=== PATIENT | female | born 1955 | race Caucasian/White ===

== ENCOUNTER → 2020-03-19 11:25 | Outpatient (CLI) | payer MEDICARE, SELFPAY ==
--- NOTE | ~2020-03-19 | MM_ITS ---
EXAMINATION: MM screening [facility] BI w grayson HISTORY: Screening mammogram TECHNIQUE: Craniocaudal and mediolateral oblique 3-D tomosynthesis images were obtained and synthetic 2-D images were generated. CAD analysis was submitted and interpreted. COMPARISON: 07/25/2014, 04/13/2016 bilateral digital screening mammogram examinations BREAST PARENCHYMAL COMPOSITION: There are scattered areas of fibroglandular density. FINDINGS: There are scattered occasional bilateral breast calcifications. There is no evidence of angel picious mass, calcification, or architectural distortion to suggest malignancy in either breast. Ther e has been no suspicious interval change. IMPRESSION: 1. No mammographic evidence of malignancy. 2. Recommend routine screening mammography in one year. BI-RADS Category 2: Benign finding(s). Reviewed, dictated and finalized at location A.
== END ==
PROVIDERS: PCP Family Medicine; Visit Provider Family Medicine
DX: Z12.31 Encounter for screening mammogram for malignant neoplasm of breast (principal)
CPT/HCPCS: 77063; 77067

== ENCOUNTER → 2020-03-23 12:05 | Outpatient (CLI) | payer MEDICARE, SELFPAY ==
--- NOTE | ~2020-03-23 | DEXA_ITS ---
Bone Density Report Name: Mehdi Lai Age: 64 Sex: Female Ethnicity: White Date of : 1955 Indication: postmenopausal; screening for osteoporosis; history of glucocorticoids; asthma or emphysema; Referring Provider: MJ DIAS Study: Bone densitometry was performed. Exam Date: March 23, 2020 Accession number: [id number] Bone Density: Region BMD T-score Z-score Classification AP Spine (L1-L4) 0.881 -1.5 0.3 Osteopenia Femoral Neck (Left) 0.534 -2.8 -1.3 Osteoporosis Total Hip (Left) 0.631 -2.5 -1.3 Osteoporosis Femoral Neck (Right) 0.667 -1.6 -0.1 Osteopenia Total Hip (Right) 0.658 -2.3 -1.1 Osteopenia Total Hip Mean 0.645 -2.4 -1.2 Osteopenia World Health Organization criteria for BMD impression classify patients as: Normal (T-score at or above -1.0), Osteopenia (T-score between -1.0 and -2.5), or Osteoporosis (T-score at or below -2.5). 10-year Fracture Risk: FRAX not reported because: Some T-score for Spine Total or Hip Total or Femoral Neck at or below -2.5 Clinical Information Provided by Patient: Has taken Glucocorticoids Has used the following medications: Calcium Has the following medical conditions: Asthma or Emphysema Patient maximum height was 65 Menopause Age: 45 No regular weight bearing exercise Drinks caffeinated beverages Onset of menses at age 11 Number of children 0 Impression: The patient has osteoporosis, based on the Left Femoral Neck T-score. The patient has risk factors, including: history of glucocorticoid therapy. Discussion: INCREASED RISK OF FRACTURE. BONE DENSITY IS UNDESIRABLY LOW AT ONE OR MORE SKELETAL SITES, CONSISTENT WITH POSTMENOPAUSAL OSTEOPOROSIS. This patient's lowest T-score meets the World Health Organization's (WHO) criteria for osteoporosis at one or more sites (T-score -2.5 or below). In untreated patients, the risk of osteoporotic fracture increases approximately two-fold for each 1.0 SD decrease in T-score. Low bone density is not the only risk factor for fracture; also consider factors such as patient's age, frailty or poor health, risk of falling, risk of injury, previous osteoporotic fracture, family history of osteoporosis, cigarette smoking, low body weight, etc. Not everyone with low bone mineral density has osteoporosis; osteomalacia and other metabolic bone disorders should also be considered. Patients who have osteoporosis should be evaluated for specific diseases and conditions (secondary causes) that may cause or contribute to bone loss. The [place] [employer]ocrinologists (AACE) and National Osteoporosis Foundation (NOF) recommend pharmacologic intervention for all postmenopausal women whose T-score is in this range. The patient should follow a healthful lifestyle (good nutrition with adequate calcium and vitamin D,
== END ==
PROVIDERS: PCP Family Medicine; Visit Provider Family Medicine
DX: Z78.0 Asymptomatic menopausal state (principal); M85.89 Other specified disorders of bone density and structure, multiple sites; M81.0 Age-related osteoporosis without current pathological fracture
CPT/HCPCS: 77080

== ENCOUNTER 2021-02-16 18:42 | Emergency (ER) | payer MEDICARE, SELFPAY ==
--- NOTE | ~2021-02-16 | XR_ITS ---
XR chest 2V DATE: 02/16/2021 19:21 INDICATION: Chest pain. Hyperkalemia. TECHNIQUE: PA and lateral views COMPARISON: None FINDINGS: Normal heart size. No hilar or mediastinal enlargement. Bilateral hyperinflation. No pulmonary infiltrate or consolidation, pleural effusion or pulmonary vas cular congestion or pneumothorax. Diffuse osteopenia. Scoliosis and degenerative spurring of the thoracic and lumbar spine. Probable cholecystectomy. IMPRESSION: Moderate bilateral hyperinflation; no active cardiopulmonary disease Reviewed, dictated and finalized at location A. IMPRESSION: Moderate bilateral hyperinflation; no active cardiopulmonary diseas e
[2021-02-16 18:55] VITALS: BP 154/75; PULSE 91; RESP 17; TEMP 36.4; O2SAT 100
[2021-02-16 19:19] LABS: Basophils Absolute Auto 0.1 K/mm3 (0.0-0.1); Basophils Percent Auto 0.7 % (0.2-1.2); Eosinophils Percent Auto 0.6 % (0-4.4); Hematocrit 41.2 % (37.0-47.0); Hemoglobin 12.5 g/dL (12.0-15.0); Immature Granulocyte Absolute 0.04 K/mm3 (0.00-0.031); Immature Granulocyte Percent A 0.6 % (0-0.5); Lymphocytes Absolute Auto 1.75 K/mm3 (0.9-3.2); Lymphocytes Percent Auto 26.2 % (18.3-44.2); Mean Corpuscular HGB Conc 30.3 g/dl (32-36); Mean Corpuscular Hemoglobin 26.5 pg (26-34); Mean Corpuscular Volume 87.5 fl (80-100); Mean Platelet Volume 9.4 fl (7.4-10.4); Monocytes Absolute Auto 0.4 K/mm3 (0.1-0.6); Monocytes Percent Auto 5.7 % (2.6-8.5); Neutrophils Absolute Auto 4.4 K/mm3 (1.3-6.7); Neutrophils Percent Auto 66.2 % (45.5-73.1); Platelet Count Result 284 k/mm3 (150-375); Red Blood Count 4.71 M/mm3 (4.2-5.4); Red Cell Distribution Width 14.6 % (11.5-14.5); White Blood Count 6.7 K/mm3 (4.5-10.0)
[2021-02-16 19:28] LABS: INR 0.8; Prothrombin Time 11.3 Seconds (11.1-14.7)
[2021-02-16 19:29] LABS: Anion Gap 8 mmol/L (8-16); Blood Urea Nitrogen 14 mg/dL (7-17); Calcium 10.2 mg/dL (8.4-10.2); Carbon Dioxide 30 mmol/L (22-30); Chloride 103 mmol/L (98-107); Estimated CRCL calculation 59 ml/min; Estimated Glomerular Filt Rate > 60; Glucose 120 mg/dL (65-110); Partial Thromboplastin Time 27.8 SECONDS (22.3-36.8); Potassium 4.2 mmol/L (3.4-5.0); Sodium 141 mmol/L (137-145)
[2021-02-16 19:40] LABS: Troponin I < 0.012 ng/mL (0.000-0.034)
--- NOTE | 2021-02-16 20:09 | ED.GENADULT ---
HPI - General Adult General Chief complaint: Recheck/Abnormal Lab/Rx Stated complaint: Sent by PCP for elevated Potassium Time Seen by Provider: 02/16/21 20:01 Source: patient History of Present Illness HPI narrative: Patient is a 65 y/o female complaining of high potassium. She states that she was at Dr. Miller's (her director fraud at [facility]) office earlier today. She had routine labs done and she was told later that her potassium was 6.0 and she was instructed to go to ED for further evaluation. She states that she feels well and has no complaint at this time. Related Data Home Medications Medication Instructions Recorded Confirmed cetirizine 10 mg tablet 10 mg PO DAILY 05/23/19 02/10/21 fluticasone propionate 50 2 spray NASAL BID ml 05/23/19 02/10/21 mcg/actuation nasal spray,suspension levothyroxine 100 mcg tablet 100 mcg PO DAILY 05/23/19 02/10/21 metformin 1,000 mg tablet 1,000 mg PO BID 05/23/19 02/10/21 sitagliptin 100 mg tablet 100 mg PO DAILY 05/23/19 02/10/21 acetaminophen 650 mg PO Q8H 06/02/19 02/10/21 biotin 5,000 mcg PO DAILY 06/02/19 02/10/21 calcium carbonate-vitamin D3 1 tablet PO BID 06/02/19 02/10/21 [Calcium 500 + D (D3)] ferrous sulfate 324 mg PO DAILY 06/02/19 02/10/21 glucosamine sulfate [Glucosamine] 500 mg PO BID 06/02/19 02/10/21 loperamide 2 mg PO Q4H PRN 06/02/19 02/10/21 valacyclovir [Valtrex] 1,000 mg PO Q12H 06/02/19 02/10/21 liothyronine 5 mcg tablet 10 mcg PO BID tablet 03/03/20 02/10/21 glipizide 10 mg PO BID 01/15/21 02/10/21 Allergies Allergy/AdvReac Type Severity Reaction Status Date / Time azithromycin Allergy Intermediate Hives / Verified 02/10/21 15:00 Red Face Beta-Blockers Allergy Intermediate respiratory Verified 02/10/21 15:00 (Beta-Adrenergic Bloc distress bupivacaine Allergy Intermediate Hives Verified 02/10/21 15:00 cephalexin Allergy Intermediate Hives Verified 02/10/21 15:00 codeine Allergy Intermediate Hives / Verified 02/10/21 15:00 Red Face doxycycline Allergy Intermediate Hives Verified 02/10/21 15:00 erythromycin base Allergy Intermediate Hives / Verified 02/10/21 15:00 Red Face oxycodone Allergy Intermediate Hives / Verified 02/10/21 15:00 Red Face prochlorperazine Allergy Intermediate Hives Verified 02/10/21 15:00 promethazine Allergy Intermediate Hives Verified 02/10/21 15:00 epinephrine Allergy Unknown Unknown Verified 02/10/21 15:00 Review of Systems Review of Systems: All systems reviewed & are unremarkable except as noted in HPI and below Constitutional: Constitutional: Denies chills, Denies fever(s), Denies headache(s) and Denies weakness Eyes: Eyes: Denies blurry vision ENT: Denies headache(s) and Denies neck pain Cardiovascular: Cardiovascular: Denies chest pain and Denies dyspnea Respiratory: Respiratory: Denies cough and Denies dyspnea Gastrointestinal: Gastrointestinal: Denies abdominal pain, Denies diarrhea, Denies nausea and Denies vomiting Genitourinary: Genitourinary: Denies hematuria and Denies dysuria Musculoskeletal: Musculoskeletal: Denies back pain and Denies neck pain Neurologic: Denies headache(s) and Denies weakness [facility] Past Medical History Medical History (Updated 02/17/21 @ 00:00 by Brayden Daemon) Chronic cluster headache, not intractable Chronic pain disorder Continuous urine leakage Hypothyroidism, acquired, autoimmune Incontinence of feces MDD (major depressive disorder), recurrent episode, moderate Metacarpophalangeal joint pain of right hand Mixed obsessional thoughts and acts Other iron deficiency anemias Primary osteoarthritis of first carpometacarpal joint of left hand Unspecified open wound of abdominal wall, unspecified quadrant without penetration into peritoneal cavity, subsequent encounter Surgical History Surgical History History of appendectomy History of cholecystectomy History of parathyroidectomy Hist
--- NOTE | 2021-02-16 20:12 | ECG_ITS ---
Measurements Intervals [place] Rate: 75 P: 53 GA: 149 QRS: -14 QRSD: 78 T: 13 QT: 350 QTc: 392 Interpretive Statements SINUS RHYTHM INCOMPLETE RIGHT BUNDLE BRANCH BLOCK LOW VOLTAGE- PRECORDIAL LEADS INFERIOR INFARCT, AGE INDETERMINATE BASELINE ARTIFACT- I, AVR, AVL ABNORMAL ECG Electronically Signed On 02-17-2021 6:26:18 CDT by Teddy Joshi D.O.
[2021-02-16 20:25] VITALS: BP 153/74; PULSE 81; RESP 20
[2021-02-16 21:26] VITALS: PULSE 79; RESP 20; O2SAT 9
== END 2021-02-16 21:57 | disposition home or self-care (01) ==
PROVIDERS: Emergency Provider Emergency Medicine; PCP Family Medicine
DX: Z03.89 Encounter for observation for other suspected diseases and conditions ruled out (principal); G89.29 Other chronic pain; F32.9 Major depressive disorder, single episode, unspecified; M18.9 Osteoarthritis of first carpometacarpal joint, unspecified; D50.9 Iron deficiency anemia, unspecified; E89.0 Postprocedural hypothyroidism; Z87.891 Personal history of nicotine dependence; Z79.84 Long term (current) use of oral hypoglycemic drugs; Z79.899 Other long term (current) drug therapy; Z98.84 Bariatric surgery status; I45.10 Unspecified right bundle-branch block; R94.31 Abnormal electrocardiogram [ECG] [EKG]
CPT/HCPCS: 36415; 71046; 80048; 84484; 85025; 85610; 85730; 93005; 99284

== ENCOUNTER 2021-02-23 14:12 | Outpatient (RCR) | payer MEDICARE, SELFPAY ==
[2021-01-15 09:00] VITALS: BMI 24.9
--- NOTE | 2021-02-11 13:55 | PCWOUND ---
Wound Center Patient did not show for her 1230 appointment today.
--- NOTE | 2021-02-23 13:42 | PCWOUND ---
Addendum entered by Janessa Lopez RN 02/23/21 14:15: Patient showed up at 1412. Original Note: WOCN NOTE patient did not show up for her scheduled appointment. No call was made to cancel.
== END 2021-04-05 09:28 | disposition home or self-care (01) ==
LOC: ANHWOC 14:12
PROVIDERS: PCP Family Medicine; Visit Provider Family Medicine
DX: S31.109D Unspecified open wound of abdominal wall, unspecified quadrant without penetration into peritoneal cavity, subsequent encounter (principal)
CPT/HCPCS: 87070; 87147; 87181; 87186; 87205; 99212; 99213; A9270; G0463

== ENCOUNTER 2021-04-19 10:40 | Outpatient (RCR) | payer MEDICARE, SELFPAY | END 2021-07-05 08:11 | disposition home or self-care (01) | LOC: ANHWOC 10:40 | PROVIDERS: PCP Family Medicine; Visit Provider Plastic Surgery | DX: S31.109D Unspecified open wound of abdominal wall, unspecified quadrant without penetration into peritoneal cavity, subsequent encounter (principal); S71.002D Unspecified open wound, left hip, subsequent encounter | CPT/HCPCS: 99212; A9270; G0463 ==

== ENCOUNTER 2021-05-24 15:11 | Outpatient (CLI) | payer MEDICARE, SELFPAY ==
[2021-05-24 16:46] LABS: Add Urine Microscopic? YES; Appearance Urine Cloudy (Clear); Bacteria Urine Trace /hpf; Bilirubin Urine Negative (Negative); Blood Urine Negative (Negative); Color Urine Yellow (Yellow); Glucose Urine UA Negative (Negative); Ketones Urine Negative (Negative); Leukocyte Esterase Ur Negative LEU/UL (Negative); Nitrate Urine Negative (Negative); Protein Urine Negative (Negative); RBC Urine 0-2 /hpf (0-2); Specific Grav Ur 1.013 (1.001-1.035); Squamous Epithelial Cell Urine Rare /hpf (Few); Urobilinogen Urine Negative mg/dL (<2.0); WBC Urine 0-3 /hpf
== END 2021-05-24 15:12 | disposition home or self-care (01) ==
LOC: ANHLAB 15:15
PROVIDERS: Nurse Practitioner Gerontology; Visit Provider Internal Medicine Hematology & Oncology
DX: R30.0 Dysuria (principal)
CPT/HCPCS: 81001

== ENCOUNTER 2021-07-27 14:52 | Outpatient (CLI) | payer MEDICARE, SELFPAY ==
[2021-07-27 15:32] LABS: Alanine Aminotransferase 16 U/L (4-35); Albumin Level 4.6 g/dL (3.5-5.1); Alkaline Phosphatase 66 U/L (38-126); Anion Gap 10 mmol/L (8-16); Aspartate Amino Transferase 27 U/L (14-36); Bilirubin,Total 0.4 mg/dL (0.2-1.3); Blood Urea Nitrogen 13 mg/dL (7-17); Calcium 9.9 mg/dL (8.4-10.2); Carbon Dioxide 29 mmol/L (22-30); Chloride 102 mmol/L (98-107); Estimated Glomerular Filt Rate > 60; Glucose 84 mg/dL (65-110); Potassium 5.2 mmol/L (3.4-5.0); Sodium 141 mmol/L (137-145)
[2021-07-27 16:04] LABS: Thyroid Stimulating Hormone 0.586 uIU/mL (0.465-4.680); Total Triiodothyronine (T3) 1.04 NG/ML (0.97-1.69)
[2021-07-27 16:25] LABS: Vitamin B12 > 1000.0 pg/mL (239-931)
[2021-07-27 16:38] LABS: Free T4 Free Thyroxine 1.17 ng/mL (0.78-2.19)
== END 2021-07-27 14:53 | disposition home or self-care (01) ==
LOC: ANHLAB 14:54
PROVIDERS: Nurse Practitioner Gerontology; PCP Family Medicine; Visit Provider Internal Medicine Hematology & Oncology
DX: E06.3 Autoimmune thyroiditis (principal); R53.83 Other fatigue
CPT/HCPCS: 36415; 80053; 82607; 84439; 84443; 84480

== ENCOUNTER 2022-01-17 17:15 | Outpatient (CLI) | payer MEDICARE, SELFPAY ==
[2022-01-17 17:55] LABS: Basophils Absolute Auto 0.1 K/mm3 (0.0-0.1); Basophils Percent Auto 0.7 % (0.2-1.2); Eosinophils Absolute Auto 0.1 K/mm3 (0-0.3); Eosinophils Percent Auto 1.2 % (0-4.4); Hematocrit 38.6 % (37.0-47.0); Hemoglobin 11.6 g/dL (12.0-15.0); Immature Granulocyte Absolute 0.03 K/mm3 (0.00-0.031); Immature Granulocyte Percent A 0.4 % (0-0.5); Lymphocytes Absolute Auto 2.13 K/mm3 (0.9-3.2); Lymphocytes Percent Auto 31.1 % (18.3-44.2); Mean Corpuscular HGB Conc 30.1 g/dl (32-36); Mean Corpuscular Hemoglobin 26.1 pg (26-34); Mean Corpuscular Volume 86.9 fl (80-100); Mean Platelet Volume 9.9 fl (7.4-10.4); Monocytes Absolute Auto 0.6 K/mm3 (0.1-0.6); Neutrophils Percent Auto 58.6 % (45.5-73.1); Platelet Count Result 284 k/mm3 (150-375); Red Blood Count 4.44 M/mm3 (4.2-5.4); Red Cell Distribution Width 15.5 % (11.5-14.5); White Blood Count 6.9 K/mm3 (4.5-10.0)
[2022-01-17 19:05] LABS: Iron 44 ug/dL (37-170)
[2022-01-17 19:12] LABS: Folic Acid 18.6 ng/mL (2.76->20)
[2022-01-17 19:14] LABS: Percent Iron Saturation 11 % (20-50)
[2022-01-17 19:41] LABS: Ferritin 6.59 ng/mL (11.1-264)
== END 2022-01-17 17:16 | disposition home or self-care (01) ==
PROVIDERS: PCP Family Medicine; Visit Provider Internal Medicine Hematology & Oncology
DX: D51.9 Vitamin B12 deficiency anemia, unspecified (principal)
CPT/HCPCS: 36415; 82607; 82728; 82746; 83540; 83550; 85025

== ENCOUNTER 2022-03-08 17:14 | Outpatient (CLI) | payer MEDICARE, SELFPAY ==
[2022-03-08 18:00] LABS: Basophils Absolute Auto 0.1 K/mm3 (0.0-0.1); Basophils Percent Auto 0.8 % (0.2-1.2); Eosinophils Absolute Auto 0.1 K/mm3 (0-0.3); Eosinophils Percent Auto 1.2 % (0-4.4); Hematocrit 38.2 % (37.0-47.0); Hemoglobin 11.8 g/dL (12.0-15.0); Immature Granulocyte Absolute 0.05 K/mm3 (0.00-0.031); Immature Granulocyte Percent A 0.7 % (0-0.5); Lymphocytes Absolute Auto 1.95 K/mm3 (0.9-3.2); Lymphocytes Percent Auto 25.5 % (18.3-44.2); Mean Corpuscular HGB Conc 30.9 g/dl (32-36); Mean Corpuscular Volume 87.4 fl (80-100); Monocytes Absolute Auto 0.5 K/mm3 (0.1-0.6); Monocytes Percent Auto 6.4 % (2.6-8.5); Neutrophils Percent Auto 65.4 % (45.5-73.1); Platelet Count Result 278 k/mm3 (150-375); Red Blood Count 4.37 M/mm3 (4.2-5.4); White Blood Count 7.7 K/mm3 (4.5-10.0)
[2022-03-08 18:16] LABS: Alanine Aminotransferase 14 U/L (6-35); Albumin Level 4.2 g/dL (3.5-5.1); Alkaline Phosphatase 53 U/L (38-126); Anion Gap 10 mmol/L (8-16); Aspartate Amino Transferase 26 U/L (14-36); Bilirubin,Total 0.4 mg/dL (0.2-1.3); Blood Urea Nitrogen 15 mg/dL (7-17); Calcium 9.6 mg/dL (8.4-10.2); Carbon Dioxide 27 mmol/L (22-30); Chloride 103 mmol/L (98-107); Estimated Glomerular Filt Rate > 60; Glucose 108 mg/dL (65-110); Potassium 4.6 mmol/L (3.4-5.0); Sodium 140 mmol/L (137-145)
[2022-03-08 18:29] LABS: Free T4 Free Thyroxine 1.19 ng/mL (0.78-2.19)
[2022-03-08 18:42] LABS: Thyroid Stimulating Hormone 0.683 uIU/mL (0.465-4.680); Total Triiodothyronine (T3) 0.93 NG/ML (0.97-1.69)
== END 2022-03-08 17:15 | disposition home or self-care (01) ==
PROVIDERS: PCP Family Medicine; Visit Provider Nurse Practitioner Gerontology
DX: F33.1 Major depressive disorder, recurrent, moderate (principal); E06.3 Autoimmune thyroiditis; D50.9 Iron deficiency anemia, unspecified
CPT/HCPCS: 36415; 80053; 84439; 84443; 84480; 85025

== ENCOUNTER 2022-04-15 15:20 | Outpatient (CLI) | payer MEDICARE, SELFPAY ==
[2022-04-15 15:46] LABS: Basophils Absolute Auto 0.1 K/mm3 (0.0-0.1); Basophils Percent Auto 0.8 % (0.2-1.2); Eosinophils Absolute Auto 0.1 K/mm3 (0-0.3); Hematocrit 37.7 % (37.0-47.0); Hemoglobin 11.7 g/dL (12.0-15.0); Immature Granulocyte Absolute 0.03 K/mm3 (0.00-0.031); Immature Granulocyte Percent A 0.4 % (0-0.5); Lymphocytes Absolute Auto 1.91 K/mm3 (0.9-3.2); Lymphocytes Percent Auto 26.3 % (18.3-44.2); Mean Corpuscular Volume 90.2 fl (80-100); Mean Platelet Volume 9.4 fl (7.4-10.4); Monocytes Absolute Auto 0.5 K/mm3 (0.1-0.6); Monocytes Percent Auto 6.2 % (2.6-8.5); Neutrophils Absolute Auto 4.7 K/mm3 (1.3-6.7); Neutrophils Percent Auto 65.3 % (45.5-73.1); Platelet Count Result 282 k/mm3 (150-375); Red Blood Count 4.18 M/mm3 (4.2-5.4); Red Cell Distribution Width 15.9 % (11.5-14.5); White Blood Count 7.3 K/mm3 (4.5-10.0)
[2022-04-15 15:57] LABS: Anion Gap 6 mmol/L (8-16); Blood Urea Nitrogen 16 mg/dL (7-17); Calcium 9.2 mg/dL (8.4-10.2); Carbon Dioxide 31 mmol/L (22-30); Chloride 100 mmol/L (98-107); Estimated Glomerular Filt Rate 55; Glucose 172 mg/dL (65-110); Potassium 4.7 mmol/L (3.4-5.0); Sodium 137 mmol/L (137-145)
[2022-04-15 17:18] LABS: Folic Acid > 20.0 ng/mL (2.76->20)
== END 2022-04-15 15:21 | disposition home or self-care (01) ==
PROVIDERS: PCP Family Medicine; Referring Provider Internal Medicine Endocrinology, Diabetes & Metabolism; Visit Provider Internal Medicine Hematology & Oncology
DX: D50.9 Iron deficiency anemia, unspecified (principal)
CPT/HCPCS: 36415; 80048; 82607; 82728; 82746; 85025

== ENCOUNTER 2022-06-07 16:39 | Outpatient (CLI) | payer MEDICARE, SELFPAY ==
[2022-06-07 17:46] LABS: Alanine Aminotransferase 16 U/L (6-35); Albumin Level 4.4 g/dL (3.5-5.1); Alkaline Phosphatase 59 U/L (38-126); Anion Gap 9 mmol/L (8-16); Aspartate Amino Transferase 22 U/L (14-36); Bilirubin,Total 0.3 mg/dL (0.2-1.3); Blood Urea Nitrogen 12 mg/dL (7-17); Calcium 9.5 mg/dL (8.4-10.2); Carbon Dioxide 28 mmol/L (22-30); Chloride 101 mmol/L (98-107); Cholesterol 190 mg/dL (0-200); Estimated Glomerular Filt Rate > 60; Glucose 103 mg/dL (65-110); HDL Direct 71 mg/dL; Potassium 5.1 mmol/L (3.4-5.0); Sodium 138 mmol/L (137-145); Triglycerides 185 mg/dL (<150)
[2022-06-07 18:29] LABS: LDL Cholesterol Direct 77 mg/dL
[2022-06-07 18:34] LABS: Thyroid Stimulating Hormone Reflex 0.464 uIU/mL (0.465-4.68)
[2022-06-08 03:20] LABS: Free T4 Free Thyroxine Reflex 1.69 ng/dL (0.78-2.19)
[2022-06-08 04:51] LABS: Total Triiodothyronine (T3) 0.98 NG/ML (0.97-1.69)
== END 2022-06-07 16:40 | disposition home or self-care (01) ==
PROVIDERS: PCP Family Medicine; Visit Provider Internal Medicine Endocrinology, Diabetes & Metabolism
DX: E11.65 Type 2 diabetes mellitus with hyperglycemia (principal)
CPT/HCPCS: 36415; 80053; 80061; 84439; 84443; 84480

== ENCOUNTER 2022-06-21 16:25 | Outpatient (CLI) | payer MEDICARE, SELFPAY ==
[2022-06-30 12:59] LABS: Barbiturates NEGATIVE; Benzodiazepines POSITIVE
[2022-06-30 13:00] LABS: Amphetamines POSITIVE; PCP NEGATIVE ng/mL (<25)
[2022-06-30 13:01] LABS: Cocaine Metabolites NEGATIVE; Marijuana Metabolites NEGATIVE
== END 2022-06-21 16:26 | disposition home or self-care (01) ==
LOC: ANHLAB 16:27
PROVIDERS: PCP Family Medicine; Visit Provider Physician Assistant
DX: F11.20 Opioid dependence, uncomplicated (principal)
CPT/HCPCS: 80307

== ENCOUNTER 2022-12-29 23:45 | Emergency (ER) | payer MEDICARE, SELFPAY ==
--- NOTE | ~2022-12-29 | XR_ITS ---
Right Knee Technique: AP, lateral, and oblique views were obtained. Clinical History: Pain Findings: No fracture or dislocation is seen. Mild tricompartmental degenerative spurring noted. Vasc ular calcifications are present. No joint effusion is seen. Impression: No fracture or dislocation. Mild tricompartmental degenerative spurring. Reviewed, dictated and finalized at location . Impression: No fracture or dislocation. Mild tricompartmental degenerative spurring.
--- NOTE | ~2022-12-29 | XR_ITS ---
Left Knee Technique: AP, lateral, and sunrise views were obtained. Clinical History: Pain Findings: There is a transverse linear lucency in the inferior patella bilaterally and lateral view, which could reflect very subtle nondisplaced fracture. No other fracture or dislocation seen.. Minima l degenerative spurring noted. Soft tissues are unremarkable. No joint effusion is seen. Impression: Questionable nondisplaced transverse patellar fracture. Correlate for point tenderness. Consider MR t o confirm or exclude as indicated. Minimal degenerative spurring. Reviewed, dictated and finalized at location M. Impression: Questionable nondisplaced transverse patellar fracture. Correlate for point ten derness. Consider MR to confirm or exclude as indicated. Minimal degenerative spurring.
--- NOTE | ~2022-12-29 | CT_ITS ---
Non-contrast Head CT History: Head injury COMPARISON: 03/08/2017 Technique: Axial non-contrast imaging of the brain was performed. Dose reduction technique was used on this scan by utilizing automated exposure control and iterative reconstruction technique. The dose -length product (DLP) was 605.33 mGy-cm. Findings: There is no evidence of intracranial hemorrhage, mass lesion, or acute infarct. Brain par enchyma appears normal. The ventricles and subarachnoid spaces are normal in size. The calvarium ap pears normal. The visualized paranasal sinuses and mastoid air cells are clear. Focal soft tissue sw elling noted in the right supraorbital scalp. Impression: No intracranial abnormality seen. Focal soft tissue swelling in the right supraorbital scalp. Reviewed, dictated and finalized at [facility]. Impression: No intracranial abnormality seen. Focal soft tissue swelling in the right supraorbital scalp.
--- NOTE | ~2022-12-29 | CT_ITS ---
CT Facial Bones and Cervical Spine Clinical Indication: Injury Technique: Contiguous axial scans were obtained through the facial bones and cervical spine followed by coronal and sagittal reconstructions. Dose reduction technique was used on this scan by utilizing automated exposure control and iterative reconstruction technique. The dose-length product (DLP) was 195.91 mGy-cm. Findings: CT facial bones: No acute fractures are identified. There are old, healed fracture deformities of the sims of the left maxillary sinus and floor of the left orbit. There is mild left maxillary sinus di sease. The remaining visualized paranasal sinuses are clear. Intraorbital soft tissues appear normal. There is focal soft tissue swelling in the right supraorbital scalp. CT cervical spine: No fractures or subluxation. There is moderate degenerative disc narrowing at C6 -C7. No prevertebral soft tissue swelling. Impression: No acute fracture is seen in the facial bones. No acute fracture or subluxation of the cervical spine. Chronic fracture deformities of the left maxillary sinus and floor the left orbit. Soft tissue swelling in the right supraorbital scalp. Reviewed, dictated and finalized at [facility]. Impression: No acute fracture is seen in the facial bones. No acute fracture or subluxation of the cervical spine. Chronic fracture deformities of the left maxillary sinus and floor the left orb it. Soft tissue swelling in the right supraorbital scalp.
[2022-12-30] VITALS (13 sets, daily range): BP systolic 163–188; BP diastolic 80–93; PULSE 71–91; RESP 12–21; TEMP 36.6; O2SAT 96–100
--- NOTE | 2022-12-30 00:15 | ED.GENADULT ---
HPI - General Adult General Chief complaint: Fall Stated complaint: fall, right eye swelling, left knee pain Time Seen by Provider: 12/30/22 00:08 History of Present Illness HPI narrative: 67-year-old female presented emergency department for evaluation for a ground-level fall. Patient states she was walking and caught her toe on a dog gate and attempted to catch her fall but landed on her knees and her face resulting in facial and knee pain. Related Data Home Medications Medication Instructions Recorded Confirmed cetirizine 10 mg tablet (Zyrtec) 10 mg PO DAILY 05/23/19 12/09/22 fluticasone propionate 50 2 spray intranasal BID 05/23/19 12/09/22 mcg/actuation nasal spray,suspension levothyroxine 100 mcg tablet 100 mcg PO DAILY 05/23/19 12/09/22 (Synthroid) metformin 1,000 mg tablet 1,000 mg PO BID 05/23/19 12/09/22 sitagliptin phosphate 100 mg 100 mg PO DAILY 05/23/19 12/09/22 tablet (Januvia) biotin 2,500 mcg capsule 5,000 mcg PO DAILY 06/02/19 12/09/22 calcium carbonate 500 mg-vitamin 1 tablet PO BID 06/02/19 12/09/22 D3 3.125 mcg (125 unit) tablet (Calcium) liothyronine 5 mcg tablet (Cytomel) 5 mcg PO DAILY 03/03/20 12/09/22 glipizide 5 mg tablet 5 mg PO BID 01/15/21 12/09/22 losartan 50 mg tablet 50 mg PO DAILY 02/01/22 12/09/22 gabapentin 300 mg capsule 600 mg PO QHS 12/09/22 12/09/22 Allergies Allergy/AdvReac Type Severity Reaction Status Date / Time azithromycin Allergy Intermediate Hives / Verified 12/09/22 15:20 Red Face Beta-Blockers Allergy Intermediate respiratory Verified 12/09/22 15:20 (Beta-Adrenergic Bloc distress bupivacaine Allergy Intermediate Hives Verified 12/09/22 15:20 cephalexin Allergy Intermediate Hives Verified 12/09/22 15:20 codeine Allergy Intermediate Hives / Verified 12/09/22 15:20 Red Face doxycycline Allergy Intermediate Hives Verified 12/09/22 15:20 erythromycin base Allergy Intermediate Hives / Verified 12/09/22 15:20 Red Face oxycodone Allergy Intermediate Hives / Verified 12/09/22 15:20 Red Face prochlorperazine Allergy Intermediate Hives Verified 12/09/22 15:20 promethazine Allergy Intermediate Hives Verified 12/09/22 15:20 epinephrine Allergy Unknown Unknown Verified 12/09/22 15:20 Review of Systems Review of Systems: All systems reviewed & are unremarkable except as noted in HPI and below PMFSH Past Medical History Medical History Chronic cluster headache, not intractable Chronic diarrhea Chronic pain disorder Continuous urine leakage Hypothyroidism, acquired, autoimmune Incontinence of feces MDD (major depressive disorder), recurrent episode, moderate Metacarpophalangeal joint pain of right hand Mixed obsessional thoughts and acts Opioid dependence Other iron deficiency anemias Primary osteoarthritis of first carpometacarpal joint of left hand Unspecified open wound of abdominal wall, unspecified quadrant without penetration into peritoneal cavity, subsequent encounter Surgical History Surgical History History of appendectomy History of cholecystectomy History of parathyroidectomy History of thyroidectomy History of tonsillectomy History of umbilical hernia repair Status post gastric bypass for obesity Family History Family History Mother Diabetes mellitus Hypertension Patient's mother is in good health Family history of coronary artery disease Father Diabetes mellitus Patient's father is Family history of cardiovascular disease Social History Social History (Updated 12/09/22 @ 15:28 by Janessa Raza) Social History: Smoking status: Former smoker Tobacco type: cigarettes Second hand tobacco smoke exposure: No Smoking end date: 07/03/91 Alcohol intake: never Substance use: never Substance use type: does not use Lack of Transpor
== END 2022-12-30 04:17 | disposition home or self-care (01) ==
PROVIDERS: Emergency Provider Emergency Medicine; PCP Family Medicine
DX: S82.035A Nondisplaced transverse fracture of left patella, initial encounter for closed fracture (principal); S00.11XA Contusion of right eyelid and periocular area, initial encounter; S80.212A Abrasion, left knee, initial encounter; S80.211A Abrasion, right knee, initial encounter; G89.29 Other chronic pain; G44.029 Chronic cluster headache, not intractable; E06.3 Autoimmune thyroiditis; D50.8 Other iron deficiency anemias; M18.12 Unilateral primary osteoarthritis of first carpometacarpal joint, left hand; E89.0 Postprocedural hypothyroidism; R32 Unspecified urinary incontinence; Z98.84 Bariatric surgery status; Z90.49 Acquired absence of other specified parts of digestive tract; Z87.891 Personal history of nicotine dependence; Z79.84 Long term (current) use of oral hypoglycemic drugs; W18.09XA Striking against other object with subsequent fall, initial encounter
CPT/HCPCS: 70450; 70486; 72125; 73562; 73564; 99284

== ENCOUNTER → 2023-01-02 12:28 | Outpatient (CLI) | payer MEDICARE, SELFPAY ==
--- NOTE | ~2023-01-02 | DEXA_ITS ---
Bone Density Report Name: JH RODRIGUEZ Age: 67 Sex: Female Ethnicity: White Date of : 1955 Indication: postmenopausal osteoporosis; monitoring treatment; height loss; history of glucocorticoids; prior fracture; Referring Provider: JAIME PETTY Study: Bone densitometry was performed. Exam Date: January 02, 2023 Accession number: [id number] Bone Density: Region BMD T-score Z-score Classification AP Spine (L1, L2, L3) 0.872 -1.3 0.6 Osteopenia Femoral Neck (Left) 0.531 -2.9 -1.2 Osteoporosis Total Hip (Left) 0.651 -2.4 -1.0 Osteopenia Femoral Neck (Right) 0.810 -0.3 1.3 Normal Total Hip (Right) 0.706 -1.9 -0.5 Osteopenia Total Hip Mean 0.679 -2.2 -0.8 Osteopenia World Health Organization criteria for BMD impression classify patients as: Normal (T-score at or above -1.0), Osteopenia (T-score between -1.0 and -2.5), or Osteoporosis (T-score at or below -2.5). 10-year Fracture Risk: FRAX not reported because: Some T-score for Spine Total or Hip Total or Femoral Neck at or below -2.5 Treated for osteoporosis Previous Exams: Region Exam Age BMD T-score BMD Change BMD Change Date g/cm2 vs Baseline vs Previous AP Spine(L1, L2, L3) 01/02/2023 67 0.872 -1.3 0.032* 0.032* 03/23/2020 64 0.840 -1.6 Total Hip(Left) 01/02/2023 67 0.651 -2.4 0.019 0.019 03/23/2020 64 0.631 -2.5 Total Hip(Right) 01/02/2023 67 0.706 -1.9 0.048* 0.048* 03/23/2020 64 0.658 -2.3 *Denotes significance at 95% confidence level, LSC for AP Spine = 0.022 g/cm2, LSC for Total Hip = 0.027 g/cm2 Clinical Information Provided by Patient: Has had a low trauma fracture Has taken Glucocorticoids Is being treated for osteoporosis Has used the following medications: Fosamax (i.e. alendronate), Vitamin D, Calcium Patient maximum height was 65 Menopause Age: 45 No regular weight bearing exercise Drinks caffeinated beverages Onset of menses at age 11 Number of children 0 Impression: The patient has established osteoporosis, based on the Left Femoral Neck T-score and the existence of a prior fracture. The patient has risk factors, including: previous fracture, history of glucocorticoid therapy. No significant bone loss was observed. Discussion: PATIENT UNDER TREATMENT WITH NO SIGNIFICANT BMD LOSS SINCE LAST EXAM. In an untreated patient, BMD typically declines with age. A lack of decline or gain is usually a
--- NOTE | ~2023-01-02 | MM_ITS ---
EXAMINATION: MM screening [facility] BI w grayson HISTORY: Screening mammogram TECHNIQUE: Craniocaudal and mediolateral oblique 3-D tomosynthesis images were obtained and synthetic 2-D images were generated. CAD analysis was submitted and interpreted. COMPARISON: 03/19/2020, 04/13/2016, 07/25/2014 BREAST PARENCHYMAL COMPOSITION: The breasts are almost entirely fatty. FINDINGS: No suspicious mass, calcification, or architectural distortion are identified in either lula ast to suggest malignancy. There has been no suspicious interval change. IMPRESSION: 1. No mammographic evidence of malignancy. 2. Recommend routine screening mammography in one year. BI-RADS Category 1: Negative Reviewed, dictated and finalized at location A.
== END ==
PROVIDERS: PCP Nurse Practitioner Gerontology; Visit Provider Nurse Practitioner Gerontology
DX: Z12.31 Encounter for screening mammogram for malignant neoplasm of breast (principal); Z78.0 Asymptomatic menopausal state; M85.88 Other specified disorders of bone density and structure, other site; M81.0 Age-related osteoporosis without current pathological fracture; M85.852 Other specified disorders of bone density and structure, left thigh; M85.851 Other specified disorders of bone density and structure, right thigh
CPT/HCPCS: 77063; 77067; 77080

== ENCOUNTER 2023-06-19 15:21 | Outpatient (CLI) | payer MEDICARE, SELFPAY ==
--- NOTE | ~2023-06-19 | XR_ITS ---
XR foot RT min 3V 06/19/2023 16:00 Indication: Right foot pain Procedure: 4 views right foot Comparison: No prior studies for comparison. Findings: There is mild osteoarthritis of the first MTP joint. Lisfranc joint intact. No acute fractu re or traumatic malalignment. No focal soft tissue abnormality. There is degenerative change of the t alonavicular joint. There is a degenerative calcaneal enthesophyte at the plantar surface. There are vascular calcifications. Impression: 1: Polyarticular osteoarthritis. Reviewed, dictated and finalized at location A. RO[employer] WORK[employer] Impression: 1: Polyarticular osteoarthritis.
== END 2023-06-19 15:22 | disposition home or self-care (01) ==
PROVIDERS: PCP Family Medicine; Visit Provider Physician Assistant
DX: M19.071 Primary osteoarthritis, right ankle and foot (principal); L97.519 Non-pressure chronic ulcer of other part of right foot with unspecified severity
CPT/HCPCS: 73630

== ENCOUNTER 2023-07-09 09:18 | Outpatient (CLI) | payer MEDICARE, SELFPAY ==
--- NOTE | ~2023-07-09 | XR_ITS ---
XR ribs BI 3V w CXR 2V DATE: 07/09/2023 09:52 INDICATION: Fall on back. Bilateral rib pain. TECHNIQUE: PA and lateral chest. 3 views of right ribs. 3 views of the left ribs. COMPARISON: 02/16/2021 2 view chest FINDINGS: There is chronic mild anterior wedging and loss of height of a lower thoracic vertebral bod y. There is dextroscoliosis and mild degenerative spurring of the thoracic spine. No displaced rib fractures are noted. There is diffuse osteopenia. Normal heart size. No hilar or mediastinal enlargement. No pulmonary infiltrate or consolidation, ple ural effusion or pulmonary vascular congestion or pneumothorax is detected. Surgical clips, right upper quadrant. IMPRESSION: No active cardiopulmonary disease Osteopenia Chronic mild compression deformity of lower thoracic vertebral body No displaced rib fracture is detected Status post cholecystectomy Reviewed, dictated and finalized at location B. ILE TRIMMER
== END 2023-07-09 09:19 | disposition home or self-care (01) ==
PROVIDERS: PCP Family Medicine; Visit Provider Family Medicine
DX: M85.80 Other specified disorders of bone density and structure, unspecified site (principal); M43.8X4 Other specified deforming dorsopathies, thoracic region; Z90.49 Acquired absence of other specified parts of digestive tract; W19.XXXA Unspecified fall, initial encounter
CPT/HCPCS: 71046; 71110

== ENCOUNTER 2023-09-12 08:36 | Outpatient (CLI) | payer MEDICARE, SELFPAY ==
[2023-09-12 09:17] LABS: Basophils Absolute Auto 0.1 K/mm3 (0.0-0.1); Basophils Percent Auto 0.9 % (0.2-1.2); Eosinophils Absolute Auto 0.1 K/mm3 (0-0.3); Eosinophils Percent Auto 1.1 % (0-4.4); Hematocrit 36.6 % (37.0-47.0); Hemoglobin 11.2 g/dL (12.0-15.0); Immature Granulocyte Absolute 0.03 K/mm3 (0.00-0.031); Immature Granulocyte Percent A 0.5 % (0-0.5); Lymphocytes Absolute Auto 1.75 K/mm3 (0.9-3.2); Lymphocytes Percent Auto 27.3 % (18.3-44.2); Mean Corpuscular HGB Conc 30.6 g/dl (32-36); Mean Corpuscular Hemoglobin 26.2 pg (26-34); Mean Corpuscular Volume 85.5 fl (80-100); Mean Platelet Volume 9.7 fl (7.4-10.4); Monocytes Absolute Auto 0.5 K/mm3 (0.1-0.6); Neutrophils Percent Auto 63.2 % (45.5-73.1); Platelet Count Result 325 k/mm3 (150-375); Red Blood Count 4.28 M/mm3 (4.2-5.4); Red Cell Distribution Width 15.4 % (11.5-14.5); White Blood Count 6.4 K/mm3 (4.5-10.0)
[2023-09-12 10:08] LABS: Iron 59 ug/dL (37-170)
[2023-09-12 10:11] LABS: Cholesterol 151 mg/dL (0-200); HDL Direct 58 mg/dL; Triglycerides 151 mg/dL (<150)
[2023-09-12 10:16] LABS: Alanine Aminotransferase 16 U/L (6-35); Albumin Level 4.2 g/dL (3.5-5.1); Alkaline Phosphatase 68 U/L (38-126); Anion Gap 8 mmol/L (8-16); Aspartate Amino Transferase 25 U/L (14-36); Bilirubin,Total 0.8 mg/dL (0.2-1.3); Blood Urea Nitrogen 21 mg/dL (7-17); Calcium 9.7 mg/dL (8.4-10.2); Carbon Dioxide 29 mmol/L (22-30); Chloride 100 mmol/L (98-107); Estimated Glomerular Filt Rate > 60; Glucose 143 mg/dL (65-110); Potassium 4.2 mmol/L (3.4-5.0); Sodium 137 mmol/L (137-145)
[2023-09-12 10:18] LABS: Percent Iron Saturation 15 % (20-50)
[2023-09-12 10:22] LABS: NT Pro B Type Natriuretic Pept 133 pg/mL (19.9-100)
[2023-09-12 10:25] LABS: LDL Cholesterol Direct 74 mg/dL
[2023-09-12 10:44] LABS: Total Triiodothyronine (T3) 1.06 NG/ML (0.97-1.69)
[2023-09-12 12:43] LABS: Hemoglobin A1C 7.9 % (<5.7)
[2023-09-12 13:06] LABS: Folic Acid > 20.0 ng/mL (2.76->20)
[2023-09-12 16:30] LABS: Appearance Urine Clear (Clear); Bilirubin Urine Negative (Negative); Blood Urine Negative (Negative); Color Urine Yellow (Yellow); Glucose Urine UA 3+ mg/dL (Negative); Ketones Urine Negative (Negative); Leukocyte Esterase Ur Negative LEU/UL (Negative); Nitrate Urine Negative (Negative); Protein Urine Negative (Negative); Specific Grav Ur 1.024 (1.001-1.035)
[2023-09-12 16:38] LABS: Creatinine Urine 27.3 mg/dL
[2023-09-12 16:47] LABS: Add Urine Microscopic? NO
[2023-09-12 17:04] LABS: Microalbumin Urine Random < 6.0 mg/L (0-16.7)
[2023-09-12 17:05] LABS: MALB Creatinine Ratio < 22.0 mg/g (0-30)
[2023-09-15 07:11] LABS: Triiodothyronine T3 Free 3.3 pg/mL (2.3-4.2)
== END 2023-09-12 08:37 | disposition home or self-care (01) ==
LOC: ANHLAB 08:39
PROVIDERS: Internal Medicine Cardiovascular Disease; Internal Medicine Endocrinology, Diabetes & Metabolism; PCP Family Medicine; Visit Provider Internal Medicine Hematology & Oncology
DX: E78.5 Hyperlipidemia, unspecified (principal); D50.9 Iron deficiency anemia, unspecified; D51.9 Vitamin B12 deficiency anemia, unspecified; E11.65 Type 2 diabetes mellitus with hyperglycemia; E11.59 Type 2 diabetes mellitus with other circulatory complications; I11.0 Hypertensive heart disease with heart failure; I50.32 Chronic diastolic (congestive) heart failure; I15.2 Hypertension secondary to endocrine disorders; E89.0 Postprocedural hypothyroidism; K44.9 Diaphragmatic hernia without obstruction or gangrene; I25.10 Atherosclerotic heart disease of native coronary artery without angina pectoris; I82.890 Acute embolism and thrombosis of other specified veins; N18.2 Chronic kidney disease, stage 2 (mild); I35.1 Nonrheumatic aortic (valve) insufficiency; E06.3 Autoimmune thyroiditis; E07.9 Disorder of thyroid, unspecified; Z79.899 Other long term (current) drug therapy; D50.8 Other iron deficiency anemias
CPT/HCPCS: 36415; 80053; 80061; 82043; 82607; 82728; 82746; 83036; 83540; 83550; 83880; 84439; 84443; 84480; 84481; 85025

== ENCOUNTER 2023-12-04 16:47 | Outpatient (CLI) | payer MEDICARE, SELFPAY ==
[2023-12-05 12:33] LABS: ANA Cascade Screen NEGATIVE (NEGATIVE)
== END 2023-12-04 16:48 | disposition home or self-care (01) ==
PROVIDERS: PCP Family Medicine; Visit Provider Physician Assistant
DX: R53.83 Other fatigue (principal); M25.50 Pain in unspecified joint
CPT/HCPCS: 36415; 86038; 86225; 86235; 86364

== ENCOUNTER 2023-12-21 12:36 | Outpatient (RCR) | payer MEDICARE, SELFPAY ==
[2023-12-21 12:30] VITALS: BMI 23.6
== END 2024-03-06 15:13 | disposition home or self-care (01) ==
LOC: ANHWOC 12:36
PROVIDERS: PCP Family Medicine; Visit Provider Physician Assistant
DX: L97.909 Non-pressure chronic ulcer of unspecified part of unspecified lower leg with unspecified severity (principal); A49.02 Methicillin resistant Staphylococcus aureus infection, unspecified site
CPT/HCPCS: 99204; A9270; G0463

== ENCOUNTER 2024-03-18 15:13 | Outpatient (CLI) | payer MEDICARE, SELFPAY ==
[2024-03-18 15:29] LABS: Basophils Absolute Auto 0.1 K/mm3 (0.0-0.1); Basophils Percent Auto 0.7 % (0.2-1.2); Eosinophils Absolute Auto 0.1 K/mm3 (0-0.3); Eosinophils Percent Auto 0.7 % (0-4.4); Hematocrit 39.7 % (37.0-47.0); Immature Granulocyte Absolute 0.03 K/mm3 (0.00-0.031); Immature Granulocyte Percent A 0.4 % (0-0.5); Lymphocytes Absolute Auto 1.93 K/mm3 (0.9-3.2); Lymphocytes Percent Auto 25.5 % (18.3-44.2); Mean Corpuscular HGB Conc 30.2 g/dl (32-36); Mean Corpuscular Hemoglobin 27.3 pg (26-34); Mean Corpuscular Volume 90.2 fl (80-100); Mean Platelet Volume 9.2 fl (7.4-10.4); Monocytes Absolute Auto 0.5 K/mm3 (0.1-0.6); Neutrophils Absolute Auto 5.1 K/mm3 (1.3-6.7); Neutrophils Percent Auto 66.7 % (45.5-73.1); Platelet Count Result 332 k/mm3 (150-375); Red Cell Distribution Width 13.9 % (11.5-14.5); White Blood Count 7.6 K/mm3 (4.5-10.0)
[2024-03-18 16:34] LABS: Iron 45 ug/dL (37-170)
[2024-03-18 16:43] LABS: Percent Iron Saturation 15 % (20-50)
[2024-03-18 18:39] LABS: Folic Acid 18.2 ng/mL (2.76->20)
== END 2024-03-18 15:14 | disposition home or self-care (01) ==
LOC: ANHLAB 15:15
PROVIDERS: PCP Family Medicine; Visit Provider Internal Medicine Hematology & Oncology
DX: D50.9 Iron deficiency anemia, unspecified (principal); D51.9 Vitamin B12 deficiency anemia, unspecified
CPT/HCPCS: 36415; 82607; 82728; 82746; 83540; 83550; 85025

== ENCOUNTER 2024-06-03 17:41 | Emergency (ER) | payer MEDICARE, SELFPAY ==
--- NOTE | ~2024-06-03 | XR_ITS ---
XR wrist RT min 3V Ordering provider: Varsha Hough APRN History: . pain, radius, FOOSH . Comparison: April 24, 2019 FINDINGS: BONES: Fracture of the distal radius is noted with no significant displacement. No other fractures se en. JOINT SPACES: Slight narrowing of the radiocarpal joint. SOFT TISSUES: Normal. IMPRESSION: Nondisplaced fracture in the distal metaphysis of the right radius Reviewed, dictated and finalized at location A. ICAL RECRUITER
--- NOTE | 2024-06-03 17:52 | ED_ITS ---
HPI - Extremity Injury (Upper) General Chief Complaint: Extremity Injury, Upper Stated Complaint: FALL Time Seen by Provider: 06/03/24 17:54 Source: patient, RN notes reviewed and old records reviewed Mode of arrival: ambulatory Limitations: no limitations History of Present Illness HPI narrative: 68-year-old female presents to the [facility] with complaints right wrist pain. Patient reports that she fell on like he has catching herself with her arm. Denies any head. No loss of consciousness. Occurred approximately 9:00 a.m. this morning Denies any neck or back pain. Normally walks with a cane. Applied a splint after injury. Has hydrocodone at home Treatments prior to arrival: splint Related Data Home Medications Medication Instructions Recorded Confirmed cetirizine 10 mg tablet (Zyrtec) 10 mg PO DAILY 05/23/19 06/03/24 fluticasone propionate 50 2 spray intranasal BID 05/23/19 06/03/24 mcg/actuation nasal spray,suspension levothyroxine 100 mcg tablet 100 mcg PO DAILY 05/23/19 06/03/24 (Synthroid) sitagliptin phosphate 100 mg 100 mg PO DAILY 05/23/19 06/03/24 tablet (Januvia) biotin 2,500 mcg capsule 5,000 mcg PO DAILY 06/02/19 06/03/24 calcium 500 mg (as 1 tablet PO BID 06/02/19 06/03/24 carbonate)-vitamin D3 3.125 mcg (125 unit) tablet (Calcium) liothyronine 5 mcg tablet (Cytomel) 5 mcg PO DAILY 03/03/20 06/03/24 losartan 50 mg tablet 50 mg PO DAILY 02/01/22 06/03/24 metformin 1,000 mg tablet 500 mg PO BID 01/16/23 06/03/24 gabapentin 300 mg capsule 600 mg PO QHS 03/10/23 06/03/24 dapagliflozin propanediol 10 mg 10 mg PO DAILY 02/21/24 06/03/24 tablet (Farxiga) Allergies Allergy/AdvReac Type Severity Reaction Status Date / Time azithromycin Allergy Intermediate Hives / Verified 04/18/24 14:47 Red Face Beta-Blockers Allergy Intermediate respiratory Verified 04/18/24 14:47 (Beta-Adrenergic Bloc distress bupivacaine Allergy Intermediate Hives Verified 04/18/24 14:47 cephalexin Allergy Intermediate Hives Verified 04/18/24 14:47 codeine Allergy Intermediate Hives / Verified 04/18/24 14:47 Red Face doxycycline Allergy Intermediate Hives Verified 04/18/24 14:47 erythromycin base Allergy Intermediate Hives / Verified 04/18/24 14:47 Red Face oxycodone Allergy Intermediate Hives / Verified 04/18/24 14:47 Red Face prochlorperazine Allergy Intermediate Hives Verified 04/18/24 14:47 promethazine Allergy Intermediate Hives Verified 04/18/24 14:47 epinephrine Allergy Unknown Unknown Verified 04/18/24 14:47 Mslolzo-SBR-RxY Reductase AdvReac Intermediate Cramping Verified 04/18/24 14:47 Inhibitor of the Muscles Review of Systems Review of Systems: All systems reviewed & are unremarkable except as noted in HPI and below Constitutional: Constitutional: Reports no additional constitutional complaints ENT: Reports system reviewed and no additional complaints, except as documented Cardiovascular: Cardiovascular: Reports no additional cardiovascular complaints, Denies chest pain and Denies dyspnea Respiratory: Respiratory: Reports no additional respiratory complaints, Denies chest congestion, Denies cough and Denies dyspnea Gastrointestinal: Gastrointestinal: Reports no additional gastrointestinal complaints, Denies abdominal pain, Denies nausea and Denies vomiting Musculoskeletal: Musculoskeletal: Reports as per HPI, Reports arthralgias (Right wrist) and Reports joint swelling (Right wrist) Integumentary/Breasts: Skin/Breast: Reports system reviewed and no additional complaints, except as docu PMFSH Past Medical History Medical History Chronic cluster headache, not intractable Chronic diarrhea Chronic pain disorder Continuous urine leakage Coronary artery spasm Gall stones Habitual self-excoriation Hypothyroidism, acquired, autoimmune Incontinence of feces Kidney stones MDD (major depressive disorder), recurrent episode, moderate Metacarpophalangeal joint pain of right hand Mixed obsessional thoughts and acts Opioid dependence Other iron deficiency anemias Primary osteoarthritis of first carpometacarpal joint of left hand Unspecified open wound of abdominal wall, unspecified quadrant without penetration into peritoneal cavity, subsequent encounter Surgical History Surgical History H/O gynecological procedure 1983 ASCUS colposcopy hysterotomy & D&C *UTERUS/OVARIES INTACTS* June 1984 hysterotomy History of appendectomy History of cholecystectomy History of parathyroidectomy History of thyroidectomy History of tonsillectomy History of umbilical hernia repair Status post gastric bypass for obesity Family History Family History Mother Diabetes mellitus Hypertension Patient's mother is in good health Family history of coronary artery disease Father Diabetes mellitus Patient's father is Family history of cardiovascular disease Social History Social History Social History: Smoking status: Former smoker Tobacco type: cigarettes Second hand tobacco smoke exposure: No Smoking end date: 07/03/91 Alcohol intake: never Substance use: never Substance use type: marijuana Do You Feel Safe in your Home?: Yes Lack of Transportation: No Lack of Food: Never True Current Housing: I Have Housing Concerned About Future Housing: YES Difficulty Paying Gas/Electric Bills: No Difficulty Paying for Meds: YES Currently Unemployed: Decline to Answer Education: Bachelor's Degree Difficulty w/ Childcare or Family Care: Decline to Answer Living arrangements: with family Additional living arrangements comments: lives with mother Occupation/Education: retired Gender identity (if verbalized by the patient): Female Sexual Orientation (if Verbalized by the Patient): Straight or Heterosexual Comments At the time of my signature, I reviewed and agree with the nursing past medical, surgical, social, and family history. There is no relevant family history pertinent to the patient complaint. Exam Const: General: cooperative, no acute distress, well developed, alert, ill appearing chronically and uncomfortable Nutritional Appearance: well nourished Orientation/consciousness: patient oriented x3 Limitations: no limitations HENMT: Head: normal to inspection Ears: hearing grossly normal bilaterally and external ears normal Face/Nose/Sinus: Normal external nose present, normal facial exam and face symmetric Face and sinus: normal facial exam and face symmetric Eyes: General: appearance normal, both eyes and all related structures Alignment and Position: alignment normal Periorbital: periorbital findings normal Neck: Neck: normal visual inspection, full ROM, no lymphadenopathy and no meningeal signs Chest: Chest palpation & inspection: normal inspection of the chest Resp: Effort & Inspection: normal respiratory effort and able to speak in complete sentences Cardio: Rate: regular rate Skin: General skin exam: normal color and no rashes or lesions noted Lesions: no lesions Rashes: no rashes Wounds: no wounds Neuro: General: patient oriented x3, tone normal, moves all extremities and no meningeal signs Cognition (Neuro): normal cognition Speech: normal speech Extrem: General: normal to inspection, full ROM, capillary refill normal and normal gait Right upper extremity: wrist tenderness of the distal radius, swelling of the volar wrist, abnormal ROM pain with active ROM during, ecchymosis (Distal volar), normal vascular exam and radial pulse present; no lacerations, no foreign body, no penetrating wound and no deformity Psych: Appearance: grossly normal and well kempt Mental Status: mental status grossly normal Speech and movement: Normal speech and movement present and Clear speech present Affect: normal affect Attitude: cooperative Course Course Level of Care: Express Care Visit Vital Signs Vital signs: Vital Signs Temperature 98.4 F 06/03/24 17:53 Pulse Rate 83 06/03/24 17:53 Respiratory Rate 18 06/03/24 17:53 Blood Pressure 148/53 H 06/03/24 17:53 Pulse Oximetry 100 06/03/24 17:53 Oxygen Delivery Room Air 06/03/24 17:53 Temperature 98.4 F 06/03/24 17:53 Pulse Rate 83 06/03/24 17:53 Respiratory Rate 18 06/03/24 17:53 Blood Pressure 148/53 H 06/03/24 17:53 Pulse Oximetry 100 06/03/24 17:53 Oxygen Delivery Room Air 06/03/24 17:53 Reviewed MDM - Extremity Injury (Upper) MDM Narrative Medical decision making narrative: Patient sitting in exam room. Nontoxic, vitals stable. Patient in no acute distress Patient presents with continued right wrist pain post fall, FOOSH injury X-ray shows fracture of the radius, splint applied, sling given Patient already has hydrocodone at home Patient appropriate for outpatient treatment and follow-up. Has ortho established with Dr. Davis Discharge instructions reviewed with patient, as well as provided in writing per nursing staff. The instructions also include specific and strict return/GO TO THE ER as well as f/u information. All questions have been answered, and the patient deny any further questions with discharge and discharge plan. Some parts of this dictation were generated by voice recognition software and may contain typographical and/or grammatical inaccuracies. Differential Diagnosis Differential diagnosis: Likely sprain and strain of wrist and fracture of wrist Imaging Data Radiologist's impression: XR wrist RT min 3V Ordering provider: Varsha Hough APRN History: . pain, radius, FOOSH . Comparison: April 24, 2019 FINDINGS: BONES: Fracture of the distal radius is noted with no significant displacement. No other fractures seen. JOINT SPACES: Slight narrowing of the radiocarpal joint. SOFT TISSUES: Normal. IMPRESSION: Nondisplaced fracture in the distal metaphysis of the right radius Critical Care Time Critical Care Time Critical Care Time: No Discharge Plan Discharge Clinical Impression: Right radial fracture Patient Disposition: Home, Self-Care Condition: Stable Instructions: Antibiotic Form, Arm Fracture in Adults (ED), How to Use a Sling (ED), Splint Care (ED) Additional Instructions: Rest, ice and elevate every 2-3 hours for 15-20 minutes while awake. Take the hydrocodone that you have been prescribed for pain 2 to 3 times a day as needed. Follow-up with ortho. Call them 1st thing in the morning for close follow-up appointment For new or worsening symptoms go directly to the emergency room Patient Language: Luxembourger Prescriptions: No Action calcium carbonate-vitamin D3 [Calcium 500 + D (D3)] 500 mg(1,250mg) -125 unit Tablet 1 tablet PO BID biotin 2,500 mcg Capsule 5,000 mcg PO DAILY losartan 50 mg Tablet 50 mg PO DAILY albuterol sulfate 90 mcg/actuation HFA aerosol inhaler 1 inh inhalation Q4H PRN (Reason: shortness of breath or wheezing) Qty: 6.7 0RF mupirocin 2 % ointment See Rx Instructions .ROUTE .COMPLEX Qty: 22 0RF Dose Instruction: APPLY OINTMENT TOPICALLY TO THE AFFECTED AREA(S) TWICE DAILY Rx Instructions: APPLY OINTMENT TOPICALLY TO THE AFFECTED AREA(S) TWICE DAILY divalproex 125 mg tablet,delayed release (DR/EC) See Rx Instructions .ROUTE .COMPLEX Qty: 180 1RF Dose Instruction: Take 1 tablet by mouth twice daily Rx Instructions: Take 1 tablet by mouth twice daily esomeprazole magnesium [Nexium] 40 mg capsule,delayed release(DR/EC) 40 mg PO DAILY Qty: 100 3RF sertraline [Zoloft] 100 mg tablet 150 mg PO DAILY Qty: 135 2RF Januvia 100 mg tablet 100 mg PO DAILY cetirizine [Zyrtec] 10 mg tablet 10 mg PO DAILY levothyroxine [Synthroid] 100 mcg tablet 100 mcg PO DAILY fluticasone propionate 50 mcg/actuation spray,suspension 2 spray NASAL BID liothyronine [Cytomel] 5 mcg tablet 5 mcg PO DAILY metformin 1,000 mg tablet 500 mg PO BID gabapentin 300 mg capsule 600 mg PO QHS Patient Comments: as per podiatry Rx Instructions: 1 in am , 2 in pm montelukast 10 mg tablet See Rx Instructions .ROUTE .COMPLEX Qty: 90 1RF Dose Instruction: Take 1 tablet by mouth once daily Rx Instructions: Take 1 tablet by mouth once daily dapagliflozin propanediol [Farxiga] 10 mg tablet 10 mg PO DAILY Patient Comments: as per endo clonazepam [Klonopin] 1 mg tablet 1 - 2 mg PO DAILY Qty: 60 1RF hydrocodone-acetaminophen 5-325 mg tablet 1 tablet PO Q8H PRN (Reason: pain) Qty: 90 0RF dextroamphetamine-amphetamine [Adderall XR] 20 mg capsule,extended release 24hr 20 mg PO DAILY Qty: 30 0RF Follow-up/Referrals: Tony Davis MD [Physician] - 3 Days (express care follow up Right radial fracture) Janie Ghotra MD [Primary Care Provider] - 1 Week (express care follow up ) Elton Anderson MD [Physician] - Time of Disposition: 18:29
[2024-06-03 17:53] VITALS: BP 148/53; PULSE 83; RESP 18; TEMP 36.9; O2SAT 100
== END 2024-06-03 18:50 | disposition home or self-care (01) ==
PROVIDERS: Emergency Provider Nurse Practitioner; PCP Family Medicine
DX: S52.501A Unspecified fracture of the lower end of right radius, initial encounter for closed fracture (principal); W19.XXXA Unspecified fall, initial encounter; E06.3 Autoimmune thyroiditis; Z87.891 Personal history of nicotine dependence
CPT/HCPCS: 29125; 73110; 99214; A4565; G0463

== ENCOUNTER 2024-06-05 14:44 | Emergency (ER) | payer MEDICARE, SELFPAY ==
--- NOTE | 2024-06-05 14:55 | ED.UPPEXIN ---
HPI - Extremity Injury (Upper) General Chief Complaint: Extremity Injury, Upper Stated Complaint: fingers right hand swollen,blue Time Seen by Provider: 06/05/24 14:56 Source: patient Limitations: no limitations History of Present Illness HPI narrative: 68-year-old female presents with complaint of pain, swelling and cold fingers to right upper extremity Getting progressively worse since wrist fracture. Patient has sugar-tong OCL placed for distal radial fracture. Patient concerned that OCL is too tight. Did attempt to loosen at home by removing some of the All bandages and then really wrapping. Did have some improvement in swelling but continues to have pain, cold fingers, significant swelling. Does report some difficulty elevating due to helping her elderly mother at home, having difficulty putting sling on at home. Patient has appointment with Orthopedics tomorrow. All systems reviewed and negative except as noted above. Related Data Home Medications Medication Instructions Recorded Confirmed cetirizine 10 mg tablet (Zyrtec) 10 mg PO DAILY 05/23/19 06/05/24 fluticasone propionate 50 2 spray intranasal BID 05/23/19 06/05/24 mcg/actuation nasal spray,suspension levothyroxine 100 mcg tablet 100 mcg PO DAILY 05/23/19 06/05/24 (Synthroid) sitagliptin phosphate 100 mg 100 mg PO DAILY 05/23/19 06/05/24 tablet (Januvia) biotin 2,500 mcg capsule 5,000 mcg PO DAILY 06/02/19 06/05/24 calcium 500 mg (as 1 tablet PO BID 06/02/19 06/05/24 carbonate)-vitamin D3 3.125 mcg (125 unit) tablet (Calcium) liothyronine 5 mcg tablet (Cytomel) 5 mcg PO DAILY 03/03/20 06/05/24 losartan 50 mg tablet 50 mg PO DAILY 02/01/22 06/05/24 metformin 1,000 mg tablet 500 mg PO BID 01/16/23 06/05/24 gabapentin 300 mg capsule 600 mg PO QHS 03/10/23 06/05/24 dapagliflozin propanediol 10 mg 10 mg PO DAILY 02/21/24 06/05/24 tablet (Farxiga) Allergies Allergy/AdvReac Type Severity Reaction Status Date / Time azithromycin Allergy Intermediate Hives / Verified 06/05/24 15:33 Red Face Beta-Blockers Allergy Intermediate respiratory Verified 06/05/24 15:33 (Beta-Adrenergic Bloc distress bupivacaine Allergy Intermediate Hives Verified 06/05/24 15:33 cephalexin Allergy Intermediate Hives Verified 06/05/24 15:33 codeine Allergy Intermediate Hives / Verified 06/05/24 15:33 Red Face doxycycline Allergy Intermediate Hives Verified 06/05/24 15:33 erythromycin base Allergy Intermediate Hives / Verified 06/05/24 15:33 Red Face oxycodone Allergy Intermediate Hives / Verified 06/05/24 15:33 Red Face prochlorperazine Allergy Intermediate Hives Verified 06/05/24 15:33 promethazine Allergy Intermediate Hives Verified 06/05/24 15:33 epinephrine Allergy Unknown Unknown Verified 06/05/24 15:33 Qiirmhm-DKP-PfL Reductase AdvReac Intermediate Cramping Verified 06/05/24 15:33 Inhibitor of the Muscles Review of Systems Review of Systems: CONSTITUTIONAL: Denies fever, chills, or sweats. EYES: Denies visual changes, redness, or discharge. ENT: Denies rhinorrhea, congestion, sore throat, or otalgia. CARDIOVASCULAR: Denies chest pain, palpitations, or edema. RESPIRATORY: Denies cough or dyspnea. GASTROINTESTINAL: Denies abdominal pain, nausea, vomiting, or diarrhea. GENITOURINARY: Denies dysuria or hematuria. SKIN: Denies rash or itching. MUSCULOSKELETAL: Denies back pain, joint pain, or myalgia. Reports pain, swelling, cold fingers to right upper extremity. NEUROLOGIC: Denies headache, numbness, or weakness. PSYCHIATRIC: Denies anxiety or depression. All other systems reviewed are negative, except as documented in HPI. [facility] Past Medical History Medical History Chronic cluster headache, not intractable Chronic diarrhea Chronic pain disorder Continuous urine leakage Coronary artery spasm Gall stones Habitual self-excoriation Hypothyroidism, acquired, autoimmune Incontinence of feces Kidney stones MDD (major depressive disorder), recurrent episode, moderate Metacarpophalangeal joint pain of right hand Mixed obsessional thoughts and acts Opioid dependence Other iron deficiency anemias Primary osteoarthritis of first carpometacarpal joint of left hand Unspecified open wound of abdominal wall, unspecified quadrant without penetration into peritoneal cavity, subsequent encounter Surgical History Surgical History H/O gynecological procedure 1983 ASCUS colposcopy hysterotomy & D&C *UTERUS/OVARIES INTACTS* June 1984 hysterotomy History of appendectomy History of cholecystectomy History of parathyroidectomy History of thyroidectomy History of tonsillectomy History of umbilical hernia repair Status post gastric bypass for obesity Family History Family History Mother Diabetes mellitus Hypertension Patient's mother is in good health Family history of coronary artery disease Father Diabetes mellitus Patient's father is Family history of cardiovascular disease Social History Social History Social History: Smoking status: Former smoker Tobacco type: cigarettes Second hand tobacco smoke exposure: No Smoking end date: 07/03/91 Alcohol intake: never Substance use: never Substance use type: marijuana Do You Feel Safe in your Home?: Yes Lack of Transportation: No Lack of Food: Never True Current Housing: I Have Housing Concerned About Future Housing: YES Difficulty Paying Gas/Electric Bills: No Difficulty Paying for Meds: YES Currently Unemployed: Decline to Answer Education: Bachelor's Degree Difficulty w/ Childcare or Family Care: Decline to Answer Living arrangements: with family Additional living arrangements comments: lives with mother Occupation/Education: retired Gender identity (if verbalized by the patient): Female Sexual Orientation (if Verbalized by the Patient): Straight or Heterosexual Course Course Level of Care: Express Care Visit Vital Signs Vital signs: Vital Signs Temperature 37.0 C 06/05/24 15:01 Pulse Rate 79 06/05/24 15:01 Respiratory Rate 16 06/05/24 15:01 Blood Pressure 133/67 06/05/24 15:01 Pulse Oximetry 99 06/05/24 15:01 Oxygen Delivery Room Air 06/05/24 15:01 Temperature 37.0 C 06/05/24 15:01 Pulse Rate 79 06/05/24 15:01 Respiratory Rate 16 06/05/24 15:01 Blood Pressure 133/67 06/05/24 15:01 Pulse Oximetry 99 06/05/24 15:01 Oxygen Delivery Room Air 06/05/24 15:01 Reviewed MDM - Extremity Injury (Upper) MDM Narrative Medical decision making narrative: sugar-tong OCL removed today due to being too tight. patient reported immediate change to pain to her fingers improving. Improvement in cap refill, fingers now warm to touch , dusky appearance improved. Short-arm volar OCL placed. Patient has appointment with Orthopedics tomorrow. Distal neurovascularly intact at discharge. Patient is aware of diagnosis, understands and agrees to treatment plan. Anticipatory guidance given. Patient agrees to follow-up as directed and is aware of reasons to seek care at the emergency department. Portions of this record may have been created with voice recognition software Discharge Plan Discharge Clinical Impression: Fracture of right radius Patient Disposition: Home, Self-Care Condition: Stable Instructions: Wrist Fracture in Adults (ED) Additional Instructions: Your OCL was removed today and a new one was placed. Wear sling during the day to keep right arm elevated. When resting, remove sling and elevat right arm on pillows at level or your heart. Continue to take tylenol every 6 to 8 hours as needed for pain. Follow up at orthopedic appointment tomorrow. Prescriptions: No Action calcium carbonate-vitamin D3 [Calcium 500 + D (D3)] 500 mg(1,250mg) -125 unit Tablet 1 tablet PO BID biotin 2,500 mcg Capsule 5,000 mcg PO DAILY losartan 50 mg Tablet 50 mg PO DAILY albuterol sulfate 90 mcg/actuation HFA aerosol inhaler 1 inh inhalation Q4H PRN (Reason: shortness of breath or wheezing) Qty: 6.7 0RF mupirocin 2 % ointment See Rx Instructions .ROUTE .COMPLEX Qty: 22 0RF Dose Instruction: APPLY OINTMENT TOPICALLY TO THE AFFECTED AREA(S) TWICE DAILY Rx Instructions: APPLY OINTMENT TOPICALLY TO THE AFFECTED AREA(S) TWICE DAILY divalproex 125 mg tablet,delayed release (DR/EC) See Rx Instructions .ROUTE .COMPLEX Qty: 180 1RF Dose Instruction: Take 1 tablet by mouth twice daily Rx Instructions: Take 1 tablet by mouth twice daily esomeprazole magnesium [Nexium] 40 mg capsule,delayed release(DR/EC) 40 mg PO DAILY Qty: 100 3RF sertraline [Zoloft] 100 mg tablet 150 mg PO DAILY Qty: 135 2RF Januvia 100 mg tablet 100 mg PO DAILY cetirizine [Zyrtec] 10 mg tablet 10 mg PO DAILY levothyroxine [Synthroid] 100 mcg tablet 100 mcg PO DAILY fluticasone propionate 50 mcg/actuation spray,suspension 2 spray NASAL BID liothyronine [Cytomel] 5 mcg tablet 5 mcg PO DAILY metformin 1,000 mg tablet 500 mg PO BID gabapentin 300 mg capsule 600 mg PO QHS Patient Comments: as per podiatry Rx Instructions: 1 in am , 2 in pm montelukast 10 mg tablet See Rx Instructions .ROUTE .COMPLEX Qty: 90 1RF Dose Instruction: Take 1 tablet by mouth once daily Rx Instructions: Take 1 tablet by mouth once daily dapagliflozin propanediol [Farxiga] 10 mg tablet 10 mg PO DAILY Patient Comments: as per endo clonazepam [Klonopin] 1 mg tablet 1 - 2 mg PO DAILY Qty: 60 1RF hydrocodone-acetaminophen 5-325 mg tablet 1 tablet PO Q8H PRN (Reason: pain) Qty: 90 0RF dextroamphetamine-amphetamine [Adderall XR] 20 mg capsule,extended release 24hr 20 mg PO DAILY Qty: 30 0RF Follow-up/Referrals: Janie Ghotra MD [Primary Care Provider] - Time of Disposition: 15:24
[2024-06-05 15:01] VITALS: BP 133/67; PULSE 79; RESP 16; TEMP 37; O2SAT 99
--- NOTE | 2024-06-05 17:04 | PC.NURSE ---
At 1555 old splint removed and pt. reports immediately that her fingers and hand do not feel as painful and her fingers are now warm to touch when they had been cool. New splint to be applied.
== END 2024-06-05 16:24 | disposition home or self-care (01) ==
PROVIDERS: Emergency Provider Nurse Practitioner Family; PCP Family Medicine
DX: S52.501A Unspecified fracture of the lower end of right radius, initial encounter for closed fracture (principal); T14.90XA Injury, unspecified, initial encounter; E03.9 Hypothyroidism, unspecified; Z87.891 Personal history of nicotine dependence
CPT/HCPCS: 29125; 99212; G0463

== ENCOUNTER 2024-07-30 09:21 | Outpatient (CLI) | payer MEDICARE, SELFPAY ==
--- NOTE | ~2024-07-30 | MM_ITS ---
EXAMINATION: MM diagnostic chey BI w grayson HISTORY: Possible skin thickening on recent CT examination. TECHNIQUE: Additional 3-D tomosynthesis images of Not dense: There are scattered areas of fibroglandu lar density. were performed and synthetic 2-D images were generated. CAD analysis was submitted and i nterpreted. COMPARISON: Comparison to multiple prior studies sequentially, with oldest reviewed study dated 04/02. BREAST PARENCHYMAL COMPOSITION: Not dense: There are scattered areas of fibroglandular density. FINDINGS: The breasts are symmetric. No suspicious masses, calcifications or architectural distortion . No significant skin thickening is identified. No nipple inversion. IMPRESSION: 1. No evidence for malignancy in either breast. 2. Routine yearly screening mammogram and regular clinical breast examination are recommended. BI-RADS Category 1: Negative Reviewed, dictated and finalized at location A. E WRITER IMPRESSION: 1. No evidence for malignancy in either breast. 2. Routine yearly screening mammogram and regular clinical breast examination a re recommended. BI-RADS Category 1: Negative
== END 2024-07-30 09:22 | disposition home or self-care (01) ==
PROVIDERS: PCP Family Medicine; Visit Provider Physician Assistant
DX: R93.89 Abnormal findings on diagnostic imaging of other specified body structures (principal); N64.59 Other signs and symptoms in breast
CPT/HCPCS: 77062; 77066; G0279

== ENCOUNTER 2024-12-10 16:19 | Outpatient (CLI) | payer MEDICARE, SELFPAY ==
[2024-12-10 17:16] LABS: Alanine Aminotransferase 16 U/L (6-35); Albumin Level 3.9 g/dL (3.5-5.1); Alkaline Phosphatase 60 U/L (38-126); Anion Gap 8 mmol/L (4-12); Aspartate Amino Transferase 25 U/L (14-36); Bilirubin,Total 0.4 mg/dL (0.2-1.3); Blood Urea Nitrogen 19 mg/dL (7-17); Calcium 9.5 mg/dL (8.4-10.2); Carbon Dioxide 28 mmol/L (22-30); Chloride 103 mmol/L (98-107); Estimated Glomerular Filt Rate > 60; Glucose 154 mg/dL (65-110); Potassium 4.9 mmol/L (3.4-5.0); Sodium 139 mmol/L (137-145); Total Protein 6.8 g/dL (6.3-8.2)
[2024-12-10 17:19] LABS: Basophils Absolute Auto 0.1 K/mm3 (0.0-0.1); Basophils Percent Auto 1.1 % (0.2-1.2); Eosinophils Absolute Auto 0.1 K/mm3 (0-0.3); Eosinophils Percent Auto 1.5 % (0-4.4); Hematocrit 33.4 % (37.0-47.0); Hemoglobin 9.9 g/dL (12.0-15.0); Immature Granulocyte Absolute 0.07 K/mm3 (0.00-0.031); Immature Granulocyte Percent A 0.9 % (0-0.5); Lymphocytes Percent Auto 28.2 % (18.3-44.2); Mean Corpuscular HGB Conc 29.6 g/dl (32-36); Mean Corpuscular Volume 87.7 fl (80-100); Mean Platelet Volume 9.7 fl (7.4-10.4); Monocytes Absolute Auto 0.5 K/mm3 (0.1-0.6); Monocytes Percent Auto 7.1 % (2.6-8.5); Neutrophils Absolute Auto 4.6 K/mm3 (1.3-6.7); Neutrophils Percent Auto 61.2 % (45.5-73.1); Platelet Count Result 343 k/mm3 (150-375); Red Blood Count 3.81 M/mm3 (4.2-5.4); Red Cell Distribution Width 14.4 % (11.5-14.5); White Blood Count 7.5 K/mm3 (4.5-10.0)
[2024-12-10 17:21] LABS: Hemoglobin A1C 8.5 % (<5.7)
--- OUTSIDE RECORDS SUMMARY | 2024-12-10 17:21 | XMS_ITS | Clinical Summary ---
Author Organization 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,non-owned Affiliates and Associated Physician Practices is amultiple site organization consisting of ambulatory clinics and hospital sitesin [place], [place], [place] and [place]. This disclosure is being madepursuant to the Care Everywhere program and may not contain all information available regarding this patient. Last updated 18.[facility] Social History Tobacco Use Types Packs/Day Years Used Date Smoking Tobacco: Never Assessed Comments Unknown Sex and Gender Information Value Date Recorded Sex Assigned at Not on file Legal Sex Female 11:02 AM CDT Gender Identity Not on file Sexual Orientation Not on file Plan of Treatment Health Maintenance Due Date Last Done Comments BONE DENSITY TESTING 1954 COLOGUARD (AGES 45-75) - COL ON CA SCREENING 1954 COLON MONITORING 1954 COLONOSCOPY - COLON CA SCREENING 1954 CT COLONOGRAPHY - COLON CA SCREENING 1954 Colorectal Cancer Screening 1954 FIT - COLON CA SCREENING 1954 FLEX SIG - COLON CA SCREENING 1954 LIPID TESTING 1954 MAMMOGRAM 1954 HEPATITIS C SCREENING 10/26/1972 DTAP/TDAP/TD VACCINES (1 - Tdap) 1973 PNEUMOCOCCAL VACCINE 50+ (1 of 1 - PCV) 2004 ZOSTER VACCINE (1 of 2) 2004 COVID-19 VACCINE ( - 2023-2 5 season) 2024 DEPRESSION SCREENING 07/03/2024 INFLUENZA VACCINE (Season Ended) 2025 Respiratory Syncytial Virus (RSV) Vaccine Pt: or over 60 yrs (1 - 1-dose 75+ series) 2029 HEPATITIS B VACCINE Aged Out No longe r eligible based on patient's age to complete this topic HIB VACCINE Aged Out No longer eligi ble based on patient's age to complete this topic HPV VACCINE Aged Out No longer eligi ble based on patient's age to complete this topic MENINGOCOCCAL (Group B) VACC INE SHARED DECISION-MAKING Aged Out No longer eligibl e based on patient's age to complete this topic MENINGOCOCCAL GROUPS A/C/Y/W VACCINE Aged Out No longer eligible b ased on patient's age to complete this topic Insurance Care Teams Body Make Up Artist Relationship Specialty [place] [id number] [address] PCP - General Internal Medicine 11/10/15
--- OUTSIDE RECORDS SUMMARY | 2024-12-10 17:21 | XMS_ITS | Clinical Summary ---
Author Organization [facility] [address] [place] [address] [place] [id number] Care Team Providers Care Pencils Washer Name Role Phone Leticia Crane MD Unavailable [phone] Jenni Leblanc Unavailable [phone] Sherman Goodwin MD Primary Care Provider Allergies Active Allergy Reactions Criticality Noted Date Comments Azithromycin Rash Medium 05/09/2014 Beta-Blockers (Beta-Adrenergic Blocking Agts) Other (See comments),Shortness of breath High 05/09/2014 Cephalexin Rash Medium 05/09/2014 Codeine Rash Medium 11/20/2017 Doxepin Other (See comments) Low 05/09/2014 Doxycycline Rash Medium 05/09/2014 Erythromycin Rash Medium 11/20/2017 Bupivacaine-Epinephrine Swelling Medium 11/20/2017 Other Shortness of breath High 11/20/2017 BETA BLOCKERS Oxycodone Rash Medium 11/20/2017 Prochlorperazine Hives High 05/09/2014 Vgkoqni-Zbl-Dxw Reductase Inhibitors Muscle pain Medium 09/21/2021 Medications carisoprodol (SOMA) 350 mg tabletIndications :Muscle Spasm Take 1 tablet (350 mg total) by mouth every 8 (eight) hours as needed 3 11/12/19 18 Active montelukast (SINGULAIR) 10 mg tablet Take 1 tablet (10 mg total) by mouth daily as needed 2 11/07/19 18 Active sertraline (ZOLOFT) 100 mg tablet Take 1 tablet (100 mg total) by mouth daily Take 2 tablet every night 1 10/31/19 18 Active glucosamine-chond roit-vit C-Mn 500-400 mg capsule Take 1 capsule by mouth daily Active fluticasone (FLONASE) 50 mcg/actuation nasal spray Administer 2 sprays into each nostril daily Active clonazePAM (KlonoPIN) 1 mg tablet Take 1 tablet (1 mg total) by mouth 2 (two) times a day Active biotin 5 mg capsule Take 2 capsules (2 tablets total) by mouth daily gummies Active ferrous sulfate ER 324 mg (65 mg iron) EC tabletIndications :Iron Deficiency Anemia Take 65 mg by mouth daily with breakfast. Active albuterol sulfate 90 mcg/actuation aerosol powdr breath activated Inhale 180 mcg every 4 (four) hours 2 puffs Every 4 hours PRN Active valACYclovir (VALTREX) 1 gram tablet Take 1 tablet (1,000 mg total) by mouth 2 (two) times a day PRN Active acetaminophen 325 mg/10.15 mL suspension Take 20.3 mL (650 mg total) by mouth every 4 (four) hours PRN Active dextroamphetamine -amphetamine XR (ADDERALL XR) 20 mg 24 hr capsule Take 1 capsule (20 mg total) by mouth daily 0 04/21/20 18 Active gabapentin (NEURONTIN) 100 mg capsule Take 1 capsule (100 mg total) by mouth 2 (two) times a day 3 09/20/19 19 Active loperamide (IMODIUM A-D) 2 mg tablet Take 1 tablet (2 mg total) by mouth as needed for diarrhea Taken once a day Active divalproex DR (DEPAKOTE) 125 mg EC tablet Take 1 tablet (125 mg total) by mouth 2 (two) times a day Active oxybutynin XL (DITROPAN-XL) 10 mg 24 hr tablet Take 1 tablet (10 mg total) by mouth nightly 07/25/19 20 Active alendronate (FOSAMAX) 70 mg tablet TAKE 1 TABLET BY MOUTH ONCE A WEEK 03/26/20 20 Active lancets 30 gauge misc 1 each 3 (three) times a day before meals Dx:E11.65 not insulin dependent 300 each 3 11/25/19 21 Active blood-glucose meter kit One touch verio reflect meter test blood sugars three times every day DX E11.65 not insulin dependent 1 each 11/25/19 21 Active HYDROcodone-aceta minophen (NORCO) 5-325 mg per tablet Take by mouth every 8 (eight) hours as needed 09/04/19 Active melatonin 2.5 mg tablet,chewable Take by mouth Active losartan (COZAAR) 50 mg tablet Take 1 tablet (50 mg total) by mouth daily 03/18/20 Active docosanoL (ABREVA) 10 % cream Active mupirocin (BACTROBAN) 2 % ointment APPLY OINTMENT TOPICALLY TWICE DAILY TO THE AFFECTED AREA(S) 08/08/19 Active blood glucose diagnostic (OneTouch Verio test strips) strip USE STRIP TO CHECK GLUCOSE THREE TIMES DAILY 300 each 6 10/21/[address] (NexIUM) 40 mg capsule TAKE 1 CAPSULE BY MOUTH ONCE DAILY BEFORE BREAKFAST 90 capsule 02/16/20 23 Active predniSONE (DELTASONE) 10 mg tablet 01/20/20 23 Active gabapentin (NEURONTIN) 300 mg capsule Take 1 capsule (300 mg total) by mouth 3 (three) times a day 12/23/19 Active ezetimibe (ZETIA) 10 mg tablet Take 1 tablet (10 mg total) by mouth daily 90 tablet 3 02/19/20 24 2024 Active levothyroxine (SYNTHROID) 100 mcg tabletIndications :Postoperative hypothyroidism Take 1 tablet (100 mcg total) by mouth daily 90 tablet 3 02/19/20 24 2024 Active metFORMIN (GLUCOPHAGE) 1,000 mg tabletIndications :Type 2 diabetes mellitus with hyperglycemia, without long-term current use of insulin (HCC) Take 1 tablet (1,000 mg total) by mouth 2 (two) times a day with meals 180 tablet 3 02/19/20 24 2024 Active SITagliptin phosphate (JANUVIA) 100 mg tabletIndications :type 2 diabetes mellitus Take 1 tablet (100 mg total) by mouth daily 90 tablet 3 02/19/20 24 2024 Active liothyronine (CYTOMEL) 5 mcg tabletIndications :Postoperative hypothyroidism Take 1 tablet (5 mcg total) by mouth daily 90 tablet 3 02/19/20 24 2024 Active pen needle, diabetic (Pen Needle) 31 gauge x 5/16 needle Use to inject 1-4 times daily as directed 100 each 1 04/05/20 Active insulin lispro (HumaLOG, ADMELOG) 100 unit/mL pen for injection INJECT 3 TO 8 UNITS THREE TIMES DAILY WITH MEALS 15 mL 1 08/05/19 25 Active glipiZIDE (GLUCOTROL) 5 mg tabletIndications :Type 2 diabetes mellitus with hyperglycemia, without long-term current use of insulin (HCC) TAKE 1 TABLET BY MOUTH TWICE DAILY WITH MEALS 180 tablet 11/12/19 25 Active glipiZIDE (GLUCOTROL) 5 mg tabletIndications :type 2 diabetes mellitus Take 1 tablet (5 mg total) by mouth 2 (two) times a day with meals 180 tablet 1 08/12/19 25 2024 Discontinued Active Problems Problem Noted Date Diagnosed Date Hypertension associated with type 2 diabetes mraiia litus 09/01/2022 Assessment & Plan (02/19/2024 3:31 PM CDT): Chronic, fairly controlled C/w losartan Assessment & Plan (10/29/2023 9:41 PM CDT): Chronic, fairly controlled C/w losartan Assessment & Plan (07/11/2023 12:30 PM TRAINING OFFICER): Chronic, well controlled C/w losartan Assessment & Plan (03/20/2023 4:01 PM CDT): Chronic, well controlled C/w losartan Assessment & Plan (12/26/2022 10:00 PM CDT): Chronic, well controlled C/w losartan Assessment & Plan (09/05/2022 2:43 PM TRAINING OFFICER): Controlled on losartan. No changes. Acquired trigger finger 04/18/2022 Allergic rhinitis 04/18/2022 Knee pain 04/18/2022 Lumbosacral spondylosis without myelopathy 04/18 Osteoarthritis of knee 04/18/2022 Periodic limb movement disorder 04/18/2022 Spinal enthesopathy 04/18/2022 Pain in both hands 11/11/2021 Statin intolerance 09/21/2021 Chest discomfort 02/03/2021 Disorder of pigmentation 02/03/2021 Raynaud's disease 02/03/2021 Shortness of breath 02/03/2021 Vascular insufficiency 01/27/2021 Diarrhea due to malabsorption 04/30/2020 Diarrhea 04/30/2020 Overview (04/30/2020): Added automatically from request for surgery [id number] Osteoarthritis of carpometacarpal (CMC) joint of thumb 02/25/2020 Iron deficiency anemia 06/04/2019 Fracture of zygomaticomaxillary complex 06/28/20 18 Psoriasis 06/22/2018 Diabetic polyneuropathy asso ciated with type 2 diabetes mellitus 11/21/2017 Assessment & Plan (07/11/2023 12:30 PM TRAINING OFFICER): Keep working on better glycemic control C/w gabapentin for symptomatic relief Assessment & Plan (04/19/2022 8:11 AM CDT): Keep working on better glycemic control C/w gabapentin for symptomatic relief Assessment & Plan (09/21/2021 3:19 PM CDT): Keep working on better glycemic control C/w gabapentin for symptomatic relief Assessment & Plan (02/16/2021 1:46 PM CDT): Keep working on better glycemic control C/w gabapentin for symptomatic relief Assessment & Plan (09/07/2020 4:37 PM TRAINING OFFICER): Keep working on better glycemic control C/w gabapentin for symptomatic relief Assessment & Plan (05/18/2020 3:02 PM TRAINING OFFICER): Keep working on better glycemic control C/w gabapentin for symptomatic relief Assessment & Plan (02/10/2020 1:14 PM CDT): Keep working on better glycemic control C/w gabapentin for symptomatic relief Assessment & Plan (11/04/2019 3:27 PM CDT): Keep working on better glycemic control C/w gabapentin for symptomatic relief Assessment & Plan (08/13/2019 11:59 AM TRAINING OFFICER): Keep working on better glycemic control C/w gabapentin for symptomatic relief Assessment & Plan (05/06/2019 4:01 PM TRAINING OFFICER): Keep working on better glycemic control C/w gabapentin for symptomatic relief Assessment & Plan (05/07/2018 2:25 PM TRAINING OFFICER): Keep working on better glycemic control Bariatric surgery status 11/20/2017 Assessment & Plan (05/06/2019 4:01 PM TRAINING OFFICER): serum calcium and ionized gallito and vitamin d 25 ( [place]) and PTH intact - WNL Assessment & Plan (02/12/2018 8:26 PM CDT): Recent serum calcium and ionized gallito and vitamin d 25 ( [place]) and PTH intact - WNL Postoperative hypothyroidism 11/20/2017 Assessment & Plan (02/19/2024 3:35 PM CDT): Chronic, unknown status Patient currently on Synthroid 100 mcg oral daily and cytomel 5 mcg oral daily Recheck thyroid function test today and further plans based on it Assessment & Plan (10/29/2023 9:40 PM CDT): Chronic, stable Patient currently on Synthroid 100 mcg oral daily and cytomel 5 mcg oral daily Assessment & Plan (07/11/2023 12:30 PM TRAINING OFFICER): Chronic, stable Patient currently on Synthroid 100 mcg oral daily and cytomel 5 mcg oral daily Assessment & Plan (03/20/2023 4:01 PM CDT): Chronic, uncontrolled Patient currently on Synthroid 100 mcg oral daily and cytomel 5 mcg oral daily Function test today and further plans based on it Assessment & Plan (12/26/2022 10:00 PM CDT): Patient currently on Synthroid 100 mcg oral daily, Cytomel 10 mg oral daily Recheck TSH today and further plans based on it Instructions for taking levothyroxine Brand name is preferred Take thyroid pill all by itself Take thyroid pill one hour before food or 2 to 3 hours after food Heat, humidity, and direct sunlight will cause a loss of potency Never store thyroid pill in the bathroom The medication should be taken daily. If one or more pills are missing in a week, they can be taken all together at once, making sure at the end of the week, 7 tabs have been taken. Assessment & Plan (09/05/2022 2:44 PM TRAINING OFFICER): Clinically and biochemically euthyroid. No medication changes. Assessment & Plan (04/19/2022 8:12 AM CDT): Patient currently on Synthroid 100 mcg oral daily, Cytomel 10 mg oral daily Recheck TSH today and further plans based on it Instructions for taking levothyroxine Brand name is preferred Take thyroid pill all by itself Take thyroid pill one hour before food or 2 to 3 hours after food Heat, humidity, and direct sunlight will cause a loss of potency Never store thyroid pill in the bathroom The medication should be taken daily. If one or more pills are missing in a week, they can be taken all together at once, making sure at the end of the week, 7 tabs have been taken. Assessment & Plan (09/21/2021 4:34 PM CDT): - Advised c/w Synthroid 100 mcg oral daily - c/w cytomel current dose - recheck TSH today Instructions for taking levothyroxine Brand name is preferred Take thyroid pill all by itself Take thyroid pill one hour before food or 2 to 3 hours after food Heat, humidity, and direct sunlight will cause a loss of potency Never store thyroid pill in the bathroom The medication should be taken daily. If one or more pills are missing in a week, they can be taken all together at once, making sure at the end of the week, 7 tabs have been taken. Assessment & Plan (02/16/2021 1:46 PM CDT): - Advised c/w Synthroid 100 mcg oral daily - c/w cytomel current dose Recheck TSH Instructions for taking levothyroxine Brand name is preferred Take thyroid pill all by itself Take thyroid pill one hour before food or 2 to 3 hours after food Heat, humidity, and direct sunlight will cause a loss of potency Never store thyroid pill in the bathroom The medication should be taken daily. If one or more pills are missing in a week, they can be taken all together at once, making sure at the end of the week, 7 tabs have been taken. Assessment & Plan (09/07/2020 4:37 PM TRAINING OFFICER): - Advised c/w Synthroid 100 mcg oral daily - c/w cytomel current dose Recheck TSH Instructions for taking levothyroxine Brand name is preferred Take thyroid pill all by itself Take thyroid pill one hour before food or 2 to 3 hours after food Heat, humidity, and direct sunlight will cause a loss of potency Never store thyroid pill in the bathroom The medication should be taken daily. If one or more pills are missing in a week, they can be taken all together at once, making sure at the end of the week, 7 tabs have been taken. Assessment & Plan (05/18/2020 3:02 PM TRAINING OFFICER): - Advised c/w Synthroid 100 mcg oral daily - c/w cytomel current dose last TSH 11/2019 WNL Instructions for taking levothyroxine Brand name is preferred Take thyroid pill all by itself Take thyroid pill one hour before food or 2 to 3 hours after food Heat, humidity, and direct sunlight will cause a loss of potency Never store thyroid pill in the bathroom The medication should be taken daily. If one or more pills are missing in a week, they can be taken all together at once, making sure at the end of the week, 7 tabs have been taken. Assessment & Plan (02/10/2020 1:13 PM CDT): - Advised c/w Synthroid 100 mcg oral daily - c/w cytomel current dose - recent TSH 11/2019 WNL Instructions for taking levothyroxine Brand name is preferred Take thyroid pill all by itself Take thyroid pill one hour before food or 2 to 3 hours after food Heat, humidity, and direct sunlight will cause a loss of potency Never store thyroid pill in the bathroom The medication should be taken daily. If one or more pills are missing in a week, they can be taken all together at once, making sure at the end of the week, 7 tabs have been taken. Assessment & Plan (11/04/2019 3:26 PM CDT): - Advised c/w Synthroid 100 mcg oral daily - c/w cytomel current dose - recheck TSH Instructions for taking levothyroxine Brand name is preferred Take thyroid pill all by itself Take thyroid pill one hour before food or 2 to 3 hours after food Heat, humidity, and direct sunlight will cause a loss of potency Never store thyroid pill in the bathroom The medication should be taken daily. If one or more pills are missing in a week, they can be taken all together at once, making sure at the end of the week, 7 tabs have been taken. Assessment & Plan (08/13/2019 11:59 AM TRAINING OFFICER): - Advised c/w Synthroid 100 mcg oral daily - c/w cytomel current dose Instructions for taking levothyroxine Brand name is preferred Take thyroid pill all by itself Take thyroid pill one hour before food or 2 to 3 hours after food Heat, humidity, and direct sunlight will cause a loss of potency Never store thyroid pill in the bathroom The medication should be taken daily. If one or more pills are missing in a week, they can be taken all together at once, making sure at the end of the week, 7 tabs have been taken. Assessment & Plan (05/06/2019 4:00 PM TRAINING OFFICER): - Advised c/w Synthroid 100 mcg oral daily - c/w cytomel current dose - will recheck TFT , based on that further plans Instructions for taking levothyroxine Brand name is preferred Take thyroid pill all by itself Take thyroid pill one hour before food or 2 to 3 hours after food Heat, humidity, and direct sunlight will cause a loss of potency Never store thyroid pill in the bathroom The medication should be taken daily. If one or more pills are missing in a week, they can be taken all together at once, making sure at the end of the week, 7 tabs have been taken. Assessment & Plan (01/13/2019 10:37 PM CDT): - Advised c/w Synthroid 100 mcg oral daily - c/w cytomel current dose - reviewed recent labs - TSH 10/2018 - WNL Instructions for taking levothyroxine Brand name is preferred Take thyroid pill all by itself Take thyroid pill one hour before food or 2 to 3 hours after food Heat, humidity, and direct sunlight will cause a loss of potency Never store thyroid pill in the bathroom The medication should be taken daily. If one or more pills are missing in a week, they can be taken all together at once, making sure at the end of the week, 7 tabs have been taken. Assessment & Plan (11/06/2018 12:05 PM CDT): - Advised c/w Synthroid 100 mcg oral daily - c/w cytomel current dose - reviewed recent labs - TSH 10/2018 - WNL Instructions for taking levothyroxine Brand name is preferred Take thyroid pill all by itself Take thyroid pill one hour before food or 2 to 3 hours after food Heat, humidity, and direct sunlight will cause a loss of potency Never store thyroid pill in the bathroom The medication should be taken daily. If one or more pills are missing in a week, they can be taken all together at once, making sure at the end of the week, 7 tabs have been taken. Assessment & Plan (05/07/2018 2:24 PM TRAINING OFFICER): - Advised c/w Synthroid 100 mcg oral daily - c/w cytomel current dose - labs LIANG ( pt leaving out of town in 2 days For 2 months, ) then advised to get them done Jul 2017 If cannot go in for next 2 days Instructions for taking levothyroxine Brand name is preferred Take thyroid pill all by itself Take thyroid pill one hour before food or 2 to 3 hours after food Heat, humidity, and direct sunlight will cause a loss of potency Never store thyroid pill in the bathroom The medication should be taken daily. If one or more pills are missing in a week, they can be taken all together at once, making sure at the end of the week, 7 tabs have been taken. Assessment & Plan (02/12/2018 8:22 PM CDT): Reviewed recent thyroid lab test results - Advised to cut back on Synthroid 100 mcg oral daily - c/w cytomel current dose - labs before next visit Instructions for taking levothyroxine Brand name is preferred Take thyroid pill all by itself Take thyroid pill one hour before food or 2 to 3 hours after food Heat, humidity, and direct sunlight will cause a loss of potency Never store thyroid pill in the bathroom The medication should be taken daily. If one or more pills are missing in a week, they can be taken all together at once, making sure at the end of the week, 7 tabs have been taken. Assessment & Plan (11/21/2017 8:54 AM CDT): Reviewed recent thyroid lab test results - pt. On high dose Biotin, could also a reason for her low TSH, but pt. Also symptomatic , so try cutting back on synthroid slightly - Advised to cut back on Synthroid 125 mcg oral d- 6 x weekly , skip taking on Monday - c/w cytomel current dose - labs before next visit Instructions for taking levothyroxine Brand name is preferred Take thyroid pill all by itself Take thyroid pill one hour before food or 2 to 3 hours after food Heat, humidity, and direct sunlight will cause a loss of potency Never store thyroid pill in the bathroom The medication should be taken daily. If one or more pills are missing in a week, they can be taken all together at once, making sure at the end of the week, 7 tabs have been taken. Urinary tract infection 11/09/2017 Anemia 06/19/2015 Hyperlipidemia 06/19/2015 Type 2 diabetes mellitus wit h hyperglycemia, without long-term current use of insulin 02/13/2014 Assessment & Plan (02/19/2024 3:34 PM CDT): Chronic, uncontrolled , worsening A1c - 8.6 % goal A1c atleast less than 7.5 % Reviewed Dexcom download Average glucose 196 Target blood sugar range 43% High 40% Very high 17% low 0 % Counseled on diet and exercise Work on Stress management restart and increase Farxiga to 10 mg oral daily ( advised patient to try to fill the medication for pharmacy if she can not afford it or it is very expensive then we can re apply for patient assistance program ) Continue metformin and Januvia Follow up in 3 months Assessment & Plan (10/29/2023 9:44 PM CDT): Chronic, uncontrolled , stable still above goal A1c - 7.6 % Pt forgot to bring her dexcom reader, advise to bring it with each visit Counseled on diet and exercise Work on Stress management Continue Farxiga 5 mg oral daily ( tolerating well ) Continue metformin and Januvia Follow up in 6 months Assessment & Plan (07/11/2023 12:31 PM TRAINING OFFICER): Chronic, uncontrolled , improving but still above goal A1c - 7.7 % Counseled on diet and exercise Work on Stress management Continue Farxiga 5 mg oral daily ( tolerating well ) Continue rest all oral meds the same Educated patient on how to use dexcom g 7 CGM Follow up in 6 months Assessment & Plan (03/20/2023 4:01 PM CDT): Chronic, uncontrolled , worsening A1c - 9.0 % Advise pt to stop eating sugary stuff Work on Stress management Advise to start taking Lantus 10 units SQ daily Also restart Farxiga 5 mg oral daily Continue rest all oral meds the same Check BS more often Will try to get pt on dexcom g 7 CGM Follow up in 2 months Assessment & Plan (12/26/2022 10:01 PM CDT): Chronic, uncontrolled, worsening A1c 7.5% Counseled on diet and exercise Advised to restart Farxiga 5 mg oral daily ( advise pt to stop if recurrent yeast infections ) Continue rest all medications the same Work on stress management Recommend annual dilated eye exam Daily foot care Follow-up as scheduled Assessment & Plan (09/05/2022 2:56 PM TRAINING OFFICER): Chronic stable problem. Continue same medication regimen. Update MA/Cr today. Assessment & Plan (04/19/2022 8:12 AM CDT): Chronic, uncontrolled, slowly improving A1c 7.2% Counseled on diet and exercise Advised to restart Farxiga Continue rest all medications the same Work on stress management Recommend annual dilated eye exam Daily foot care Follow-up as scheduled Assessment & Plan (09/21/2021 4:35 PM CDT): Chronic, uncontrolled, worsening counseled on diet and exercise A1c 7.6 % continue current dose of Januvia and metformin C/w Glipizide to 10 mg oral BID with meals - start Farxiga 10 mg oral daily - advised good oral hydration Advise to check BS pre meals and f/w in 6 months with BS log Try to obtain patient last eye exam copy Daily foot care Reminded to bring in blood sugar diary at next visit. Dietary recommendations for ADA diet. Regular aerobic exercise. Discussed ways to avoid symptomatic hypoglycemia. Discussed sick day management. Discussed foot care. Reminded to get yearly retinal exam. Medication changes per orders. Diabetes will be reassessed in 6 months Assessment & Plan (02/16/2021 1:46 PM CDT): Chronic, overall fair controlled counseled on diet and exercise A1c 7.5 % continue current dose of Januvia and metformin C/w Glipizide to 10 mg oral BID with meals Advise to check BS pre meals and f/w in 4 months with BS log Strongly advised to stop eating candy Advise to make a eye doctor LIANG Daily foot care Continue current treatment regimen. Reminded to bring in blood sugar diary at next visit. Dietary recommendations for ADA diet. Regular aerobic exercise. Discussed ways to avoid symptomatic hypoglycemia. Discussed sick day management. Discussed foot care. Reminded to get yearly retinal exam. Diabetes will be reassessed in 6 months Assessment & Plan (09/07/2020 4:38 PM TRAINING OFFICER): Chronic, uncontrolled, improving counseled on diet and exercise A1c 7.3 % continue current dose of Januvia and metformin C/w Glipizide to 10 mg oral BID with meals Advise to check BS pre meals and f/w in 4 months with BS log Strongly advised to stop eating candy Advise to make a eye doctor LIANG Daily foot care Continue current treatment regimen. Reminded to bring in blood sugar diary at next visit. Dietary recommendations for ADA diet. Regular aerobic exercise. Discussed ways to avoid symptomatic hypoglycemia. Discussed sick day management. Discussed foot care. Reminded to get yearly retinal exam. Diabetes will be reassessed in 4 months Assessment & Plan (05/18/2020 3:01 PM TRAINING OFFICER): Chronic, uncontrolled, unchanged counseled on diet and exercise A1c 7.7 % continue current dose of Januvia and metformin C/w Glipizide to 10 mg oral BID with meals Advise to check BS pre meals and f/w in 3 months with BS log Strongly advised to stop eating candy Advise to make a eye doctor LIANG Daily foot care Continue current treatment regimen. Reminded to bring in blood sugar diary at next visit. Dietary recommendations for ADA diet. Regular aerobic exercise. Discussed ways to avoid symptomatic hypoglycemia. Discussed sick day management. Discussed foot care. Reminded to get yearly retinal exam. Diabetes will be reassessed in 3 months Assessment & Plan (02/10/2020 4:52 PM CDT): Chronic, uncontrolled, worsening counseled on diet and exercise A1c 7.7 % continue current dose of Januvia and metformin Advised to increase Glipizide to 10 mg oral BID with meals Advise to check BS pre meals and f/w in 3 months with BS log Advise to make a eye doctor LIANG Daily foot care Continue current treatment regimen. Reminded to bring in blood sugar diary at next visit. Dietary recommendations for ADA diet. Regular aerobic exercise. Discussed ways to avoid symptomatic hypoglycemia. Discussed sick day management. Discussed foot care. Reminded to get yearly retinal exam. Diabetes will be reassessed in 3 months Assessment & Plan (11/04/2019 3:27 PM CDT): Chronic, overall fair controlled counseled on diet and exercise A1c 7.3 % continue current medication regimen Advised to increase Glipizide if after joint steroid injection or taking oral steroids her BS go up Advise to check BS pre meals and f/w in 3 months with BS log Advise to do labs fasting Advise to make a eye doctor LIANG once Covid 19 pandemic goes down Daily foot care Continue current treatment regimen. Reminded to bring in blood sugar diary at next visit. Dietary recommendations for ADA diet. Regular aerobic exercise. Discussed ways to avoid symptomatic hypoglycemia. Discussed sick day management. Discussed foot care. Reminded to get yearly retinal exam. Diabetes will be reassessed in 3 months Assessment & Plan (08/13/2019 11:59 AM TRAINING OFFICER): Diabetes is slightly worsening A1c 7.5 % Due to poor pt eating habits and unhealthy snacking Advise to intensify lifestyle habits continue current medication regimen Advised to increase Glipizide if after joint steroid injection her BS go up Advise to check BS pre meals and f/w in 3 months with BS log Continue current treatment regimen. Reminded to bring in blood sugar diary at next visit. Dietary recommendations for ADA diet. Regular aerobic exercise. Discussed ways to avoid symptomatic hypoglycemia. Discussed sick day management. Discussed foot care. Reminded to get yearly retinal exam. Diabetes will be reassessed in 3 months Assessment & Plan (05/06/2019 4:00 PM TRAINING OFFICER): Diabetes is improving A1c 7.3 % Advise to intensify lifestyle habits continue current medication regimen Advised to increase Glipizide if after joint steroid injection her BS go up Advise to check BS pre meals and f/w in 3 months with BS log Continue current treatment regimen. Reminded to bring in blood sugar diary at next visit. Dietary recommendations for ADA diet. Regular aerobic exercise. Discussed ways to avoid symptomatic hypoglycemia. Discussed sick day management. Discussed foot care. Reminded to get yearly retinal exam. Diabetes will be reassessed in 3 months Assessment & Plan (01/13/2019 10:37 PM CDT): Diabetes is improving Advise to intensify lifestyle habits continue current medication regimen Advise to check BS pre meals and f/w in 3 months with BS log Continue current treatment regimen. Reminded to bring in blood sugar diary at next visit. Dietary recommendations for ADA diet. Regular aerobic exercise. Discussed ways to avoid symptomatic hypoglycemia. Discussed sick day management. Discussed foot care. Reminded to get yearly retinal exam. Diabetes will be reassessed in 6 weeks Assessment & Plan (11/06/2018 12:05 PM CDT): Diabetes is worsening. A1c - 7.7 % Advise to intensify lifestyle habits continue current medication regimen Advise to check BS pre meals and f/w in 6 weeks with BS log Continue current treatment regimen. Reminded to bring in blood sugar diary at next visit. Dietary recommendations for ADA diet. Regular aerobic exercise. Discussed ways to avoid symptomatic hypoglycemia. Discussed sick day management. Discussed foot care. Reminded to get yearly retinal exam. Diabetes will be reassessed in 6 weeks Assessment & Plan (05/07/2018 2:23 PM TRAINING OFFICER): Diabetes is fair controlled , unchanged A1c today - 7.3 % . - labs in 3 months Continue current treatment regimen. Reminded to bring in blood sugar diary at next visit. Dietary recommendations for ADA diet. Regular aerobic exercise. Discussed ways to avoid symptomatic hypoglycemia. Discussed sick day management. Discussed foot care. Reminded to get yearly retinal exam. Diabetes will be reassessed in 6 months. Assessment & Plan (02/12/2018 8:25 PM CDT): Diabetes is improving with treatment. A1c today - 7.3 % Continue current treatment regimen. Reminded to bring in blood sugar diary at next visit. Dietary recommendations for ADA diet. Regular aerobic exercise. Discussed ways to avoid symptomatic hypoglycemia. Discussed sick day management. Discussed foot care. Reminded to get yearly retinal exam. Diabetes will be reassessed in 3 months. Assessment & Plan (11/21/2017 8:51 AM CDT): Diabetes is uncontrolled, recent A1c 10/2017 - 7.7 % . - Decrease Glucotrol to 5 mg oral twice daily - continue Januvia 100 mg oral daily - continue taking Metformin 1000 mg oral twice daily after meals - advise to eat more scheduled ortion controlled meal - high protein and complex carbs - advise to check Blood sugars - 2 x - before breakfast and before dinner And with any low blood sugar symptoms - labs before next visit - follow up in 3 months Reminded to bring in blood sugar diary at next visit. Dietary recommendations for ADA diet. Regular aerobic exercise. Discussed ways to avoid symptomatic hypoglycemia. Discussed sick day management. Discussed foot care. Reminded to get yearly retinal exam. Medication changes per orders. Diabetes will be reassessed in 3 months. 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 11/21/2017 05/24/2024 Encounters Date Type Department Care Team Description 10/08/2024 Telephone [facility] Diabetes and Endocrinology [address] [place] [id number] Leticia Crane MD [facility] from Last 3 Months Immunizations Immunization Administration Dates Next Due Flucelvax Influenza Quad 02/27/2019,02/26/2018 Influenza, Quad, Adjuvantated, Intramuscular Influenza, Quadrivalent, Spl it, Preservative Free, Intramuscular 02/24/2017,03/04/2016 Influenza, Trivalent, IM (MDV) 04/06/2015 Pneumococcal Polysaccharide PPV23 03/31/2018 Tdap 12/18/2014 ZOSTER Recombinant 05/22/2019,02/27/2019 Surgical History Surgery Date Site/Laterality Comments GASTRIC BYPASS THYROIDECTOMY CARPAL TUNNEL RELEASE Bilateral HERNIA REPAIR TONSILLECTOMY AND ADENOIDECTOMY APPENDECTOMY PARATHYROIDECTOMY CHOLECYSTECTOMY HAND SURGERY Left JOSE-EN-Y PROCEDURE TOTAL BODY LIFT COLONOSCOPY last screening 2014 COLPOSCOPY DILATION AND CURETTAGE OF UTERUS HYSTEROTOMY WRIST FRACTURE SURGERY Right Medical History Medical History Date Comments Type 2 diabetes mellitus (HCC) Sleep apnea Ventricular hypertrophy Osteoarthritis GERD (gastroesophageal reflux disease) Anxiety Restless leg syndrome Herpes zoster Injury of digital nerve of index finger left Incontinence of feces Incontinence of urine Perea syndrome (HCC) Anemia Asthma Family History Medical History Relation Name Comments Diabetes Father Hypertension Father Liver disease Father Diabetes type II Mother Hyperlipidemia Mother Hypertension Mother Anxiety disorder Sister Diabetes Sister Diabetes insipidus Sister Hypertension Sister Relation Name Status Comments Father Mother Sister Social History Tobacco Use Types Packs/Day Years Used Date Smoking Tobacco: Former Smokeless Tobacco: Never Tobacco Cessation:Counseling Given: Not Answered Alcohol Use Standard Drinks/Week Comments Yes 0 (1 standard drink = 0.6 oz pur e alcohol) rarely AUDIT-C Answer Date Recorded Frequency of Alcohol Consumption Not on file 04/21/2022 Q2: How many drinks containi ng alcohol do you have on a typical day when you are drinking? Patient does not drink Frequency of Binge Drinking Not on file 04/03 PHQ-2 Answer Date Recorded PHQ-2 Total Score (If total score is 3 or more points, staff should administer the PHQ-9) 0 04/21/2022 Comments No Sex and Gender Information Value Date Recorded Sex Assigned at Not on file Legal Sex Female 10:44 PM TRAINING OFFICER Gender Identity Not on file Sexual Orientation Not on file Obstetrics History Last Filed Vital Signs Vital Sign Reading Time Taken Comments Blood Pressure 130/80 08/12/2024 1:42 PM TRAINING OFFICER Pulse 88 08/12/2024 1:42 PM TRAINING OFFICER Temperature 36.7 C (98 F) 05/13/2020 12:47 PM TRAINING OFFICER Respiratory Rate 17 08/12/2024 1:42 PM TRAINING OFFICER Oxygen Saturation 97% 04/21/2022 10:57 AM CDT Inhaled Oxygen Concentration - - Weight 54.4 kg (120 lb) 08/12/2024 1:42 PM TRAINING OFFICER Height 162.6 cm (5' 4) 08/12/2024 1:42 PM TRAINING OFFICER Body Mass Index 20.6 08/12/2024 1:42 PM TRAINING OFFICER Plan of Treatment Health Maintenance Due Date Last Done Comments Breast Cancer Screening-Mammogram 1955 Hepatitis C Screening 1955 Osteoporosis Screening-Bone Density Scan 1955 Hepatitis B Screening 1972 Pneumococcal vaccine 65+ (2 of 2 - PCV) 03/31/2019 03/31/2018 Well Visit 65+ 11/01/2019 Dilated Eye Exam 04/18/2023 04/18/2022, 04/05/2021 Depression Screening 04/21/2023 04/21/2022, 02/16/2021, 09/07/2020, Additional history exists Fall Risk Assessment 10/24/2024 10/25/2023, 05/13/20 DTaP/Tdap/Td Vaccine (2 - Td or Tdap) 12/18/2024 12/18/2014 Hemoglobin A1C 02/09/2025 08/12/2024, 0803/2024, 10/25/2023, Additional history exists Albumin Creatinine Ratio, Urine 02/18/2025 02/19/2024, 09/06/2022, 02/16/2021, Additional history exists Foot Exam 02/18/2025 02/19/2024, 10/02, 07/10/2023, Additional history exists Lipid Panel 02/18/2025 02/19/2024, 12/0 12/2021, 02/16/2021, Additional history exists eGFR 02/18/2025 02/19/2024, 12/0 12/2021, 02/16/2021, Additional history exists Influenza Vaccine (Season Ended) 2025 02/28/2020, 02/27/2019, 02/26/2018, Additional history exists Colon Cancer Screening-Colonoscopy 05/13/2030 05/13/2020 Zoster Vaccine Completed 05/22/2019, 02/27/2019 Colon Cancer Screening-CT Colonography Discontinued 05/13/2020 Colon Cancer Screening-DNA Stool Discontinued 05/13/20 Colon Cancer Screening-FIT Discontinued 05/13/2020 Colon Cancer Screening-Sigmoidoscopy Discontinued 05/13/2020 Procedures Procedure Name Priority Date/Time Associated Diagnosis Comments POCT HEMOGLOBIN A1C Routine 08/12/2024 1 :44 PM TRAINING OFFICER Type 2 diabetes mellitus with hyperglycemia, without long-term current use of insulin (HCC) EGFR Routine 02/19/2024 2:47 PM CDT Type 2 diabetes mellitus with hyperglycemia, without long-term current use of insulin (HCC) Hypertension associated with type 2 diabetes mellitus (HCC) LIPID PANEL Routine 02/19/2024 2:47 PM CDT Type 2 diabetes mellitus with hyperglycemia, without long-term current use of insulin (HCC) ALBUMIN CREATININE RATIO, URINE Routine 02/19/2024 2:47 PM CDT Type 2 diabetes mellitus with hyperglycemia, without long-term current use of insulin (HCC) Hypertension associated with type 2 diabetes mellitus (HCC) DIABETIC EYE EXAM Routine 04/18/2022 COLONOSCOPY 05/13/2020 2:37 PM TRAINING OFFICER from Last 3 Months or Most Recently Relevant to Health Maintenance Results * POCT hemoglobin A1c (08/12/2024 1:44 PM TRAINING OFFICER) Hemoglobin A1C, POC 9.1 4.0 - 5.6 % Blood 08/12/2024 1:44 PM TRAINING OFFICER Leticia Miller MD POINT OF CARE TEST ORDERABLES Final Result * eGFR (02/19/2024 2:47 PM CDT) eGFR >90 >=60 mL/min/1. 73 m2 Comment: Interpretive Data Reference Interval Normal >/= 90 mL/min/1.73m2 Mildly decreased* 60 - 89 mL/min/1.73m2 Mildly to moderately decreased 45 - 59 mL/min/1.73m2 Moderately to severely decreased 30 - 44 mL/min/1.73m2 Severely decreased 15 - 29 mL/min/1.73m2 Kidney Failure < 15 mL/min/1.73m2 *Relative to young adult level Estimated glomerular filtration rate is determined by the 2020 CKD-EPI equation recommended by the National Kidney Foundation (A Unifying Approach to GFR Estimation: Recommendations of the NKF-ASK Task Force on Reassessing the Inclusion of Race in Diagnosing Kidney Disease, JASN 2020). The CKD-EPI equation should not be used for patients with unstable renal function and has not been validated in children and those over 70. Current interpretive data was last reviewed 2021. Blood 02/19/2024 2:47 PM CDT 02/19/2024 8:22 PM CDT us Leticia Miller MD LAB BLOOD ORDERABLE S Final Result [facility] [address] [address] Department [place] [address] * Albumin Creatinine Ratio, Urine (02/19/2024 2:47 PM CDT) Albumin Ur 14.5 mg/L Comment: Interpretive Data No reference range established. Current interpretive data was last revised 2018. Creatinine Ur 66.2 mg/dL [facility] Comment: Interpretive Data No reference range established. Current interpretive data was last revised 2018. Albumin Creatinine Ratio, Ur 22 1 - 29 mg/g [facility] [place] Urine 02/19/2024 2:47 PM CDT 02/19/2024 7:53 PM CDT us Leticia Miller MD LAB URINE ORDERABLE S Final Result [facility] [address] [facility] Department [place] [address] * (ABNORMAL) Lipid panel (02/19/2024 2:47 PM CDT) Cholesterol 184 30 - 199 mg/dL Comment: Interpretive Data Ages < or = 19 years Acceptable: <170 mg/dL Borderline high: 170-199 mg/dL High: >or= 200 mg/dL Ages > or = 20 years Desirable: <200 mg/dL Borderline high: 200-239 mg/dL High: >or= 240 mg/dL Literature References: 1. Expert Panel on Integrated Guidelines for Cardiovascular Health and Risk Reduction in Children and Adolescents. Pediatrics 2011;128:S213 2. NCEP Expert Panel. Circulation 2004;110:227 Current Interpretive Data was last revised on 2018. Triglycerides 174(H) <=149 mg/dL [facility] [place] Comment: Interpretive Data Ages < or = 9 years Acceptable: <75 mg/dL Borderline high: 75-99 mg/dL High: >or= 100 mg/dL Ages 10 to 20 years Acceptable: <90 mg/dL Borderline high: 90-129 mg/dL High: >or= 130 mg/dL Ages > or = 20 years Desirable: <150 mg/dL Borderline high: 150-199 mg/dL High: 200-499 mg/dL Very high: >or= 499 mg/dL Literature References: 1. Expert Panel on Integrated Guidelines for Cardiovascular Health and Risk Reduction in Children and Adolescents. Pediatrics 2011;128:S213 2. NCEP Expert Panel. Circulation 2004;110:227 Current Interpretive Data was last revised on 2018. HDL 62 >=40 mg/dL [facility] Comment: Interpretive Data Ages < or = 19 years Acceptable: >45 mg/dL Borderline low: 40-45 mg/dL Low: <40 mg/dL Ages > or = 20 years Desirable: >or= 60 mg/dL Low: <40 mg/dL Literature References: 1. Expert Panel on Integrated Guidelines for Cardiovascular Health and Risk Reduction in Children and Adolescents. Pediatrics 2011;128:S213 2. NCEP Expert Panel. Circulation 2004;110:227 Current Interpretive Data was last revised on 2018. LDL, calculated 87 <=129 mg/dL [facility] Comment: Interpretive Data Ages < or = 19 years Acceptable: <110 mg/dL Borderline high: 110-129 mg/dL High: >or= 130 mg/dL Ages > or = 20 years Optimal: <100 mg/dL Near optimal: 100-129 mg/dL Borderline high: 130-159 mg/dL High: >160 mg/dL Literature References: 1. Expert Panel on Integrated Guidelines for Cardiovascular Health and Risk Reduction in Children and Adolescents. Pediatrics 2011;128:S213 2. NCEP Expert Panel. Circulation 2004;110:227 Current Interpretive Data was last revised on 2018. Non-HDL Cholesterol 122 mg/dL [facility] Comment: Interpretive Data Ages < or = 19 years Acceptable: <120 mg/dL Borderline high: 120-144 mg/dL High: >145 mg/dL Ages > or = 20 years When triglycerides are >200 mg/dL, Non-HDL cholesterol is a secondary target of therapy with treatment goals that are 30 mg/dL greater than the LDL cholesterol target. Literature References: 1. Expert Panel on Integrated Guidelines for Cardiovascular Health and Risk Reduction in Children and Adolescents. Pediatrics 2011;128:S213 2. NCEP Expert Panel. Circulation 2004;110:227 Current Interpretive Data was last revised on 2018. Chol/HDL ratio 3 [facility] Blood 02/19/2024 2:47 PM CDT 02/19/2024 8:00 PM CDT Leticia Miller MD LAB BLOOD ORDERABLE S Final Result [facility] [address] [facility] Department [place] [address] * Diabetic Eye Exam (04/18/2022) Historical Provider HEALTH MAINTENANCE Edited Result - Final * COLONOSCOPY (05/13/2020 2:37 PM TRAINING OFFICER) Anatomical Region Laterality Modality Other Narrative Procedure Note Fred Marc MD - 05/13/2020 2:[address] [facility] Endoscopy Lab Patient Name: Mehdi Lai Procedure Date: 05/13/2020 2:37 PM Date of : 1955 Admit Type: Outpatient Age: 64 Gender: Female Note Status: Finalized Attending MD: Fred Marc M.D. Procedure Date: 05/13/2020 Procedure: Colonoscopy Indications: Chronic diarrhea Providers: Fred Marc M.D., Deloris Vo RN, [facility], Radio Disc Jockey, Anselmo Arevalo M.D. ([facility] Referring MD: Janie Ghotra MD Medicines: Monitored Anesthesia Care Complications: No immediate complications. Estimated Blood Loss: Estimated blood loss: none. Procedure: Pre-Anesthesia Assessment: - Airway Examination: normal oropharyngeal airwayand neck mobility. - Respiratory Examination: clear to auscultation. - ASA Grade Assessment: III - A patient with severe systemic disease. - After reviewing the risks and benefits, thepatient was deemed in satisfactory condition to undergo the procedure. - The risks and benefits of the procedure and the sedation options and risks were discussed with the patient. All questions were answered and informed consent was obtained. After I obtained informed consent, the scope waspassed under direct vision. Throughout the procedure, the patient's blood pressure, pulse, and oxygensaturations were monitored continuously. The scope was passedunder direct vision. The Colonoscope was introducedthrough the anus and advanced to the the cecum, identifiedby the appendiceal orifice, ileocecal valve andpalpation. The colonoscopy was performed with ease. The patient tolerated the procedure well. The quality of thebowel preparation was good. The quality of the bowel preparation was evaluated using the BBPS (BostonBowel Preparation Scale) with scores of: Right Colon = 3 (entire mucosa seen well with no residual staining, small fragments of stool or opaque liquid),Transverse Colon = 3 (entire mucosa seen well with no residual staining, small fragments of stool or opaque liquid) and Left Colon = 3 (entire mucosa seen well with no residual staining, small fragments of stool oropaque liquid). The total BBPS score equals 9. The bowel preparation used was SUPREP. Bowel prep was administered using a split dose. Findings: The perianal and digital rectal examinations were normal. The colon (entire examined portion) appeared normal. Biopsies for histology were taken with a cold forceps from the entire colon for evaluation of microscopic colitis. A few medium-mouthed diverticula were found in the entire colon. The retroflexed view of the distal rectum and anal verge was normaland showed no anal or rectal abnormalities. Impression: - The entire examined colon is normal. Biopsied. - Diverticulosis in the entire examined colon. - The distal rectum and anal verge are normal on retroflexion view. Recommendation: - Discharge patient to home (ambulatory). - Await pathology results. - Repeat colonoscopy in 10 years for surveillance. Procedure Code(s): --- Professional --- 72740, Colonoscopy, flexible; with biopsy, single or multiple Diagnosis Code(s): --- Professional --- K52.9, Noninfective gastroenteritis and colitis, unspecified K57.30, Diverticulosis of large intestine without perforation or abscess without bleeding CPT copyright 2017 [employer]. All rights reserved. The codes documented in this report are preliminary and upon client manager reviewmay be revised to meet current compliance requirements. Electronically signed by Fred Marc MD Fred Marc M.D. 05/13/2020 3:12:17 PM Number of Addenda: 0 Note Initiated On: 05/13/2020 2:37 PM Fred Marc MD ENDOSCOPY PROCEDURES Final Resul t from Last 3 Months or Most Recently Relevant to Health Maintenance [place] [phone] [place] [address] [employer] Care Teams Pencils Washer Relationship Specialty Start Date End Date Sherman Goodwin MD [address] [address] PCP - General Family Medicine 08/06/24 [place] [address] [facility] [address] [address] Consulting Physician Endocrinology 11/24/20 Jenni Leblanc PA [address] [facility] [address] [place] [address] Physician Java Lead Developer 06/20/23
--- OUTSIDE RECORDS SUMMARY | 2024-12-10 17:21 | XMS_ITS | Encounter Summary ---
Author Organization [facility] Health Address [address] [place] [address] Care Team Providers Care Administrative Professional Name Role Phone Unavailable Primary Care Provider Unavailabl e Prior Encounters Date Type Department Care Team Description 07/22/2019 Converted CPS Chart Documents [facility] [address] [place] [phone] <No scans attached> 07/22/2019 Converted 13x Documents [facility] [address] [place] [phone] <No scans attached> Plan of Treatment Not on file Procedures Procedure Name Priority Date/Time Associated Diagnosis Comments OFFICE VISIT FOR OBSERVATION (DURING REGULARLY SCHEDULED HOURS) - NO OTHER SERVICES PERFORMED Routine 05/18/2012 12:00 AM PST ADDITIONAL X-RAY Routine 05/18/2012 12:0 0 AM PST SINGLE X-RAY Routine 05/18/2012 12:00 AM PST 19 CEMENT CROWN Routine 05/14/2012 12:00 AM PST PERIODIC ORAL EVALUATION - ESTABLISHED PATIENT Routine 05/14/2012 12:00 AM PST ORAL HYGIENE INSTRUCTIONS Routine 2011 12:00 AM PST TOPICAL APPLICATION OF FLUORIDE VARNISH Routine 05/14/2012 12:00 AM PST PROPHYLAXIS - ADULT Routine 05/14/2012 1 2:00 AM PST BITEWINGS - FOUR RADIOGRAPHIC IMAGES Routine 05/14/2012 12:00 AM PST ADDITIONAL X-RAY Routine 05/14/2012 12:0 0 AM PST ADDITIONAL X-RAY Routine 05/14/2012 12:0 0 AM PST ADDITIONAL X-RAY Routine 05/14/2012 12:0 0 AM PST ADDITIONAL X-RAY Routine 05/14/2012 12:0 0 AM PST ADDITIONAL X-RAY Routine 05/14/2012 12:0 0 AM PST SINGLE X-RAY Routine 05/14/2012 12:00 AM PST 8 MIFL COMPOSITE FILLING Routine 012 12:00 AM PST OFFICE VISIT FOR OBSERVATION (DURING REGULARLY SCHEDULED HOURS) - NO OTHER SERVICES PERFORMED Routine 04/26/2012 12:00 AM PDT 31 LIMITED ORAL EVALUATION - PROBLEM FOCUSED Routine 04/23/2012 12:00 AM PDT 19 [facility] MADE CROWN POST Routine 04/20/2012 12:00 AM PDT NC X-RAY Routine 04/20/2012 12:00 AM PDT MISSED APPOINTMENT Routine 04/13/2012 12 :00 AM PDT SINGLE X-RAY Routine 03/28/2012 12:00 AM PDT 28 B COMPOSITE FILLING Routine 1 12:00 AM PDT BITEWINGS - TWO RADIOGRAPHIC IMAGES Routine 04/22/2011 12:00 AM PDT OFFICE VISIT FOR OBSERVATION (DURING REGULARLY SCHEDULED HOURS) - NO OTHER SERVICES PERFORMED Routine 04/15/2011 12:00 AM PDT 31 TEMPORARY BRIDGE Routine 04/04/2011 1 2:00 AM PDT 30 TEMPORARY BRIDGE Routine 04/04/2011 1 2:00 AM PDT 29 TEMPORARY BRIDGE Routine 04/04/2011 1 2:00 AM PDT UR PERIODONTAL SCALING AND ROOT PLANING - FOUR OR MORE TEETH PER QUADRANT Routine 04/01/2011 12:00 AM PDT UL PERIODONTAL SCALING AND ROOT PLANING - FOUR OR MORE TEETH PER QUADRANT Routine 04/01/2011 12:00 AM PDT LR PERIODONTAL SCALING AND ROOT PLANING - FOUR OR MORE TEETH PER QUADRANT Routine 04/01/2011 12:00 AM PDT LL PERIODONTAL SCALING AND ROOT PLANING - FOUR OR MORE TEETH PER QUADRANT Routine 04/01/2011 12:00 AM PDT 29 RE-CEMENT OR RE-STARKS FIXED PARTIAL DENTURE Routine 03/30/2011 12:00 AM PDT PERIODIC ORAL EVALUATION - ESTABLISHED PATIENT Routine 03/30/2011 12:00 AM PDT BITEWINGS - FOUR RADIOGRAPHIC IMAGES Routine 03/30/2011 12:00 AM PDT ADDITIONAL X-RAY Routine 03/30/2011 12:0 0 AM PDT ADDITIONAL X-RAY Routine 03/30/2011 12:0 0 AM PDT ADDITIONAL X-RAY Routine 03/30/2011 12:0 0 AM PDT ADDITIONAL X-RAY Routine 03/30/2011 12:0 0 AM PDT ADDITIONAL X-RAY Routine 03/30/2011 12:0 0 AM PDT SINGLE X-RAY Routine 03/30/2011 12:00 AM PDT SINGLE X-RAY Routine 07/08/2009 12:00 AM PST CHLORHEXIDINE Routine 06/30/2009 12:00 AM PST OFFICE VISIT FOR OBSERVATION (DURING REGULARLY SCHEDULED HOURS) - NO OTHER SERVICES PERFORMED Routine 06/30/2009 12:00 AM PST OFFICE VISIT FOR OBSERVATION (DURING REGULARLY SCHEDULED HOURS) - NO OTHER SERVICES PERFORMED Routine 06/30/2009 12:00 AM PST 31 UNSPECIFIED FIXED PROSTHODONTIC PROCEDURE, BY REPORT Routine 06/16/2009 12:00 AM PST 30 UNSPECIFIED FIXED PROSTHODONTIC PROCEDURE, BY REPORT Routine 06/16/2009 12:00 AM PST 29 UNSPECIFIED FIXED PROSTHODONTIC PROCEDURE, BY REPORT Routine 06/16/2009 12:00 AM PST 30 PONTIC - PFM - POST Routine 9 12:00 AM PST 31 RETAINER CROWN - PFM - POST Routine 06/15/2009 12:00 AM PST 29 RETAINER CROWN - PFM - POST Routine 06/15/2009 12:00 AM PST 19 CROWN PFM POST Routine 06/15/2009 12: 00 AM PST 14 CROWN PFM POST Routine 06/15/2009 12: 00 AM PST 3 CROWN PFM POST Routine 06/15/2009 12:0 0 AM PST 31 RETAINER CROWN - PFG - POST Routine 06/15/2009 12:00 AM PST 29 RETAINER CROWN - PFG - POST Routine 06/15/2009 12:00 AM PST 30 PONTIC - PFG - POST Routine 9 12:00 AM PST COMPREHENSIVE ORAL EVALUATION - NEW OR ESTABLISHED PATIENT Routine 06/15/2009 12:00 AM PST ORAL HYGIENE INSTRUCTIONS Routine 2008 12:00 AM PST 14 D ARESTIN Routine 06/15/2009 12:00 AM PST PROPHYLAXIS - ADULT Routine 06/15/2009 1 2:00 AM PST INTRAORAL - COMPREHENSIVE SERIES OF RADIOGRAPHIC IMAGES Routine 06/15/2009 12:00 AM PST INTRAORAL PHOTO Routine 06/15/2009 12:00 AM PST INTRAORAL PHOTO Routine 06/15/2009 12:00 AM PST INTRAORAL PHOTO Routine 06/15/2009 12:00 AM PST INTRAORAL PHOTO Routine 06/15/2009 12:00 AM PST 15 BRIDGETT COMPOSITE FILLING Routine 06/15/20 09 12:00 AM PST 2 LO COMPOSITE FILLING Routine 9 12:00 AM PST Visit Diagnoses Not on file
--- OUTSIDE RECORDS SUMMARY | 2024-12-10 17:21 | XMS_ITS | Referral Summary ---
Author Organization [address] Address [address] [place] [phone] Care Team Providers Care Sr. Director Name Role Phone Leticia Crane MD Unavailable [phone] Jenni Leblanc Unavailable [phone] Sherman Goodwin MD Primary Care Provider Encounters Date Type Department Care Team Description 10/08/2024 Telephone [facility] Diabetes and Endocrinology [address] [place] [phone] Leticia Crane MD [facility] from Last 3 Months Allergies Active Allergy Reactions Criticality Noted Date [...] Rash Medium 11/20/2017 Prochlorperazine Hives High 05/09/2014 Wnhqccc-Toa-Ifg Reductase Inhibitors Muscle pain Medium 09/21/2021 Medications [...] every 8 (eight) hours as needed 09/04/19 22 Active melatonin 2.5 mg tablet,chewable Take by mouth Active losartan (COZAAR) 50 mg tablet Take 1 tablet (50 mg total) by mouth daily 03/18/20 22 Active docosanoL (ABREVA) 10 % cream Active mupirocin (BACTROBAN) 2 % ointment APPLY OINTMENT TOPICALLY TWICE DAILY TO THE AFFECTED AREA(S) 08/08/19 23 Active blood glucose diagnostic (OneTouch Verio test [...] mouth 3 (three) times a day 12/23/19 23 Active ezetimibe (ZETIA) 10 mg tablet Take [...] daily as directed 100 each 1 04/05/20 24 Active insulin lispro (HumaLOG, ADMELOG) 100 unit/mL [...] Date 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 No changes. Acquired trigger [...] (04/30/2020): Added automatically from request for surgery [id number] Osteoarthritis of carpometacarpal (CMC) joint of thumb 02/25/2020 Iron deficiency anemia 06/04/2019 Fracture of zygomaticomaxillary complex 06/28/20 18 Psoriasis 06/22/2018 Diabetic polyneuropathy asso ciated with type 2 diabetes mellitus 11/21/2017 Assessment & Plan (07/11/2023 12:30 PM SHALE PLANER OPERATOR): Keep working on better glycemic control C/w [...] relief Assessment & Plan (09/07/2020 4:37 PM SHALE PLANER OPERATOR): Keep working on better glycemic control C/w gabapentin for symptomatic relief Assessment & Plan (05/18/2020 3:02 PM SHALE PLANER OPERATOR): Keep working on better glycemic control C/w gabapentin for symptomatic relief Assessment & Plan (02/10/2020 1:14 PM CDT): Keep working on better glycemic control C/w gabapentin for symptomatic relief Assessment & Plan (11/04/2019 3:27 PM CDT): Keep working on better glycemic control C/w gabapentin for symptomatic relief Assessment & Plan (08/13/2019 11:59 AM SHALE PLANER OPERATOR): Keep working on better glycemic control C/w gabapentin for symptomatic relief Assessment & Plan (05/06/2019 4:01 PM SHALE PLANER OPERATOR): Keep working on better glycemic control C/w gabapentin for symptomatic relief Assessment & Plan (05/07/2018 2:25 PM SHALE PLANER OPERATOR): Keep working on better glycemic control Bariatric surgery status 11/20/2017 Assessment & Plan (05/06/2019 4:01 PM SHALE PLANER OPERATOR): serum calcium and ionized gallito and vitamin [...] daily Assessment & Plan (07/11/2023 12:30 PM SHALE PLANER OPERATOR): Chronic, stable Patient currently on Synthroid 100 [...] taken. Assessment & Plan (09/05/2022 2:44 PM SHALE PLANER OPERATOR): Clinically and biochemically euthyroid. No medication changes. [...] taken. Assessment & Plan (09/07/2020 4:37 PM SHALE PLANER OPERATOR): - Advised c/w Synthroid 100 mcg oral [...] taken. Assessment & Plan (05/18/2020 3:02 PM SHALE PLANER OPERATOR): - Advised c/w Synthroid 100 mcg oral [...] taken. Assessment & Plan (08/13/2019 11:59 AM SHALE PLANER OPERATOR): - Advised c/w Synthroid 100 mcg oral [...] taken. Assessment & Plan (05/06/2019 4:00 PM SHALE PLANER OPERATOR): - Advised c/w Synthroid 100 mcg oral [...] taken. Assessment & Plan (05/07/2018 2:24 PM SHALE PLANER OPERATOR): - Advised c/w Synthroid 100 mcg oral [...] months Assessment & Plan (07/11/2023 12:31 PM SHALE PLANER OPERATOR): Chronic, uncontrolled , improving but still above [...] scheduled Assessment & Plan (09/05/2022 2:56 PM SHALE PLANER OPERATOR): Chronic stable problem. Continue same medication regimen. [...] months Assessment & Plan (09/07/2020 4:38 PM SHALE PLANER OPERATOR): Chronic, uncontrolled, improving counseled on diet and [...] months Assessment & Plan (05/18/2020 3:01 PM SHALE PLANER OPERATOR): Chronic, uncontrolled, unchanged counseled on diet and [...] months Assessment & Plan (08/13/2019 11:59 AM SHALE PLANER OPERATOR): Diabetes is slightly worsening A1c 7.5 % [...] months Assessment & Plan (05/06/2019 4:00 PM SHALE PLANER OPERATOR): Diabetes is improving A1c 7.3 % Advise [...] weeks Assessment & Plan (05/07/2018 2:23 PM SHALE PLANER OPERATOR): Diabetes is fair controlled , unchanged A1c [...] (04/18/2022): Added automatically from request for surgery [id number] Diabetic autonomic neuropath y associated with type 2 diabetes mellitus 11/21/2017 05/24/2024 Immunizations Immunization Administration Dates Next Due Flucelvax Influenza Quad 02/27/2019,02/26/2018 Influenza, Quad, Adjuvantated, Intramuscular Influenza, Quadrivalent, Spl it, Preservative Free, Intramuscular 02/24/2017,03/04/2016 Influenza, Trivalent, IM (MDV) 04/06/2015 Pneumococcal Polysaccharide PPV23 03/31/2018 Tdap 12/18/2014 ZOSTER Recombinant 05/22/2019,02/27/2019 Social History Tobacco Use Types Packs/Day Years [...] on file Legal Sex Female 10:44 PM SHALE PLANER OPERATOR Gender Identity Not on file Sexual Orientation Not on file Last Filed Vital Signs Vital Sign Reading Time Taken Comments Blood Pressure 130/80 08/12/2024 1:42 PM SHALE PLANER OPERATOR Pulse 88 08/12/2024 1:42 PM SHALE PLANER OPERATOR Temperature 36.7 C (98 F) 05/13/2020 12:47 PM SHALE PLANER OPERATOR Respiratory Rate 17 08/12/2024 1:42 PM SHALE PLANER OPERATOR Oxygen Saturation 97% 04/21/2022 10:57 AM CDT Inhaled Oxygen Concentration - - Weight 54.4 kg (120 lb) 08/12/2024 1:42 PM SHALE PLANER OPERATOR Height 162.6 cm (5' 4) 08/12/2024 1:42 PM SHALE PLANER OPERATOR Body Mass Index 20.6 08/12/2024 1:42 PM SHALE PLANER OPERATOR Plan of Treatment Not on file Procedures Procedure Name Priority Date/Time Associated Diagnosis Comments POCT HEMOGLOBIN A1C Routine 08/12/2024 1 :44 PM SHALE PLANER OPERATOR Type 2 diabetes mellitus with hyperglycemia, without [...] EXAM Routine 04/18/2022 COLONOSCOPY 05/13/2020 2:37 PM SHALE PLANER OPERATOR from Last 3 Months or Most Recently Relevant to Health Maintenance Results * POCT hemoglobin A1c (08/12/2024 1:44 PM SHALE PLANER OPERATOR) Pathologist [facility] Hemoglobin A1C, POC 9.1 4.0 - 5.6 % Blood 08/12/2024 1:44 PM SHALE PLANER OPERATOR Leticia Miller MD POINT OF CARE TEST [...] 2:47 PM CDT 02/19/2024 8:22 PM CDT Leticia Miller MD LAB BLOOD ORDERABLE S Final Result Performing Organization Address [facility] Co de Phone Number [facility] [place] [address] [address] Department [place] [address] * Albumin Creatinine Ratio, Urine (02/19/2024 2:47 PM CDT) Albumin Ur 14.5 mg/L Comment: Interpretive Data No reference range established. Current interpretive data was last revised 2018. Creatinine Ur 66.2 mg/dL [facility] Comment: Interpretive Data No reference range established. Current interpretive data was last revised 2018. Albumin Creatinine Ratio, Ur 22 1 - 29 mg/g [facility] Urine 02/19/2024 2:47 PM CDT 02/19/2024 7:53 PM CDT Leticia Miller MD LAB URINE ORDERABLE S Final Result Performing Organization Address City/[facility]/ZIP Co de Phone Number [facility] [address] [address] Department [place] [employer] [place] [address] * (ABNORMAL) Lipid panel (02/19/2024 2:47 PM [...] on 2018. Triglycerides 174(H) <=149 mg/dL [facility] Comment: Interpretive Data Ages < [...] Pediatrics 2011;128:S213 2. NCEP Expert Panel. Circulation 2003;110:227 Current Interpretive Data was last revised on 2018. HDL 62 >=40 mg/dL [facility] Comment: Interpretive Data Ages < or = 19 years Acceptable: >45 mg/dL Borderline low: 40-45 mg/dL Low: <40 mg/dL Ages > or = 20 years Desirable: >or= 60 mg/dL Low: <40 mg/dL Literature References: 1. Expert Panel on Integrated Guidelines for Cardiovascular Health and Risk Reduction in Children and Adolescents. Pediatrics 2011;128:S213 2. NCEP Expert Panel. Circulation 2003;110:227 Current Interpretive Data was last revised on [...] revised on 2018. Chol/HDL ratio 3 [facility] [place]EL[place] Blood 02/19/2024 2:47 PM CDT 02/19/2024 8:00 PM CDT Leticia Miller MD LAB BLOOD ORDERABLE S Final Result [facility] [address] [address] Department [place] [address] * Diabetic Eye Exam (04/18/2022) Historical Provider [facility] Edited Result - Final * COLONOSCOPY (05/13/2020 2:37 PM SHALE PLANER OPERATOR) Anatomical Region Laterality Modality Other Narrative Procedure Note Fred Marc MD - 05/13/2020 2:37 PM CST - [facility] Endoscopy Lab Patient Name: Mehdi Lai Procedure Date: 05/13/2020 2:37 PM Date of : 1955 Admit Type: Outpatient Age: 64 Gender: Female Note Status: Finalized Attending MD: Fred Marc M.D. Procedure Date: 05/13/2020 Procedure: Colonoscopy Indications: Chronic diarrhea Providers: Fred Marc M.D., Deloris Vo RN, Mery, Ict Customer Support Officer, Anselmo Arevalo M.D. (AnesthesiaStaff) Referring MD: Janie Ghotra MD Medicines: Monitored [...] for surveillance. Procedure Code(s): --- Professional --- 84309, Colonoscopy, flexible; with biopsy, single or multiple Diagnosis Code(s): --- Professional --- K52.9, Noninfective gastroenteritis and colitis, unspecified K57.30, Diverticulosis of large intestine without perforation or abscess without bleeding CPT copyright 2017 [employer]. All rights reserved. The codes documented in this report are preliminary and upon director translational reviewmay be revised to meet current compliance requirements. Electronically signed by Fred Marc MD Fred Marc M.D. 05/13/2020 3:12:17 PM Number of Addenda: 0 Note Initiated On: 05/13/2020 2:37 PM Fred Marc MD ENDOSCOPY PROCEDURES Final Resul t from Last 3 Months or Most Recently Relevant to Health Maintenance Insurance [employer] [place] [id number] [employer] Care Teams Sr. Director Relationship Specialty Start Date End Date Sherman Goodwin MD [address] [facility] [address] [place] [address] PCP - General Family Medicine 08/06/24 [place] [address] [facility] [address] [place] [address] Consulting Physician Endocrinology 11/24/20 Jenni Leblanc PA [address] [facility] [address] [place] [address] Physician Cosmetic Sales 06/20/23
--- OUTSIDE RECORDS SUMMARY | 2024-12-10 17:21 | XMS_ITS | CONTINUITY OF CARE DOCUMENT ---
Author Name karley crandall Address Unknown Organization [facility] Address [address] [place] [address] Phone [phone] Care Team Providers Care Project Asst Name Role Phone Gilberto JOSEPH, Bee Unavailable [phone] Leticia Miller MD Unavailable ALEXIS COSTA MD Unavailable PROBLEMS Condition Status Date Provider Notes UTI active Silvia Lively Hyperlipidemia active NICK DEAL MD Anemia active NICK DEAL MD HTN essential--echo ef 60% 03/2021 active T himanshu Macias MD Diabetes mellitus active NICK DEAL MD Sleep apnea active NICK DEAL MD Asthma active James Sol Hypothyroidism active Bee Macias MD Hx of gastric bypass--2005 active Bee lo MD Raynaud's disease active Bee Macias MD Chest discomfort Stress nucl ear 03/23 - nl perfusion , nl ef , breast attenuation, calcium score 863, 2020 active James Sol Shortness of breath--abnl pe rfusion consis. with breast atten. 03/2021 active Bee Macias MD Toe discoloration--mild athe ro, normal flow 07/2023 active Bee Macias MD Rib pain active James Ahmedzai Frequent falls, balance active James Piña i Lower extremity edema active Bee Villar Palpitations active Bee Macias MD Venous insufficiency, bilateral active Mehdi Macias MD Arthritis active James Sol ENCOUNTERS Date Type Provider Location Encounter Diag nosis - In-person encounter Office Visit Bee Macias MD [facility] Asthma - In-person encounter Office Visit Bee Macias MD [facility] - In-person encounter Office Visit Bee Macias MD [facility] Arthritis - In-person encounter Office Visit Bee Macias MD [facility] Toe discoloration--mild athero, normal flow 07/2023Venous insufficiency, bilateral - In-person encounter Office Visit Bee Macias MD [facility] Palpitations - In-person encounter Office Visit Bee Macias MD [facility] Lower extremity edema - In-person encounter Office Visit Bee Macias MD [facility] - In-person encounter Office Visit Bee Macias MD [facility] Chest discomfort Stress nuclear 03/23 - nl perfusion , nl ef , breast attenuation, calcium score 863, 1Rib painFrequent falls, balance - In-person encounter Office Visit Bee Macias MD [facility] - In-person encounter Office Visit Bee Macias MD [facility] - In-person encounter Office Visit Bee Macias MD [facility] - In-person encounter Office Visit Bee Macias MD [facility] - In-person encounter Office Visit Bee Macias MD [facility] Chest discomfort Stress nuclear 03/23 - nl perfusion , nl ef , breast attenuation, calcium score 863, 1 - In-person encounter Office Visit Bee Macias MD [facility] HTN essential--echo ef 60% hest discomfort Stress nuclear 03/23 - nl perfusion , nl ef , breast attenuation, calcium score 863, 1Shortness of breath--abnl perfusion consis. with breast atten. 03/2021Toe discoloration--mild athero, normal flow 07/2023 - In-person encounter Office Visit Bee Macias MD [facility] HypothyroidismHx of gastric bypass--2006Raynaud's diseaseChest discomfort Stress nuclear 03/23 - nl perfusion , nl ef , breast attenuation, calcium score 863, 1Shortness of breath--abnl perfusion consis. with breast atten. 03/2021Toe discoloration--mild athero, normal flow 07/2023 - In-person encounter Office Visit NICK DEAL MD [facility] - In-person encounter Office Visit NICK DEAL MD [facility] - In-person encounter Office Visit NICK DEAL MD [facility] - In-person encounter Office Visit NICK DEAL MD [facility] - In-person encounter Office Visit NICK DEAL MD [facility] - In-person encounter Office Visit NICK DEAL MD [facility] - In-person encounter Office Visit NICK DEAL MD [facility] - In-person encounter Office Visit NICK DEAL MD [facility] - In-person encounter Office Visit NICK DEAL MD [facility] - In-person encounter Office Visit NICK DEAL MD [facility] - In-person encounter Office Visit NICK DEAL MD [facility] - In-person encounter Office Visit NICK DEAL MD [facility] - In-person encounter Office Visit NICK DEAL MD [facility] - In-person encounter Office Visit NICK DEAL MD [facility] - In-person encounter Office Visit NICK DEAL MD [facility] - In-person encounter Office Visit NICK DEAL MD [facility] - In-person encounter Office Visit NICK DEAL MD [facility] - In-person encounter Office Visit NICK DEAL MD [facility] - In-person encounter Office Visit NICK DEAL MD [facility] - In-person encounter Office Visit NICK DEAL MD [facility] - In-person encounter Office Visit NICK DEAL MD [facility] - In-person encounter Office Visit NICK DEAL MD [facility] - In-person encounter Office Visit NICK DEAL MD [facility] - In-person encounter Office Visit NICK DEAL MD [facility] - In-person encounter Office Visit NICK DEAL MD [facility] - In-person encounter Office Visit NICK DEAL MD [facility] - In-person encounter Office Visit NICK DEAL MD [facility] - In-person encounter Office Visit NICK DEAL MD [facility] - In-person encounter Office Visit NICK DEAL MD [facility] - In-person encounter Office Visit NICK DEAL MD [facility] - In-person encounter Office Visit NICK DEAL MD [facility] - In-person encounter Office Visit NICK DEAL MD [facility] - In-person encounter Office Visit NICK DEAL MD [facility] - In-person encounter Office Visit NICK DEAL MD [facility] - In-person encounter Office Visit NICK DEAL MD [facility] - In-person encounter Office Visit NICK DEAL MD [facility] - In-person encounter Office Visit NICK DEAL MD [facility] - In-person encounter Office Visit NICK DEAL MD [facility] - In-person encounter Office Visit NICK DEAL MD [facility] - In-person encounter Office Visit Armand Clifford [facility] - In-person encounter Office Visit NICK DEAL MD [facility] - In-person encounter Office Visit NICK DEAL MD [facility] - In-person encounter Office Visit Armand Clifford [facility] - In-person encounter Office Visit NICK DEAL MD [facility] - In-person encounter Office Visit NICK DEAL MD [facility] - In-person encounter Office Visit NICK DEAL MD [facility] - In-person encounter Office Visit NICK DEAL MD [facility] - In-person encounter Office Visit NICK DEAL MD [facility] HTN essential--echo ef 60% 1Diabetes mellitusSleep apneaAsthma - In-person encounter Office Visit Armand [facility] - In-person encounter Office Visit Armand [facility] - In-person encounter Office Visit Armand Clifford [facility] VITAL SIGNS Date Observation Value Provider Body Mass Index (Ratio) 21.45 kg/m2 Mehdi Macias MD blood pressure, cuff size regular Von Hoffman blood pressure, diastolic 74 mm[Hg] Von rrjennifer Hoffman blood pressure, systolic 152 mm[Hg] Wayne Hoffman oxygen saturation, oximetry 97 % Karen Hoffman pulse rate 83 /min Karen Hall [facility] weight E&M 125 [lb_av] Karen Hall [facility] height E&M 64 [in_i] Karen Hall [facility] Body Mass Index (Ratio) 20.94 kg/m2 Mehdi Macias MD blood pressure, diastolic 64 mm[Hg] Magdy Hills blood pressure, systolic 139 mm[Hg] Uma Hills oxygen saturation, oximetry 99 % Lizet Hills pulse rate 90 /min Lizet Hills weight E&M 122 [lb_av] Lizet Hills respiratory rate E&M 12 /[facility] [in_i] Lizet Hills blood pressure, cuff size regular An chelly Hills Body Mass Index (Ratio) 22.24 kg/m2 Mehdi Macias MD blood pressure, diastolic 73 mm[Hg] Dave flores Yaron blood pressure, systolic 153 mm[Hg] Tony Victoram respiratory rate E&M 12 /min Param Zurita raham pulse rate 89 /min Param Yaron oxygen saturation, oximetry 100 % Param Yaron weight E&M 129.6 [lb_av] Param Yaron blood pressure, cuff size regular Ky mark Yaron height E&M 64 [in_i] [facility] Yaron Body Mass Index (Ratio) 24.03 kg/m2 Mehdi Macias MD blood pressure, cuff size regular Ke rri Gruenenfelder blood pressure, diastolic 90 mm[Hg] Ke rri Gruenenfelder blood pressure, systolic 162 mm[Hg] Wayne ri Gruenenfelder oxygen saturation, oximetry 97 % Karen Gruenenfelder respiratory rate E&M 12 /min Karen Yudith saenzenenfelder pulse rate 96 /min Karen Gruenenfe lder weight E&M 140 [lb_av] Karen Gruenenfe lder height E&M 64 [in_i] Karen Gruenenfe er Body Mass Index (Ratio) 24.20 kg/m2 Mehdi Macias MD blood pressure, cuff size regular Ja rret blood pressure, diastolic 69 mm[Hg] Ja rret blood pressure, systolic 143 mm[Hg] Jar ret pulse rate 82 /min Khalif respiratory rate E&M 12 /min Khalif oxygen saturation, oximetry 99 % Khalif weight E&M 141 [lb_av] Khalif y height E&M 64 [in_i] Khalif Victor Hugothien y Body Mass Index (Ratio) 24.37 kg/m2 Mehdi Macias MD blood pressure, cuff size regular [facility] blood pressure, diastolic 92 mm[Hg] [facility] blood pressure, systolic 112 mm[Hg] [facility] 94 /min [facility] oxygen saturation, oximetry 99 % [facility] respiratory rate E&M 16 /min [facility] iller weight E&M 142 [lb_av] [facility] height E&M 64 [in_i] [facility] Body Mass Index (Ratio) 24.37 kg/m2 Mehdi Macias MD blood pressure, diastolic 72 mm[Hg] Li nkLog blood pressure, systolic 129 mm[Hg] [facility] blood pressure, cuff size regular [facility] blood pressure, diastolic 72 mm[Hg] [facility] blood pressure, systolic 129 mm[Hg] [facility] pulse rate 83 /min [facility] oxygen saturation, oximetry 98 % [facility] respiratory rate E&M 16 /min [facility] iller weight E&M 142 [lb_av] [facility] height E&M 64 [in_i] [facility] Body Mass Index (Ratio) 24.03 kg/m2 Mehdi Macias MD blood pressure, cuff size regular [facility] blood pressure, diastolic 80 mm[Hg] Ke rri Wiliuenenfeld blood pressure, systolic 136 mm[Hg] [facility] saturation, oximetry 97 % Karen Hoffman respiratory rate E&M 12 /min Karen mitchell pulse rate 93 /min Karen Hall [facility] weight E&M 140 [lb_av] Karen Hall [facility] height E&M 64 [in_i] Karen Hall [facility] Body Mass Index (Ratio) 25.40 kg/m2 Mehdi Macias MD blood pressure, diastolic 74 mm[Hg] Hilda nkLog blood pressure, systolic 156 mm[Hg] Torrie og blood pressure, cuff size regular Nadine painter Jaswant blood pressure, diastolic 74 mm[Hg] Nadine painter Jaswant blood pressure, systolic 156 mm[Hg] Keke adolfo Michaud oxygen saturation, oximetry 99 % Mildred Jaswant respiratory rate E&M 16 /min Mildred Jaswant pulse rate 79 /min Mildred Jaswant weight E&M 148 [lb_av] Mildred Jaswant height E&M 64 [in_i] Mildredmagdy Michaud Body Mass Index (Ratio) 26.09 kg/m2 Mehdi Macias MD blood pressure, diastolic 57 mm[Hg] Sa ra Pierre blood pressure, systolic 129 mm[Hg] Sherie a Pierre oxygen saturation, oximetry 99 % Suki Pierre respiratory rate E&M 18 /min Suki Si ms pulse rate 82 /min Suki Pierre blood pressure, cuff size regular Sa ra Pierre weight E&M 152 [lb_av] Suki Pierre height E&M 64 [in_i] Suki Pierre Body Mass Index (Ratio) 26.26 kg/m2 Mehdi Macias MD respiratory rate E&M 18 /min Binta Dey blood pressure, diastolic 81 mm[Hg] Nadine Dey blood pressure, systolic 169 mm[Hg] Layne Dey pulse rate 81 /min Bennie galeano oxygen saturation, oximetry 97 % Bennie Dey weight E&M 153 [lb_av] Bennie galeano blood pressure, cuff size regular Nadine Dey height E&M 64 [in_i] Bennie galeano Body Mass Index (Ratio) 26.09 kg/m2 Mehdi Macias MD blood pressure, diastolic 80 mm[Hg] Cierra oumouKatymandy Sparrow blood pressure, systolic 144 mm[Hg] Sonja Sparrow oxygen saturation, oximetry 96 % Lisethmandy Sparrow respiratory rate E&M 16 /min Mya Sparrow pulse rate 85 /min Liseth mabry weight E&M 152 [lb_av] Liseth mabry height E&M 64 [in_i] Liseth mabry Body Mass Index (Ratio) 25.40 kg/m2 Mehdi Macias MD blood pressure, diastolic 84 mm[Hg] Hilda nkLoggabriel blood pressure, systolic 147 mm[Hg] Torrie Domingooggabriel blood pressure, diastolic 84 mm[Hg] Isak Phoenix blood pressure, systolic 147 mm[Hg] Alicia Phoenix oxygen saturation, oximetry 97 % Sarah Phoenix pulse rate 82 /min Sarah Phoenix respiratory rate E&M 18 /min Sarah Phoenix height E&M 64 [in_i] Sarah Phoenix weight E&M 148 [lb_av] Sarah Phoenix blood pressure, resting No Andra Sal blood pressure, cuff size regular Rh onda Lizett ALLERGIES Allergy Name Onset Date Reaction Criticality Status ATORVASTATIN High Criticality active ZITHROMAX Low Criticality active VIBRAMYCIN Low Criticality active ERYTHROMYCIN Low Criticality active OXYCODONE Low Criticality active CODEINE Low Criticality active SINEQUAN Low Criticality active KEFLEX Low Criticality active MARCAINE Low Criticality active BETA BLOCKERS Low Criticality active GLUCOPHAGE Low Criticality active COMPAZINE Low Criticality active RESULTS Date Observation Value Provider Reference Range Interpretation Location bacteria, urine microscopy None seen [facility] None seen/Few Crystal Type, Urine Calcium Oxalate [facility] N/A cast type, urinalysis Hyaline casts [facility] N/A hyaline casts, urine Present [facility] None seen Abnormal epithelial cells, urine 0-10 [facility] 0 - 10 RBC, Urine 0-2 /hpf [facility] 0 - 2 WBC urine on microscopy 0-5 /hpf [facility] 0 - 5 urinalysis, microscopic examination See report [facility] nitrate, urine Negative [facility] Negative urobilinogen, urine, semiquantitative (dipstick) 1.0 [facility] 0.2-1.0 bilirubin, urine Negative [facility] Negative hemoglobin, urine, by dipstick Negative [facility] Negative ketones, urine, by test strip Negative [facility] Negative glucose, urine Negative [facility] Negative protein, urine, semiquantitative (dipstick) Negative [facility] Negative/Tra ce leukocyte esterase, urine, by dipstick Negative [facility] Negative appearance, urine Clear [facility] Clear urine color Yellow [facility] Yellow pH, urine, semiquantitative 5.0 [facility] 5.0-7.5 specific gravity, body fluid 1.026 [facility] 1.005-1.030 rheumatoid factor <10.0 IU/mL [facility] 0.0-13.9 hemoglobin A1C, blood, as % of total hemoglobin 7.7 % [facility] 4.8-5.6 High lipoprotein, beta, serum, point, quantitative, calculated 72 mg/dL [facility] 0-99 very low density lipoproteins 31 mg/dL [facility] 5-40 HDL cholesterol, serum 62 mg/dL [facility] >39 triglyceride, serum, random 155 mg/dL [facility] 0-149 High cholesterol, serum 165 mg/dL [facility] 316-132 8260/04/ 14 basophil count, absolute 0.1 x10E3/uL [facility] 0.0-0.2 Eosinophil Absolute Count 0.1 X10E3/UL [facility] 0.0-0.4 monocyte count, blood, automated 0.4 X10E3/UL [facility] 0.1-0.9 lymphocyte count, blood, automated 1.8 X10E3/UL [facility] 0.7-3.1 Absolute Neutrophils 6.2 X10E3/UL [facility] 1.4-7.0 basophils as percent of blood leukocytes 1 % [facility] Not Estab. eosinophils as percent of blood leukocytes 1 % [facility] Not Estab. monocytes as percent of blood leukocytes 5 % [facility] Not Estab. lymphocytes as percent of blood leukocytes 21 % [facility] Not Estab. neutrophils as percent of blood leukocytes 72 % [facility] Not Estab. platelet count 328 X10E3/UL [facility] [id number]/04/ 14 red blood cell distribution width 15.4 % [facility] 12.3-15.4 mean corpuscular hemoglobin concentration, RBC 31.1 G/DL [facility] 31.5-35.7 Low mean corpuscular hemoglobin, RBC 25.2 pg [facility] 26.6-33.0 Low mean corpuscular volume, RBC 81 fL [facility] 79-97 hematocrit, blood 35.1 % [facility] 34.0-46.6 hemoglobin, blood 10.9 g/dL [facility] 11.1-15.9 Low erythrocyte (RBC) count 4.33 X10E6/UL [facility] 3.77-5.28 leukocyte count, blood 8.5 X10E3/UL [facility] 3.4-10.8 alanine aminotransferase (SGPT), serum 11 1/L [facility] 0-32 aspartate aminotransferase (SGOT), serum 18 1/L [facility] 0-40 alkaline phosphatase, serum 84 1/L [facility] 39-117 bilirubin, serum, total 0.3 mg/dL [facility] 0.0-1.2 albumin/globulin ratio, serum 1.6 [facility] 1.2-2.2 globulin, serum 2.5 [facility] 1.5-4.5 albumin, serum 4.1 g/dL [facility] 3.6-4.8 protein, total, serum 6.6 g/dL [facility] 6.0-8.5 calcium, serum 9.6 mg/dL [facility] 8.7-10.3 carbon dioxide, venous blood 25 mmol/L [facility] 18-29 chloride, serum 99 mmol/L [facility] 96-106 potassium, serum 4.8 mmol/L [facility] 3.5-5.2 sodium, serum 141 mmol/L [facility] 171-381 2742/04/ 14 urea nitrogen/creatinine ratio, serum 16 [facility] 12-28 eGFR if 108 mL/min/{1.7 3_m2} [facility] >59 eGFR if not 94 mL/min/{1.7 3_m2} [facility] >59 creatinine, serum 0.68 mg/dL [facility] 0.57-1.00 urea nitrogen, blood 11 mg/dL [facility] 8-27 blood glucose, random 134 mg/dL [facility] 65-99 High thyroid stimulating hormone, serum 0.034 ??IU/ML [facility] 0.270 - 4.200 Low very low density lipoproteins 47.2 mg/dL [facility] 5.0 - 40.0 High LDL/HDL (low-density lipoprotein/high-den sity lipoprotein) ratio 1.1 RATIO [facility] - lipoprotein, beta, serum, point, quantitative, calculated 70.8 (?) [facility] 0.0 - 100.0 HDL cholesterol, serum 65.0 mg/dL [facility] 45.0 - 65.0 cholesterol, serum 183.0 mg/dL [facility] 0.0 - 200.0 triglyceride, serum, fasting 236.0 mg/dL [facility] 0.0 - 150.0 High anion gap, serum 15.8 [facility] - albumin/globulin ratio, serum 1.6 g/dL [facility] 1.1 - 2.5 globulin, serum 2.7 [facility] 2.3 - 3.8 urea nitrogen/creatinine ratio, serum 14.4 [facility] - Estimated Glomerular Filtration Rate (calc) 67.7 (?) [facility] 59.0 - chloride, serum 100.2 mmol/L [facility] 98.0 - 107.0 potassium, serum 5.1 mmol/L [facility] 3.5 - 5.1 sodium, serum 144.0 mmol/L [facility] 136.0 - 145.0 creatinine, serum 0.9 mg/dL [facility] 0.5 - 1.0 carbon dioxide, venous blood 28.0 mmol/L [facility] - 31.0 albumin, serum 4.3 g/dL [facility] 3.5 - 5.2 calcium, serum 10.0 mg/dL [facility] 8.6 - 10.2 aspartate aminotransferase (SGOT), serum 21.0 1/L [facility] 0.0 - 32.0 alkaline phosphatase, serum 103.0 1/L [facility] 40.0 - 130.0 alanine aminotransferase (SGPT), serum 13.0 1/L [facility] 0.0 - 33.0 protein, total, serum 7.0 g/dL [facility] 6.6 - 8.7 bilirubin, serum, total 0.2 mg/dL [facility] 0.0 - 1.2 urea nitrogen, blood 13.0 mg/dL [facility] 8.0 - 23.0 blood glucose, random 89.0 mg/dL [facility] 74.0 - 99.0 red blood cell distribution width, size density 48.6 fL [facility] - immature granulocytes, percentage of total cells, blood 0.3 % [facility] - nucleated red blood cells as percent of blood leukocytes 0.0 % [facility] - red blood cell (erythrocyte) count, per high power field 0.0 10*3/UL [facility] - eosinophils as percent of blood leukocytes 0.7 % [facility] - neutrophils as percent of blood leukocytes 70.2 % [facility] - Absolute Neutrophils 6.6 CELLS/UL [facility] 1.5 - 7.8 basophils as percent of blood leukocytes 0.8 % [facility] - Absolute Basophils 0.1 CELLS/UL [facility] 0.0 - 0.2 monocytes as percent of blood leukocytes 5.5 % [facility] Absolute Monocytes 0.5 CELLS/UL [facility] 0.2 - 1.0 lymphocytes as percent of blood leukocytes 22.5 % [facility] - Absolute Lymphocytes 2.1 CELLS/UL [facility] 0.9 - 3.9 mean platelet volume 10.3 (?) [facility] - platelet count 364.0 THOUSAND/UL [facility] 100.0 - 400.0 mean corpuscular hemoglobin concentration, RBC 29.9 G/DL [facility] 31.0 - 38.0 Low mean corpuscular hemoglobin, RBC 24.4 pg [facility] 25.0 - 35.0 Low mean corpuscular volume, RBC 81.6 fL [facility] 75.0 - 100.0 hematocrit, blood 39.8 % [facility] 35.0 - 55.0 hemoglobin, blood 11.9 g/dL [facility] 11.5 - 16.5 erythrocyte count, whole blood 4.9 MILLION/UL [facility] 3.5 - 5.5 hemoglobin A1C, blood, as % of total hemoglobin 7.8 % [facility] 4.0 - 5.6 High anion gap, serum 14.2 [facility] - albumin/globulin ratio, serum 1.8 g/dL [facility] 1.1 - 2.5 globulin, serum 2.5 [facility] 2.3 - 3.8 urea nitrogen/creatinine ratio, serum 21.4 [facility] - Estimated Glomerular Filtration Rate (calc) 90.4 (?) [facility] 59.0 - chloride, serum 98.8 mmol/L [facility] 98.0 - 107.0 potassium, serum 4.7 mmol/L [facility] 3.5 - 5.1 sodium, serum 142.0 mmol/L [facility] 136.0 - 145.0 creatinine, serum 0.7 mg/dL [facility] 0.5 - 1.0 carbon dioxide, venous blood 29.0 mmol/L [facility] 23.0 - 31.0 albumin, serum 4.4 g/dL [facility] 3.5 - 5.2 calcium, serum 9.7 mg/dL [facility] 8.6 - 10.2 aspartate aminotransferase (SGOT), serum 18.0 1/L [facility] 0.0 - 32.0 alkaline phosphatase, serum 95.0 1/L [facility] 40.0 - 130.0 alanine aminotransferase (SGPT), serum 13.0 1/L [facility] 0.0 - 33.0 protein, total, serum 6.9 g/dL [facility] 6.6 - 8.7 bilirubin, serum, total 0.3 mg/dL [facility] 0.0 - 1.2 urea nitrogen, blood 15.0 mg/dL [facility] 8.0 - 23.0 blood glucose, random 153.0 mg/dL [facility] 74.0 - 99.0 High red blood cell distribution width, size density 45.6 fL [facility] - immature granulocytes, percentage of total cells, blood 0.4 % [facility] nucleated red blood cells as percent of blood leukocytes 0.0 % [facility] red blood cell (erythrocyte) count, per high power field 0.0 10*3/UL [facility] eosinophils as percent of blood leukocytes 0.7 % [facility] neutrophils as percent of blood leukocytes 69.5 % [facility] Absolute Neutrophils 5.3 CELLS/UL [facility] 1.5 - 7.8 basophils as percent of blood leukocytes 0.7 % [facility] - Absolute Basophils 0.1 CELLS/UL [facility] 0.0 - 0.2 monocytes as percent of blood leukocytes 5.5 % [facility] - Absolute Monocytes 0.4 CELLS/UL [facility] 0.2 - 1.0 lymphocytes as percent of blood leukocytes 23.2 % [facility] - Absolute Lymphocytes 1.8 CELLS/UL [facility] 0.9 - 3.9 mean platelet volume 10.6 (?) [facility] - platelet count 364.0 THOUSAND/UL [facility] 100.0 - 400.0 mean corpuscular hemoglobin concentration, RBC 28.9 G/DL [facility] 31.0 - 38.0 Low mean corpuscular hemoglobin, RBC 24.4 pg [facility] 25.0 - 35.0 Low mean corpuscular volume, RBC 84.3 fL [facility] 75.0 - 100.0 hematocrit, blood 38.0 % [facility] 35.0 - 55.0 hemoglobin, blood 11.0 g/dL [facility] 11.5 - 16.5 Low erythrocyte count, whole blood 4.5 MILLION/UL [facility] 3.5 - 5.5 anion gap, serum 13.8 [facility] - albumin/globulin ratio, serum 2.5 g/dL [facility] 1.1 - 2.5 High globulin, serum 2.6 [facility] 2.3 - 3.8 urea nitrogen/creatinine ratio, serum 24.3 [facility] - Estimated Glomerular Filtration Rate (calc) 90.4 (?) [facility] 59.0 - chloride, serum 102.2 mmol/L [facility] 98.0 - 107.0 potassium, serum 5.1 mmol/L [facility] 3.5 - 5.1 sodium, serum 144.0 mmol/L [facility] 136.0 - 145.0 creatinine, serum 0.7 mg/dL [facility] 0.5 - 1.0 carbon dioxide, venous blood 28.0 mmol/L [facility] 23.0 - 31.0 albumin, serum 4.1 g/dL [facility] 3.5 - 5.2 calcium, serum 10.0 mg/dL [facility] 8.6 - 10.2 aspartate aminotransferase (SGOT), serum 19.0 1/L [facility] 0.0 - 32.0 alkaline phosphatase, serum 75.0 1/L [facility] 40.0 - 130.0 alanine aminotransferase (SGPT), serum 12.0 1/L [facility] 0.0 - 33.0 protein, total, serum 6.7 g/dL [facility] 6.6 - 8.7 bilirubin, serum, total 0.3 mg/dL [facility] 0.0 - 1.2 urea nitrogen, blood 17.0 mg/dL [facility] 8.0 - 23.0 blood glucose, random 151.0 mg/dL [facility] 74.0 - 99.0 High red blood cell distribution width, size density 51.0 fL [facility] - immature granulocytes, percentage of total cells, blood 0.3 % [facility] - nucleated red blood cells as percent of blood leukocytes 0.0 % [facility] - red blood cell (erythrocyte) count, per high power field 0.0 10*3/UL [facility] - eosinophils as percent of blood leukocytes 1.0 % [facility] - neutrophils as percent of blood leukocytes 69.7 % [facility] - Absolute Neutrophils 5.0 CELLS/UL [facility] 1.5 - 7.8 basophils as percent of blood leukocytes 0.7 % [facility] - Absolute Basophils 0.1 CELLS/UL [facility] 0.0 - 0.2 monocytes as percent of blood leukocytes 6.2 % [facility] - Absolute Monocytes 0.5 CELLS/UL [facility] 0.2 - 1.0 lymphocytes as percent of blood leukocytes 22.1 % [facility] - Absolute Lymphocytes 1.6 CELLS/UL [facility] 0.9 - 3.9 mean platelet volume 10.2 (?) [facility] - platelet count 345.0 THOUSAND/UL [facility] 100.0 - 400.0 mean corpuscular hemoglobin concentration, RBC 28.2 G/DL [facility] 31.0 - 38.0 Low mean corpuscular hemoglobin, RBC 24.3 pg [facility] 25.0 - 35.0 Low mean corpuscular volume, RBC 86.2 fL [facility] 75.0 - 100.0 hematocrit, blood 39.3 % [facility] 35.0 - 55.0 hemoglobin, blood 11.1 g/dL [facility] 11.5 - 16.5 Low erythrocyte count, whole blood 4.6 MILLION/UL [facility] 3.5 - 5.5 free thyroxine index 9.5 ??g/dL [facility] 4.4 - 11.4 triiodothyronine uptake 1.0 TBI [facility] 0.8 - 1.3 thyroxine, serum, total 9.5 ??G/DL [facility] 4.5 - 11.7 thyroid stimulating hormone, serum 0.050 ??IU/ML [facility] 0.270 - 4.200 Low anion gap, serum 14.4 [facility] - albumin/globulin ratio, serum 2.7 g/dL [facility] 1.1 - 2.5 High globulin, serum 2.9 [facility] 2.3 - 3.8 urea nitrogen/creatinine ratio, serum 20.0 [facility] - Estimated Glomerular Filtration Rate (calc) 108.0 (?) [facility] 59.0 - chloride, serum 101.6 mmol/L [facility] 98.0 - 107.0 potassium, serum 5.0 mmol/L [facility] 3.5 - 5.1 sodium, serum 143.0 mmol/L [facility] 136.0 - 145.0 creatinine, serum 0.6 mg/dL [facility] 0.5 - 1.0 carbon dioxide, venous blood 27.0 mmol/L [facility] 23.0 - 31.0 albumin, serum 4.4 g/dL [facility] 3.5 - 5.2 calcium, serum 10.4 [facility] High aspartate aminotransferase (SGOT), serum 18.0 1/L [facility] 0.0 - 32.0 alkaline phosphatase, serum 81.0 1/L [facility] 40.0 - 130.0 alanine aminotransferase (SGPT), serum 13.0 1/L [facility] 0.0 - 33.0 protein, total, serum 7.3 g/dL [facility] 6.6 - 8.7 bilirubin, serum, total 0.2 mg/dL [facility] 0.0 - 1.2 urea nitrogen, blood 12.0 mg/dL [facility] 8.0 - 23.0 blood glucose, random 78.0 mg/dL [facility] 74.0 - 99.0 red blood cell distribution width, size density 47.8 fL [facility] immature granulocytes, percentage of total cells, blood 0.3 % [facility] nucleated red blood cells as percent of blood leukocytes 0.0 % [facility] red blood cell (erythrocyte) count, per high power field 0.0 10*3/UL [facility] eosinophils as percent of blood leukocytes 1.0 % [facility] neutrophils as percent of blood leukocytes 68.1 % [facility] Absolute Neutrophils 6.6 CELLS/UL [facility] 1.5 - 7.8 basophils as percent of blood leukocytes 0.5 % [facility] Absolute Basophils 0.1 CELLS/UL [facility] 0.0 - 0.2 monocytes as percent of blood leukocytes 6.0 % [facility] - Absolute Monocytes 0.6 CELLS/UL [facility] 0.2 - 1.0 lymphocytes as percent of blood leukocytes 24.1 % [facility] - Absolute Lymphocytes 2.3 CELLS/UL [facility] 0.9 - 3.9 mean platelet volume 10.4 (?) [facility] - platelet count 326.0 THOUSAND/UL [facility] 100.0 - 400.0 mean corpuscular hemoglobin concentration, RBC 29.3 G/DL [facility] 31.0 - 38.0 Low mean corpuscular hemoglobin, RBC 24.0 pg [facility] 25.0 - 35.0 Low mean corpuscular volume, RBC 82.0 fL [facility] 75.0 - 100.0 hematocrit, blood 40.0 % [facility] 35.0 - 55.0 hemoglobin, blood 11.7 g/dL [facility] 11.5 - 16.5 erythrocyte count, whole blood 4.9 MILLION/UL [facility] 3.5 - 5.5 folate, serum 20.0 NG/MLM [facility] 5.6 - 45.8 vitamin b12, serum 1066.0 pg/mL [facility] 211.0 - 946.0 High thyroid stimulating hormone, serum 0.039 ??IU/ML [facility] 0.270 - 4.200 Low red blood cell distribution width, size density 51.6 fL [facility] - immature granulocytes, percentage of total cells, blood 0.2 % [facility] - nucleated red blood cells as percent of blood leukocytes 0.0 % [facility] - red blood cell (erythrocyte) count, per high power field 0.0 10*3/UL [facility] - eosinophils as percent of blood leukocytes 0.8 % [facility] - neutrophils as percent of blood leukocytes 68.8 % [facility] - Absolute Neutrophils 6.0 CELLS/UL [facility] 1.5 - 7.8 basophils as percent of blood leukocytes 0.8 % [facility] - Absolute Basophils 0.1 CELLS/UL [facility] 0.0 - 0.2 monocytes as percent of blood leukocytes 5.7 % [facility] - Absolute Monocytes 0.5 CELLS/UL [facility] 0.2 - 1.0 lymphocytes as percent of blood leukocytes 23.7 % [facility] - Absolute Lymphocytes 2.1 CELLS/UL [facility] 0.9 - 3.9 mean platelet volume 10.6 (?) [facility] - platelet count 390.0 THOUSAND/UL [facility] 100.0 - 400.0 mean corpuscular hemoglobin concentration, RBC 28.3 G/DL [facility] 31.0 - 38.0 Low mean corpuscular hemoglobin, RBC 23.3 pg [facility] - 35.0 Low mean corpuscular volume, RBC 82.3 fL [facility] 75.0 - 100.0 hematocrit, blood 38.1 % [facility] 35.0 - 55.0 hemoglobin, blood 10.8 g/dL [facility] 11.5 - 16.5 Low erythrocyte count, whole blood 4.6 MILLION/UL [facility] 3.5 - 5.5 iron, serum 95.0 ug/dL [facility] 25.0 - 156.0 hemoglobin A1C, blood, as % of total hemoglobin 6.6 % [facility] 4.0 - 6.0 High red blood cell distribution width, size density 54.5 fL [facility] - immature granulocytes, percentage of total cells, blood 0.4 % [facility] - nucleated red blood cells as percent of blood leukocytes 0.0 % [facility] - red blood cell (erythrocyte) count, per high power field 0.0 10*3/UL [facility] - eosinophils as percent of blood leukocytes 1.1 % [facility] - neutrophils as percent of blood leukocytes 70.2 % [facility] Absolute Neutrophils 6.0 CELLS/UL [facility] 1.5 - 7.8 basophils as percent of blood leukocytes 0.9 % [facility] - Absolute Basophils 0.1 CELLS/UL [facility] 0.0 - 0.2 monocytes as percent of blood leukocytes 6.5 % [facility] - Absolute Monocytes 0.6 CELLS/UL [facility] 0.2 - 1.0 lymphocytes as percent of blood leukocytes 20.9 % [facility] - Absolute Lymphocytes 1.8 CELLS/UL [facility] 0.9 - 3.9 mean platelet volume 10.7 (?) [facility] - platelet count 371.0 THOUSAND/UL [facility] 100.0 - 400.0 mean corpuscular hemoglobin concentration, RBC 26.9 G/DL [facility] 31.0 - 38.0 Low mean corpuscular hemoglobin, RBC 21.6 pg [facility] 25.0 - 35.0 Low mean corpuscular volume, RBC 80.1 fL [facility] 75.0 - 100.0 hematocrit, blood 33.8 % [facility] 35.0 - 55.0 Low hemoglobin, blood 9.1 g/dL [facility] 11.5 - 16.5 Low erythrocyte count, whole blood 4.2 MILLION/UL [facility] 3.5 - 5.5 vitamin b12, serum 1403.0 pg/mL [facility] 211.0 - 946.0 High folate, serum 20.0 NG/MLM [facility] 5.6 - 45.8 iron binding capacity, unsaturated 357.0 ??G/DL [facility] 112.0 - 347.0 High ferritin, serum 6.6 ng/mL [facility] 13.0 - 150.0 Low iron binding capacity, total 383.0 (?) [facility] - iron, serum 26.0 ug/dL [facility] 25.0 - 156.0 thyroid stimulating hormone, serum 0.164 ?IU/ML [facility] 0.270 - 4.200 Low very low density lipoproteins 25.6 mg/dL [facility] 5.0 - 40.0 LDL/HDL (low-density lipoprotein/high-den sity lipoprotein) ratio 1.1 RATIO [facility] - lipoprotein, beta, serum, point, quantitative, calculated 74.4 (?) [facility] 0.0 - 100.0 HDL cholesterol, serum 68.0 mg/dL [facility] 45.0 - 65.0 High cholesterol, serum 168.0 mg/dL [facility] 0.0 - 200.0 triglyceride, serum, fasting 128.0 mg/dL [facility] 0.0 - 150.0 anion gap, serum 10.8 [facility] - albumin/globulin ratio, serum 2.5 g/dL [facility] 1.1 - 2.5 High globulin, serum 2.6 [facility] 2.3 - 3.8 urea nitrogen/creatinine ratio, serum 14.3 [facility] - Estimated Glomerular Filtration Rate (calc) 90.7 (?) [facility] 59.0 - chloride, serum 105.2 mmol/L [facility] 98.0 - 107.0 potassium, serum 5.3 mmol/L [facility] 3.5 - 5.1 High sodium, serum 144.0 mmol/L [facility] 136.0 - 145.0 creatinine, serum 0.7 mg/dL [facility] 0.5 - 0.9 carbon dioxide, venous blood 28.0 mmol/L [facility] 23.0 - 31.0 albumin, serum 4.1 g/dL [facility] 3.5 - 5.2 calcium, serum 9.6 mg/dL [facility] 8.6 - 10.2 aspartate aminotransferase (SGOT), serum 17.0 1/L [facility] 0.0 - 32.0 alkaline phosphatase, serum 86.0 1/L [facility] 40.0 - 130.0 alanine aminotransferase (SGPT), serum 13.0 1/L [facility] 0.0 - 33.0 protein, total, serum 6.7 g/dL [facility] 6.6 - 8.7 bilirubin, serum, total 0.3 mg/dL [facility] 0.0 - 1.2 urea nitrogen, blood 10.0 mg/dL [facility] 6.0 - 20.0 blood glucose, random 141.0 mg/dL [facility] 74.0 - 99.0 High vitamin b12, serum 1259.0 pg/mL [facility] 211.0 - 946.0 High folate, serum 18.7 NG/MLM [facility] 5.6 - 45.8 hemoglobin A1C, blood, as % of total hemoglobin 7.6 % [facility] 4.0 - 6.0 High thyroid stimulating hormone, serum 0.097 ?IU/ML [facility] 0.270 - 4.200 Low very low density lipoproteins 34.8 mg/dL [facility] 5.0 - 40.0 LDL/HDL (low-density lipoprotein/high-den sity lipoprotein) ratio 1.2 RATIO [facility] - lipoprotein, beta, serum, point, quantitative, calculated 87.2 (?) [facility] - HDL cholesterol, serum 70.0 mg/dL [facility] 45.0 - 65.0 High cholesterol, serum 192.0 mg/dL [facility] 0.0 - 200.0 triglyceride, serum, fasting 174.0 mg/dL [facility] 0.0 - 150.0 High anion gap, serum 16.0 [facility] - albumin/globulin ratio, serum 3.2 g/dL [facility] 1.1 - 2.5 High globulin, serum 2.6 [facility] 2.3 - 3.8 urea nitrogen/creatinine ratio, serum 18.3 [facility] - Estimated Glomerular Filtration Rate (calc) 108.4 (?) [facility] 59.0 - chloride, serum 102.0 mmol/L [facility] 98.0 - 107.0 potassium, serum 5.0 mmol/L [facility] 3.5 - 5.1 sodium, serum 145.0 mmol/L [facility] 136.0 - 145.0 creatinine, serum 0.6 mg/dL [facility] 0.5 - 0.9 carbon dioxide, venous blood 27.0 mmol/L [facility] 23.0 - 31.0 albumin, serum 4.9 g/dL [facility] 3.5 - 5.2 calcium, serum 10.5 mg/dL [facility] 8.6 - 10.2 High aspartate aminotransferase (SGOT), serum 19.0 1/L [facility] 0.0 - 32.0 alkaline phosphatase, serum 88.0 1/L [facility] 40.0 - 130.0 alanine aminotransferase (SGPT), serum 13.0 1/L [facility] 0.0 - 33.0 protein, total, serum 7.5 g/dL [facility] 6.6 - 8.7 bilirubin, serum, total 0.2 mg/dL [facility] 0.0 - 1.2 urea nitrogen, blood 11.0 mg/dL [facility] 8.0 - 23.0 blood glucose, random 74.0 mg/dL [facility] 74.0 - 99.0 red blood cell distribution width, size density 42.9 fL [facility] - mean platelet volume 10.8 (?) [facility] - platelet count 399.0 THOUSAND/UL [facility] 100.0 - 400.0 mean corpuscular hemoglobin concentration, RBC 28.1 G/DL [facility] 31.0 - 38.0 Low mean corpuscular hemoglobin, RBC 22.7 pg [facility] 25.0 - 35.0 Low mean corpuscular volume, RBC 80.7 fL [facility] 75.0 - 100.0 hematocrit, blood 35.2 % [facility] 35.0 - 55.0 hemoglobin, blood 9.9 g/dL [facility] 11.5 - 16.5 Low erythrocyte count, whole blood 4.4 MILLION/UL [facility] 3.5 - 5.5 rheumatoid factor 15.0 [iU]/mL [facility] 0.0-20 Normal C-reactive protein, serum 0.04 mg/dL [facility] Units converted. See lab report for original value. Normal erythrocyte sedimentation rate . mm/Hr [facility] 0-20 Normal HISTORY OF MEDICATION USE Medication Status Instructions Dates Provider Indications Com ments prednisone 10 mg tablet active Take 1 tablet by mouth once a day James Ahmedzai ezetimibe 10 mg tablet active Take 1 tablet by [facility] los[facility] 50 mg tablet active Take 1 tablet by mouth once daily Bee Macias MD Januvia 100 mg tablet active [facility] dextroamphetami ne-amphetamine 20 mg capsule,extende d release 24hr active [facility] Synthroid 100 mcg tablet active [facility] mg [facility] active [facility] bupropion HCl 100 mg tablet sustained-relea se 12 hr completed - [facility] clonaz[facility]am 1 mg tablet active [facility] metformin 500 mg tablet active twice daily [facility] losartan 50 mg tablet completed TAKE ONE TABLET BY MOUTH ONCE DAILY - Karen Hoffman Farxiga 10 mg tablet completed Take 1 tablet once a day - Honey Barrett Wellbutrin XL 150 mg tablet extended release 24 hr completed TAKE ONE TABLET BY MOUTH ONCE DAILY - [facility] GLUCOTROL 5 MG ORAL TABLET active 1 tablet twice a day Liseth Sparrow Nexium 40 mg capsule,delayed release(DR/EC) active 1 tablet once a day Liseth Sparrow VOLTAREN 1 % TRANSDERMAL GEL completed APPLY LOCALLY TWICE DAILY - NICK DEAL MD Synthroid 125 mcg tablet completed 1 tablet once a day - James Sol Cytomel 5 mcg tablet active 1 tablet twice a day Liseth Sparrow Adderall XR 5 mg capsule,extende d release 24hr active 1 capsule once a day Liseth Sparrow Janumet 50-1,000 mg tablet completed 1 tablet twice a day - Honey Barrett Zoloft 100 mg tablet active 1.5 tablet every night 200mg Suki Pierre CALCIUM CITRATE + TABLET active 2 tablet once a day Liseth Sparrow STRESS 500 B-COMPLEX ORAL TABLET active 1 tablet once a day Liseth Sparrow CENTRUM ORAL TABLET active 2 tablet once a day Liseth Sparrow Ambien 10 mg tablet completed 1 tablet every night as needed - Honey Barrett hydrocodone-emigdio taminophen 5-325 mg tablet active 1 tablet twice a day as needed Liseth Sparrow SOCIAL HISTORY Date Observation Value Provider smoking, year quit 1990 [facility] cigarette use yes James Piñajennifer smoking status Former smoker James Piña jennifer smoking, year quit 1990 [facility] cigarette use yes James Piñajennifer smoking status Former smoker James Piña i smoking, year quit 1990 [facility] cigarette use yes James Piñajennifer smoking status Former smoker James Piña i smoking, year quit 1990 [facility] cigarette use yes James Piñajennifer smoking status Former smoker James Piña jennifer smoking, year quit 1990 Bee lo MD cigarette use yes Bee Villar smoking status Former smoker Bee Macias MD smoking, year quit 1990 Michelle garcia cigarette use yes Michelle Garcia smoking status Former smoker Michelle Garcia social history reviewed E&M revi ewed - no changes required James Sol social history reviewed E&M revi ewed - no changes required James Sol social history reviewed E&M revi ewed - no changes required James Sol social history reviewed E&M revi ewed - no changes required Honey Barrett social history reviewed E&M revi ewed - no changes required Bee Macias MD social history reviewed E&M revi ewed - no changes required James Sol social history reviewed E&M revi ewed - no changes required Sowmya Gibbs cigarette use yes Liseth mccormick smoking status Former smoker Liseth Humphrey social history E&M Smoking Histo ry: Naomie juan is a former smoker. James Sol social history reviewed E&M revi ewed - no changes required James Sol social history E&M S moking History: Naomie juan is a former smoker. James Sol social history reviewed E&M revi ewed - no changes required James Sol cigarette use yes Sarah Phoenix smoking status Former smoker Sarah Phoenix INSURANCE PROVIDERS Payer name Policy type / Coverage type [place] democrat ID AARP MEDICARE ADVANTAGE ([facility] COMPLETE PPO) Other [id number] ADVANCE DIRECTIVES Name Date DISCUSSED - NO DECISION MADE TREATMENT PLAN Date Name Performer [id number],S, James Piña i [id number],S, James medza i [id number],S, James Ahmedza i [id number],S, James medza i [id number],S, James medza i [id number],S, James medza i [id number],S, James Ahmedza i [id number],S, James Ahmedza i [id number],S, James Ahmedza i [id number],S, James medza i [id number],S, James medza i [id number],S, James medza i [id number],S, Honey Robles obsmeyer [id number],S, Honey Robels obsmeyer [id number],B, Honey Robles obsmeyer [id number],S, Honey Robles obsmeyer [id number],S, James medza i [id number],S, James Ahmedza i [id number],S, James Ahmedza i [id number],S, James Ahmedza i [id number],S, James Ahmedza i [id number],B, Sowmya Gibbs [id number],W, Sowmya Gibbs [id number],S, Bee Macias MD [id number],B, Bee Macias MD [id number],B, Bee Macias MD [id number],S, Bee Macias MD [id number],B, Bee Macias MD [id number],S, James Piña i [id number],S, James Piña i [id number],S, James Piña i [id number],S, James Piña i Cardiology:This visi t has been a part of the consistent, comprehensive, and ongoing management of the chronic medical condition(s) listed above for the patient. Her updated medication list for this problem includes: Losartan 50 Mg Tablet (Losartan) ..... Take 1 tablet by mouth once daily Bee Macias MD Cardiology:This visi t has been a part of the consistent, comprehensive, and ongoing management of the chronic medical condition(s) listed above for the patient. BP today: 153/73 P rior BP: 162/90 (09/11/2023) Labs Reviewed: C reat: 0.68 (10/14/2017) C hol: 165 (10/14/2017) HDL: 62 (10/14/2017) LDL: 72 (10/14/2017) T (10/14/2017) Her updated medication list for this problem includes: Losartan 50 Mg Tablet (Losartan) ..... Take 1 tablet by mouth once daily Bee Macias MD Cardiology James [facility]iology: H er updated medication list for this problem includes: Metformin 500 Mg Tablet (Metformin) ..... Twice daily Losartan 50 Mg Tablet (Losartan) ..... Take 1 tablet by mouth once daily Januvia 100 Mg Tablet (Sitagliptin) Glipizide 10 Mg Tablet (Glipizide) [facility] James [facility] Cardiology: B P today: 153/73 P rior BP: 162/90 (09/11/2023) Labs Reviewed: C reat: 0.68 (10/14/2017) C hol: 165 (10/14/2017) HDL: 62 (10/14/2017) LDL: 72 (10/14/2017) T (10/14/2017) Her updated medication list for this problem includes: Losartan 50 Mg Tablet (Losartan) ..... Take 1 tablet by mouth once daily James Ahtanya Cardiology: H er updated medication list for this problem includes: Losartan 50 Mg Tablet (Losartan) ..... Take 1 tablet by mouth once daily James uziel Cardiology James uziel Cardiology James uziel Cardiology James tanya Cardiology:Monitor y our BP at home, goal BP is <135/85 BP today: 162/90 P rior BP: 143/69 (07/31/2023) Labs Reviewed: C reat: 0.68 (10/14/2017) C hol: 165 (10/14/2017) HDL: 62 (10/14/2017) LDL: 72 (10/14/2017) T (10/14/2017) Her updated medication list for this problem includes: Losartan 50 Mg Tablet (Losartan) ..... Take 1 tablet by mouth once daily [facility] James uziel Cardiology:please continue to we ar compression socks James Sol Telehealth Bee Macias MD Telehealth Bee Macias MD Telehealth Bee Macias MD Cardiology [facility]: H er updated medication list for this problem includes: Losartan 50 Mg Tablet (Losartan) ..... Take 1 tablet by mouth once daily Januvia 100 Mg Tablet (Sitagliptin) Glipizide 10 Mg Tablet (Glipizide) Metformin 1,000 Mg Tablet (Metformin) [facility] Cardiology: H er updated medication list for this problem includes: Ezetimibe 10 Mg Tablet (Ezetimibe) ..... Take 1 tablet by mouth once a day [facility] Cardiology [facility] Cardiology [facility] Cardiology [facility] Cardiology: B P today: 143/69 P rior BP: 112/92 (07/19/2023) Labs Reviewed: C reat: 0.68 (10/14/2017) C hol: 165 (10/14/2017) HDL: 62 (10/14/2017) LDL: 72 (10/14/2017) T (10/14/2017) Her updated medication list for this problem includes: Losartan 50 Mg Tablet (Losartan) ..... Take 1 tablet by mouth once daily [facility] Cardiology [facility] Cardiology: H er updated medication list for this problem includes: Losartan 50 Mg Tablet (Losartan) ..... Take 1 tablet by mouth once daily Januvia 100 Mg Tablet (Sitagliptin) Glipizide 10 Mg Tablet (Glipizide) Metformin 1,000 Mg Tablet (Metformin) [facility] Cardiology: H er updated medication list for this problem includes: Ezetimibe 10 Mg Tablet (Ezetimibe) ..... Take 1 tablet by mouth once a day [facility] Cardiology [facility] Cardiology: H er updated medication list for this problem includes: Synthroid 100 Mcg Tablet (Levothyroxine) Cytomel 5 Mcg Tablet (Liothyronine) ..... 1 tablet twice a day [facility] Cardiology [facility] Cardiology: H er updated medication list for this problem includes: Losartan 50 Mg Tablet (Losartan) ..... Take 1 tablet by mouth once daily [facility] Cardiology Jamse Ahmedzai Cardiology James Ahmedzai Cardiology James Ahmedzai Cardiology James Ahmedzai Cardiology James Ahmedzai Cardiology James Ahmedzai Cardiology James Ahmedzai Cardiology James Ahmedzai Cardiology James Ahmedzai Cardiology James Ahmedzai Cardiology James Ahmedzai Cardiology James Ahmedzai Cardiology James Ahmedzai Cardiology Honey [facility] Cardiology Honey [facility] Card[facility] Honey [facility] Card[facility] Honey [facility] Card[facility] James Ahmedzai Cardiology James Ahmedzai Cardiology James Ahmedzai Cardiology James Ahmedzai Cardiology James Ahmedzai Cardiology Sowmya Gibbs Cardiology Sowmya Gibbs Cardiology Bee Macias MD Cardiology Bee Macias MD Cardiology Bee Macias MD Cardiology Bee Macias MD Cardiology Bee Macias MD Cardiology James Ahmedzai Cardiology James Ahmedzai Cardiology James Ahmedzai Cardiology James Ahmedzai Date Name CBC (INCLUDES DIFF/P LT) HEMOGLOBIN A1c LIPID PANEL COMPREHENSIVE METABO LIC PANEL, W/EGFR Monitor - Telemetry (Mobile Cardiac) Arterial Duplex Bi-L ower EX Venous Doppler Bilat eral LE - Reflux X-Ray, Chest w/Ribs CT, Coronary Calcium Score Arterial Duplex Bi-L ower EX Stress Regadenoson Complete Echo URINALYSIS, COMPLETE W/REFLEX TO CULTURE RHEUMATOID ARTHRITIS DIAGNOSTIC PANEL HEMOGLOBIN A1c TSH, 3RD GENERATION W/REFLEX TO FT4 LIPID PANEL COMPREHENSIVE METABO LIC PANEL, W/EGFR CBC (INCLUDES DIFF/P LT) C-REACTIVE PROTEIN SED RATE BY MODIFIED WESTERGREN URIC ACID RHEUMATOID FACTOR RONDA HEMOGLOBIN A1c TSH, 3RD GENERATION W/REFLEX TO FT4 LIPID PANEL COMPREHENSIVE METABO LIC PANEL, W/EGFR CBC (INCLUDES DIFF/P LT) HEMOGLOBIN A1c TSH, 3RD GENERATION W/REFLEX TO FT4 LIPID PANEL COMPREHENSIVE METABO LIC PANEL W/EGFR CBC (INCLUDES DIFF/P LT) COMPREHENSIVE METABO LIC PANEL W/EGFR CBC (INCLUDES DIFF/P LT) COMPREHENSIVE METABO LIC PANEL W/EGFR CBC (INCLUDES DIFF/P LT) CBC (INCLUDES DIFF/P LT) THYROID PANEL WITH T SH, 3RD GENERATION COMPREHENSIVE METABO LIC PANEL W/EGFR T-4, FREE TSH, 3RD GENERATION Iron & TIBC VITAMIN B12/FOLATE, SERUM PANEL HEMOGLOBIN A1c CBC (INCLUDES DIFF/P LT) VITAMIN B12/FOLATE, SERUM PANEL IRON AND TOTAL IRON BINDING CAPACITY FERRITIN TSH, 3RD GENERATION W/REFLEX TO FT4 LIPID PANEL COMPREHENSIVE METABO LIC PANEL W/EGFR CBC (INCLUDES DIFF/P LT) VITAMIN B12 FOLATE, SERUM HEMOGLOBIN A1c CULTURE, AEROBIC AND ANAEROBIC W/GRAM STAIN TSH, 3RD GENERATION W/REFLEX TO FT4 LIPID PANEL COMPREHENSIVE METABO LIC PANEL W/EGFR CBC (H/H, RBC, INDIC ES, WBC, PLT) HISTORY OF PROCEDURES Procedure Date Procedure Name Provider Procedure Notes S tatus Complex e/m visit add on Bee Macias MD completed Complex e/m visit add on Bee Macias MD completed Complex e/m visit add on Bee Macias MD completed CT- Coronary CA score Bee Macias MD completed EKG Bee Macias MD completed Stress EKG NICK DEAL MD completed Cardiolite, 2 units NICK DEAL MD completed SPECT Images Koko Taylor MD compl eted
--- OUTSIDE RECORDS SUMMARY | 2024-12-10 17:21 | XMS_ITS | Clinical Summary ---
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 Name Role Phone Janie Ghotra MD Primary Care Provider [phone] Allergies Active Allergy Reactions Criticality Noted Date Comments Azithromycin Rash Medium 11/20/2017 Beta-Blockers (Beta-Adrenergic Blocking Agts) Other (See Comments),Shortnes s of Breath/Wheezing High 12/12/2018 Bupivacaine Swelling Low 12/12/2018 Bupivacaine-Epinephrine Swelling Medium 11/20/2017 Cephalexin Rash Medium 11/20/2017 Codeine Rash Medium 11/20/2017 Doxycycline Rash Medium 11/20/2017 Erythromycin Rash Medium 11/20/2017 Metformin Other (See Comments) 12/12/2018 Acidosis Nsaids (Non-Steroidal Anti-Inflammatory Drug) Other (See Comments) 12/12/2018 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 Acti ve liothyronine (CYTOMEL) 5 mcg Tablet Take 5 mcg by mouth daily. Active amphetamine-dextr oamphetamine (ADDERALL XR) 20 mg Extended Release 24 hour capsule Take 20 mg by mouth daily methods specialist. Acti ve metFORMIN (GLUCOPHAGE) 1,000 mg tablet Take 500 mg by mouth 2 times daily with meals. Active sitaGLIPtin (JANUVIA) 100 mg Tablet Take 100 mg by mouth daily with breakfast. Act chelo esomeprazole (NexIUM) 40 mg Capsule, Delayed Release(E.C.) Take 40 mg by mouth daily before breakfast. Active sertraline (ZOLOFT) 100 mg tabletIndications :pt taking 1.5 tablets nightly Take 100 mg by mouth daily. Active cetirizine (ZyrTEC) 10 mg tablet Take 10 mg by mouth daily. Active montelukast (SINGULAIR) 10 mg tablet Take 10 mg by mouth daily at bedtime. Active fluticasone propionate (FLONASE) 50 mcg/spray [place], Suspension nasal inhaler Administer 2 Sprays in each nostril daily. Active clonazePAM (KlonoPIN) 1 mg tabletIndications :pt can take 1 or 2 daily Take 1 mg by mouth 2 times daily. Active gabapentin (NEURONTIN) 100 mg capsuleIndication s:pt taking 1-3 tablets a day Take 100 mg by mouth 3 times daily. Active iron polysaccharide complex (FERREX 150 ORAL) Take 150 mg by mouth 2 times daily. Active B-complex + vitamin C (SUPER B-C) Tablet Take 1 Tablet by mouth daily. Active folic acid/multivit-min /lutein (CENTRUM SILVER ORAL) Take by mouth. Ac tive HYDROcodone-aceta minophen (NORCO) 5-325 mg tablet Take 1 Tablet by mouth every 4 hours as needed for Pain, Moderate. Active valACYclovir (VALTREX) 1 gram tablet valacyclovir 1 gram tablet Active sulfamethoxazole- trimethoprim (BACTRIM DS) 800-160 mg tablet TK 1 T PO Q 12 H 0 019 Active sitaGLIPtin-metFO RMIN (JANUMET) 50-1,000 mg tablet Take 1,000 mg by mouth every 12 hours. Patient takes metformin separate than the janumet. Active predniSONE (DELTASONE) 10 mg tablet 0 019 Active triamcinolone acetonide (KENALOG) 10 mg/mL Suspension Kenalog 10 mg/mL suspension for injection In office injection administered by the provider Active nystatin (MYCOSTATIN) 100,000 unit/mL suspension nystatin 100,000 unit/mL oral suspension Active mupirocin (BACTROBAN) 2 % Ointment APPLY A SMALL AMOUNT OF OINTMENT TOPICALLY TWICE DAILY TO AFFECTED AREA OF FINGERS 4 Active mometasone (NASONEX) 50 mcg/actuation [place], Non-Aerosol Nasonex 50 mcg/actuation [place] Activ e levoFLOXacin (LEVAQUIN) 500 mg tablet levofloxacin 500 mg tablet Active fluconazole (DIFLUCAN) 150 mg tablet fluconazole 150 mg tablet Active divalproex (DEPAKOTE) 125 mg Tablet, Delayed Release (E.C.) TAKE 1 TABLET BY MOUTH TWICE DAILY 1 Active desoximetasone (TOPICORT) 0.25 % Cream desoximetasone 0.25 % topical cream Active carisoprodol (SOMA) 350 mg tablet carisoprodol 350 mg tablet q 8 hours Active calcium citrate-Vitamin D3 250 mg calcium- 200 unit Tablet Take 1 Tablet by mouth. Active vit B,K-BC-sybu-coppe r oxide-E (STRESS B-COMPLEX) 500-400-23.9-3 dn-sla-uu-mg Tablet Stress B-Complex Take one tablet daily Act chelo zoster vaccine recombinant, adjuvanted, RZV, (SHINGRIX, PF,) 50 mcg/0.5 mL Suspension for Reconstitution Shingrix (PF) 50 mcg/0.5 mL intramuscular suspension, kit Active predniSONE 10 mg Tablets, Dose Pack prednisone 10 mg tablets in a dose pack Take 1 tab by mouth, 3 times a day for 3 daysTake 1 tab by mouth 2 times a day for 2 daysTake 1 tab by mouth once a day for 1 day Active methylPREDNISolon e (MEDROL DOSPACK) 4 mg Tablets, Dose Pack methylprednisolone 4 mg tablets in a dose pack Active lidocaine PF 1% (XYLOCAINE MPF) Solution lidocaine (PF) 10 mg/mL (1 %) injection solution In office injection administered by the provider Active oopy-GW-kil-epa-F JS-YRWD-ls-mv 1.5 mg iron- 8.73 mg capsule,IR & delay rel,biphase iron Take one 325 mg. tablet daily Active Multivitamin Cmb No.21-Iron-FA (CENTRUM) 18-400 mg-mcg Tablet Centrum Take 2 tabs daily Active biotin 1 mg Capsule biotin Take one tablet daily Act chelo oxybutynin chloride (DITROPAN XL) 10 mg Extended Release 24 hour tablet TK 1 T PO D 020 Active hylan g-f 20 (SYNVISC-ONE) 48 mg/6 mL Syringe Synvisc-One 48 mg/6 mL intra-articular syringe Injections given in the office by the doctor Active ProAir RespiClick 90 mcg/actuation metered powder inhaler INHALE 2 PUFFS BY MOUTH EVERY 4 HOURS NEEDED FOR COUGH Active acetaminophen (TYLENOL) 160 mg/5 mL Suspension Take 650 mg by mouth every 4 hours. Active alendronate (FOSAMAX) 70 mg tablet TAKE 1 TABLET BY MOUTH ONCE A WEEK 020 Active blood sugar diagnostic (OneTouch Verio test strips) Strip Test blood sugars three times everyday Dx:E11.65 not insulin dependent Active Blood-Glucose Meter Kit One touch verio reflect meter test blood sugars three times every day DX E11.65 not insulin dependent Active lancets 30 gauge 1 Each. Active Active Problems Problem Noted Date Diagnosed Date Vascular insufficiency 01/27/2021 Type 2 diabetes mellitus without complication Iron deficiency anemia 06/04/2019 Encounters Date Type Department Care Team Description 11/21/2024 External Device Data [facility] ABSTRACTION Provider, Abstract 10/15/2024 External Device Data [facility] Provider, Abstract 10/15/2024 External Device Data [facility] Provider, Abstract 10/15/2024 External Device Data [facility] Provider, Abstract 09/09/2024 External Device Data [facility] Provider, Abstract from Last 3 Months Family History Medical History Relation Name Comments Cancer Father Diabetes Father Diabetes Mother Diabetes Sister 1 Heart Disease Sister 1 Relation Name Status Comments Father Mother Alive Sister 1 Alive Sister 2 Alive Social History Tobacco Use Types Packs/Day Years Used Date Smoking Tobacco: Former Cigarettes 2 18 0 12/05/1973 - 12/06/1991 Smokeless Tobacco: Never Tobacco Cessation:Counseling Given: Not Answered Alcohol Use Standard Drinks/Week Comments Not Currently 0 (1 standard drink = 0.6 oz pur e alcohol) Comments No Sex and Gender Information Value Date Recorded Sex Assigned at Not on file Legal Sex Female 12:35 PM CDT Gender Identity Not on file Sexual Orientation Not on file Last Filed Vital Signs Vital Sign Reading Time Taken Comments Blood Pressure 117/62 03/20/2024 2:07 PM CDT Pulse 80 03/20/2024 2:07 PM CDT Temperature 36.6 C (97.8 F) 03/20/2024 2:07 PM CDT Respiratory Rate 18 03/20/2024 2:07 PM CDT Oxygen Saturation 95% 03/20/2024 2:07 PM CDT Inhaled Oxygen Concentration - - Weight 59 kg (130 lb) 03/20/2024 2:07 PM CDT Height 162.6 cm (5' 4) 01/18/2022 2:19 PM CDT Body Mass Index 22.31 01/18/2022 2:19 PM CDT Plan of Treatment Health Maintenance Due Date Last Done Comments DIABETES ANNUAL RETINAL EXAM 1972 DIABETES MICROALBUMIN ANNUAL SCREEN 1972 LDL CHOLESTEROL ANNUAL 1972 BREAST CANCER SCREENING 1994 FIT-DNA Q 3 years 11/01/1999 FIT/FOBT Q 1 year 11/01/1999 Flex Sig/CT Colonography Q 5 years 11/01/1999 RSV VACCINE (60+ or ) (1 - Risk 60-74 years 1-dose series) 2014 PNEUMOCOCCAL VACCINE 50+ YEA RS (2 of 2 - PCV) 03/31/2019 03/31/2018 OSTEOPOROSIS SCREENING 11/01/2019 INFLUENZA VACCINE (#1) 2024 , 02/27/2019, 02/26/2018, Additional history exists DIABETES HBA1C Q 6 MONTHS 08/21/20242023, 07/10/2023, 12/26/2022, Additional history exists DTAP/TDAP/TD VACCINES (2 - T d or Tdap) 12/18/2024 12/18/2014 DIABETES ANNUAL FOOT EXAM 02/18/2025 02/19/2024 COLORECTAL SCREENING 05/13/2030 05/13/2020, 05/13/20 Colorectal Cancer Screening 05/13/2030 ZOSTER VACCINE Completed 05/22/2019, 02/27/2019 [place] [address] [facility] [id number] Member Subscriber Plan / Payer (Ef fective 2020-Present) Name:Mehdi Lai Relation to Subscriber:Self Name:Mehdi Lai Payer ID:[id number] (NAIC) Type:PPO Address: [id number] [place] [address] [facility] [id number] Care Teams Funeral Limousine Driver Relationship Specialty Start Date End Date Janie Ghotra MD PCP - General Family Practice 11/27/18
[2024-12-10 17:22] LABS: Alanine Aminotransferase 16 U/L (6-35); Albumin Level 3.9 g/dL (3.5-5.1); Alkaline Phosphatase 63 U/L (38-126); Anion Gap 7 mmol/L (4-12); Aspartate Amino Transferase 26 U/L (14-36); Bilirubin,Total 0.4 mg/dL (0.2-1.3); Blood Urea Nitrogen 19 mg/dL (7-17); CRP < 0.5 mg/dL (<1.0); Calcium 9.5 mg/dL (8.4-10.2); Carbon Dioxide 28 mmol/L (22-30); Chloride 103 mmol/L (98-107); Estimated Glomerular Filt Rate > 60; Glucose 154 mg/dL (65-110); Sodium 138 mmol/L (137-145); Total Protein 6.8 g/dL (6.3-8.2)
--- OUTSIDE RECORDS SUMMARY | 2024-12-10 17:22 | XMS_ITS | Clinical Summary ---
Author Organization [facility] Address [address] [place] [address] Care Team Providers Care Staff Training And Development Manager Name Role Phone Unavailable Primary Care Provider Unavailabl e Social History Tobacco Use Types Packs/Day Years Used Date Smoking Tobacco: Never Assessed Comments Unknown Sex and Gender Information Value Date Recorded Sex Assigned at Not on file Legal Sex Female 12:34 PM PST Gender Identity Not on file Sexual Orientation Not on file Plan of Treatment Not on file
[2024-12-10 17:34] LABS: Free T4 Free Thyroxine 1.05 ng/dL (0.78-2.19)
[2024-12-10 17:52] LABS: Hypochromasia 1+; Ovalocytes 1+; Platelet Estimate Adequate (Adequate); Schistocytes None Seen
[2024-12-10 18:25] LABS: Erythrocyte Sedimentation Rate 55 mm/hr (0-20)
== END 2024-12-10 16:20 | disposition home or self-care (01) ==
LOC: ANHLAB 16:24
PROVIDERS: PCP Family Medicine; Visit Provider Internal Medicine Cardiovascular Disease
DX: E11.65 Type 2 diabetes mellitus with hyperglycemia (principal); E06.3 Autoimmune thyroiditis
CPT/HCPCS: 36415; 80053; 83036; 84439; 84443; 85025; 85652; 86140

== ENCOUNTER 2024-12-18 17:46 | Emergency (ER) | payer MEDICARE, SELFPAY ==
--- NOTE | 2024-12-18 18:03 | ED_ITS ---
HPI - URI/Sore Throat General Chief Complaint: Upper Respiratory Infection Stated Complaint: sob,cough Time Seen by Provider: 12/18/24 18:03 Source: patient Mode of arrival: ambulatory Limitations: no limitations History of Present Illness HPI Narrative: Patient is a 69-year-old female who presents with cough and shortness of breath on exertion for almost 1 week. States her sputum went from white to yellow to green and has been consistently green since. Reports coughing up thick secretions. Denies any congestion, sore throat, ear pain, fever, chills, nausea, vomiting, diarrhea. Has history of asthma and has been using inhaler. Also has history of smoking and bronchitis but has not smoked since 1990. States this feels like it did back when she was smoking. Related Data Home Medications ?Medication ?Instructions ?Recorded ?Confirmed ?Last Taken ?Type cetirizine 10 mg tablet (Zyrtec) 10 mg PO DAILY 05/23/19 12/18/24 Unknown Histo ry fluticasone propionate 50 2 spray intranasal BID 05/23/19 12/18/24 Unknown History mcg/actuation nasal spray,suspension levothyroxine 100 mcg tablet 100 mcg PO DAILY 05/23/19 12/18/24 Unknown History (Synthroid) sitagliptin phosphate 100 mg 100 mg PO DAILY 05/23/19 12/18/24 Unknown History tablet (Januvia) biotin 2,500 mcg capsule 5,000 mcg PO DAILY 06/02/19 12/18/24 Unknown History metformin 1,000 mg tablet 500 mg PO BID 01/16/23 12/18/24 Unknown History gabapentin 300 mg capsule 600 mg PO QHS 03/10/23 12/18/24 Unknown History CBD Gummies PO 06/06/24 12/18/24 Unknown History ezetimibe 10 mg tablet (Zetia) 10 mg PO DAILY 10/08/24 12/18/24 Unknown History liothyronine 5 mcg tablet (Cytomel) 5 mcg PO BID 10/08/24 12/18/24 Unknown History Glipizide PO 12/12/24 12/18/24 Unknown History calcium 500 mg (as 2 tablet PO DAILY 12/12/24 12/18/24 Unknown History carbonate)-vitamin D3 3.125 mcg (125 unit) tablet (Calcium) immodium PO 12/12/24 12/18/24 Unknown History glipizide 5 mg tablet mg 12/18/24 Unknown History Allergies Allergy/AdvReac Type Severity Reaction Status Date / Time azithromycin Allergy Intermediate Hives / Verified 12/18/24 18:20 Red Face Beta-Blockers Allergy Intermediate respiratory Verified 12/18/24 18:20 (Beta-Adrenergic Bloc distress bupivacaine Allergy Intermediate Hives Verified 12/18/24 18:20 cephalexin Allergy Intermediate Hives Verified 12/18/24 18:20 codeine Allergy Intermediate Hives / Verified 12/18/24 18:20 Red Face doxycycline Allergy Intermediate Hives Verified 12/18/24 18:20 erythromycin base Allergy Intermediate Hives / Verified 12/18/24 18:20 Red Face oxycodone Allergy Intermediate Hives / Verified 12/18/24 18:20 Red Face prochlorperazine Allergy Intermediate Hives Verified 12/18/24 18:20 promethazine Allergy Intermediate Hives Verified 12/18/24 18:20 epinephrine Allergy Unknown Unknown Verified 12/18/24 18:20 [id number] Reductase AdvReac Intermediate Cramping Verified 12/18/24 18:20 Inhibitor of the Muscles Review of Systems Review of Systems: All systems reviewed & are unremarkable except as noted in HPI and below Constitutional: Constitutional: Denies chills, Denies fatigue, Denies fever(s), Denies headache(s), Denies malaise and Denies weakness Eyes: Eyes: Denies blurry vision, Denies itchy eyes and Denies loss of vision ENT: Denies otalgia, Denies headache(s), Reports nasal congestion, Denies sinus pain and Denies sore throat Cardiovascular: Cardiovascular: Denies chest pain, Denies irregular heart rhythm and Denies dyspnea Respiratory: Respiratory: Reports cough and Reports dyspnea on exertion Gastrointestinal: Gastrointestinal: Denies abdominal pain, Denies diarrhea, Denies nausea and Denies vomiting Musculoskeletal: Musculoskeletal: Denies back pain, Denies myalgias and Denies arthralgias Integumentary/Breasts: Skin/Breast: Denies pruritus and Denies rash Neurologic: Denies headache(s), Denies loss of vision and Denies weakness Psychiatric: Psychiatric: Reports no additional psychiatric complaints Endocrine: Endocrine: Denies fatigue Allergic/Immunologic: Allergic/Immunologic: Denies itchy eyes PMFSH Past Medical History Medical History ROGE (generalized anxiety disorder) Habitual self-excoriation Coronary artery spasm Kidney stones Gall stones Chronic diarrhea Opioid dependence Incontinence of feces Unspecified open wound of abdominal wall, unspecified quadrant without penetration into peritoneal cavity, subsequent encounter Chronic cluster headache, not intractable Chronic pain disorder Continuous urine leakage Hypothyroidism, acquired, autoimmune MDD (major depressive disorder), recurrent episode, moderate Metacarpophalangeal joint pain of right hand Mixed obsessional thoughts and acts Other iron deficiency anemias Primary osteoarthritis of first carpometacarpal joint of left hand Surgical History Surgical History H/O gynecological procedure 1983 ASCUS colposcopy hysterotomy & D&C *UTERUS/OVARIES INTACTS* June 1984 hysterotomy History of cholecystectomy History of appendectomy Status post gastric bypass for obesity History of thyroidectomy History of parathyroidectomy History of tonsillectomy History of umbilical hernia repair Family History Family History Mother Diabetes mellitus Hypertension Patient's mother is in good health Family history of coronary artery disease Father Diabetes mellitus Patient's father is Family history of cardiovascular disease Social History Social History Social History: Smoking status: Former smoker Tobacco type: cigarettes Second hand tobacco smoke exposure: No Smoking end date: 07/03/91 Alcohol intake: never Substance use: never Substance use type: marijuana Do You Feel Safe in your Home?: Yes Lack of Transportation: YES Lack of Food: Never True Current Housing: Decline to Answer Concerned About Future Housing: Decline to Answer Difficulty Paying Gas/Electric Bills: Decline to Answer Difficulty Paying for Meds: YES Currently Unemployed: Decline to Answer Education: Bachelor's Degree Difficulty w/ Childcare or Family Care: Decline to Answer Living arrangements: with family Additional living arrangements comments: lives with mother Occupation/Education: retired Gender identity (if verbalized by the patient): Female Sexual Orientation (if Verbalized by the Patient): Straight or Heterosexual Comments At time of signature, agree with nursing past medical, surgical, social and family history. There is no relevant family history pertinent to the presenting complaint. Exam Const: General: cooperative, healthy appearing, comfortable, no acute distress and well nourished Nutritional Appearance: well nourished Orienta tion/consciousness: patient oriented x3 Limitations: no limitations HENMT: Head: normal to inspection, normocephalic and atraumatic Ears: hearing grossly normal bilaterally, external ears normal, TM's normal bilaterally, EAC's normal and no periauricular adenopathy Face/Nose/Sinus: Normal external nose present, Abnormal mucous membranes and turbinates present erythematous bilateral and diffuse, normal facial exam, sinuses nontender and face symmetric Face and sinus: normal facial exam, sinuses nontender and face symmetric Mouth: Yes Normal oral and palatal mucosa present, Yes lip normal, Yes tongue normal, Yes Normal salivary glands and ducts present, Yes oropharynx normal and Yes moist mucous membranes Teeth and gingiva: dentition normal Throat: posterior oropharynx normal, tonsils normal and uvula midline Eyes: General: appearance normal, both eyes and all related structures Alignment and Position: alignment normal and position normal Periorbital: periorbital findings normal Eyelids: eyelids normal Pupils: Equal, round and reactive pupils present Neck: Neck: normal visual inspection, full ROM, no lymphadenopathy and supple Chest: Chest palpation & inspection: normal inspection of the chest and normal palpation of entire chest wall Resp: Effort & Inspection: normal respiratory effort, able to speak in complete sentences and Actively coughing productive Auscultation: clear to auscultation bilaterally, no crackles, no rales, no rhonchi and no wheezes Cardio: Rate: regular rate Rhythm: regular rhythm Heart sounds: S1 normal heart sound present and S2 normal heart sound present GI: Inspection: normal to inspection Skin: General skin exam: normal color and no rashes or lesions noted Neuro: General: patient oriented x3 and moves all extremities Cranial nerves: Yes Equal, round and reactive pupils present Speech: normal speech Gait exam (Neuro): Normal gait present Extrem: General: normal to inspection, full ROM and no edema Psych: Appearance: grossly normal and well kempt Mental Status: mental status grossly normal Speech and movement: Normal speech and movement present Affect: normal affect Attitude: cooperative Thought process: Normal thought process present Course Course Emergency Course: Discharge instructions reviewed with patient, as well as provided in writing per nursing staff. The instructions also include specific and strict return/GO TO THE ER as well as f/u information. All questions have been answered, and the patient deny any further questions w ith discharge and discharge plan. Portions of this record may have been created with voice recognition software Level of Care: Express Care Visit Vital Signs Vital signs: Reviewed MDM - URI/Sore Throat MDM Narrative Medical decision making narrative: Pt well hydrated appearing, in no respiratory distress, hemodynamically stable. Recommend supportive care. The patient is stable at time of discharge the clinical impression was discussed and the patient was given the opportunity to ask questions, which were addressed as completely as possible given the information available at present. Anticipatory guidance and return to care precautions were discussed and the importance of primary care follow-up was stressed and encouraged. The patient voiced understanding of the plan, indicat ions to return, and the need for follow-up. Exam findings show no acute concerns or changes Patient is appropriate for outpatient treatment and follow-up. Differential diagnosis considered: Deleon virus, strep pharyngitis, allergic rhinitis, upper respiratory tract infection, sinusitis, rhinosinusitis, nasopharyngitis. viral pharyngitis, otitis media, otitis externa, otitis effusion, foreign body, cerumen impaction, viral syndrome, and influenza.? Medical Records Attestation: I reviewed the patient's medical records. Discharge Plan Discharge Clinical Impression: Acute purulent bronchitis Patient Disposition: Home Condition: Stable Instructions: Acute Bronchitis (ED) Additional Instructions: Take antibiotic as prescribed. Use Tessalon Perles as needed for cough. Other symptomatic treatments include: -Alternate Tylenol and Motrin per package directions for fever or pain: Tylenol 650-1000mg by mouth every 4-6 hours. Do not exceed 4000mg in 24 hours. Advil (Ibuprofen) 600 mg by mouth every 6 hours. Do not exceed 2400mg in 24 hours. 8 AM: Tylenol 11 AM: Ibuprofen 2 PM: Tylenol 5 PM: Ibuprofen 8 PM: Tylenol 11 PM: Ibuprofen 2 AM: Tylenol 5 AM: Ibuprofen -Antihistamine medication such as Benadryl at night and Zyrtec/Claritin/Noemi during the day can help improve symptoms. -Use Flonase twice a day for 5 days then daily to help reduce the inflammation and dry up your sinuses. -You can also use Sudafed or Mucinex. Be sure to drink plenty of water with these medications at least 8 ounces with every dose and it is important to drink 8 to 10 glasses of water per day. Water is a natural decongestant -Eat and drink things that are easy to swallow, like tea or soup, or popsicles. -Oral rinses such as: Salt water gargles and/or may use topical anesthetic (eg. Chloraseptic spray) or lozenges to relieve dryness or throat pain). -Frequent hand washing or hand vehicle window tinter is one of the best ways to prevent spread of infection. -Using a vaporizer or humidifier at night will also help thin secretions and help with coughing up phlegm. Call your Primary Care Doctor and make a follow-up appointment in 3 days. If your cough worsens, you develop a fever greater than 103, you develop shaking chills, a fast heartbeat, trouble breathing and/or feel you are are breathing much faster than usual, call your Primary Care Doctor or go to the ER. Your blood pressure was elevated above 120/80 today at Urgent Care. This puts you above the threshold for follow up visit with a primary care provider. High blood pressure does not usually cause any symptoms, however it may lead to kidney failure, stroke, heart disease just to name a few if untreated . Many people are anxious when seeing a provider or nurse. As a result, you are not diagnosed with hypertension at this time unless your blood pressure is persistently high at two office visits at least one week apart. Some things that can help lower blood pressure are lifestyle modifications, such as light exercise, decreased salt in diet, and weight loss. It is important to follow up with a PCP about this within 1 week. Patient Language: [place]er Prescriptions: New benzonatate 100 mg capsule 100 mg PO BID PRN (Reason: cough) Qty: 14 0RF amoxicillin-pot clavulanate 875-125 mg tablet 1 tablet PO Q12H 10 Days Qty: 20 0RF fluticasone propionate [Flonase Allergy Relief] 50 mcg/actuation spray,suspension 1 spray intranasal DAILY Qty: 16 0RF Rx Instructions: administer into each nostril No Action biotin 2,500 mcg Capsule 5,000 mcg PO DAILY calcium carbonate-vitamin D3 [Calcium 500 + D (D3)] 500 mg-3.125 mcg (125 unit) tablet 2 tablet PO DAILY glipizide 5 mg tablet albuterol sulfate 90 mcg/actuation HFA aerosol inhaler 1 inh inhalation Q4H PRN (Reason: shortness of breath or wheezing) Qty: 6.7 0RF sertraline [Zoloft] 100 mg tablet 150 mg PO DAILY Qty: 135 2RF CBD Gummies PO liothyronine [Cytomel] 5 mcg tablet 5 mcg PO BID losartan 25 mg tablet 25 mg PO DAILY Qty: 90 1RF ezetimibe [Zetia] 10 mg tablet 10 mg PO DAILY Patient Comments: as per cardio immodium PO Glipizide PO Rx Instructions: BID Januvia 100 mg tablet 100 mg PO DAILY cetirizine [Zyrtec] 10 mg tablet 10 mg PO DAILY levothyroxine [Synthroid] 100 mcg tablet 100 mcg PO DAILY fluticasone propionate 50 mcg/actuation spray,suspension 2 spray NASAL BID metformin 1,000 mg tablet 500 mg PO BID gabapentin 300 mg capsule 600 mg PO QHS Patient Comments: as per podiatry Rx Instructions: 1 in am , 2 in pm clonazepam [Klonopin] 1 mg tablet 1 - 2 mg PO DAILY Qty: 60 1RF esomeprazole magnesium [Nexium] 40 mg capsule,delayed release(DR/EC) 40 mg PO DAILY Qty: 100 3RF montelukast 10 mg tablet See Rx Instructions .ROUTE .COMPLEX Qty: 90 2RF Dose Instruction: Take 1 tablet by mouth once daily Rx Instructions: Take 1 tablet by mouth once daily mupirocin 2 % ointment See Rx Instructions .ROUTE .COMPLEX Qty: 22 0RF Dose Instruction: APPLY OINTMENT TOPICALLY TO THE AFFECTED AREA(S) TWICE DAILY Rx Instructions: APPLY OINTMENT TOPICALLY TO THE AFFECTED AREA(S) TWICE DAILY alendronate 70 mg tablet 70 mg PO WEEKLY Qty: 12 1RF divalproex 125 mg tablet,delayed release (DR/EC) See Rx Instructions .ROUTE .COMPLEX Qty: 180 1RF Dose Instruction: Take 1 tablet by mouth twice daily Rx Instructions: Take 1 tablet by mouth twice daily dextroamphetamine-amphetamine [Adderall XR] 20 mg capsule,extended release 24hr 20 mg PO DAILY Qty: 30 0RF hydrocodone-acetaminophen 5-325 mg tablet 1 tablet PO Q8H PRN (Reason: pain) Qty: 90 0RF Follow-up/Referrals: Sherman Goodwin MD [Primary Care Provider] - 3 Days Time of Disposition: 18:36
[2024-12-18 18:24] VITALS: BP 141/50; PULSE 79; RESP 18; TEMP 36.3; O2SAT 98
== END 2024-12-18 18:45 | disposition home or self-care (01) ==
PROVIDERS: Emergency Provider Nurse Practitioner Family; PCP Family Medicine
DX: J20.9 Acute bronchitis, unspecified (principal); Z87.891 Personal history of nicotine dependence; E06.3 Autoimmune thyroiditis; M18.12 Unilateral primary osteoarthritis of first carpometacarpal joint, left hand; E66.9 Obesity, unspecified; Z98.84 Bariatric surgery status; Z68.20 Body mass index [BMI] 20.0-20.9, adult; Z90.89 Acquired absence of other organs; F41.1 Generalized anxiety disorder; F33.9 Major depressive disorder, recurrent, unspecified
CPT/HCPCS: 99213; G0463

== ENCOUNTER 2025-03-04 17:09 | Emergency (ER) | payer MEDICARE, SELFPAY ==
--- NOTE | ~2025-03-04 | XR_ITS ---
[[id number]_CR ] INDICATION: Recent falls. Rib pain. TECHNIQUE: Frontal projection of the upper ribs, frontal projection of the lower ribs, oblique projection of all the ribs, frontal inspiratory chest x-ray for interpretation. FINDINGS: There is an acute right ninth rib fracture. There are age indeterminate fractures of the right fifth and sixth rib fractures anteriorly. IMPRESSION: 1: Acute right ninth rib fracture. Age-indeterminate fractures anterior aspect of the right fifth and sixth ribs. Reviewed, dictated and finalized at location O.
[2025-03-04 17:27] VITALS: BP 147/53; PULSE 77; RESP 18; TEMP 36.8; O2SAT 99
--- NOTE | 2025-03-04 17:41 | ED.FALL ---
HPI - Fall General Chief Complaint: Fall Stated Complaint: FALL / Bilateral Rib Pain . RT Knee Pain Source: patient Mode of arrival: ambulatory Limitations: no limitations History of Present Illness HPI Narrative: bilateral rib pain after falling Says over the past 2 days she fell and struck left ribs on the stove then fell and struck the right ribs on the kitchen island Says she has been falling without getting dizzy or tripping and plans to f/u with her pcp and discuss neurology consultation. Pt increased her dose of hydrocodone after the falls due to pain. Endorses chronic hip and knee pain due to arthritis. Related Data Home Medications ?Medication ?Instructions ?Recorded ?Confirmed ?Last Taken ?Type cetirizine 10 mg tablet (Zyrtec) 10 mg PO DAILY 05/23/19 02/11/25 Unknown History fluticasone propionate 50 2 spray intranasal BID 05/23/19 02/11/25 Unknown History mcg/actuation nasal spray,suspension levothyroxine 100 mcg tablet 100 mcg PO DAILY 05/23/19 02/11/25 Unknown History (Synthroid) sitagliptin phosphate 100 mg 100 mg PO DAILY 05/23/19 02/11/25 Unknown History tablet (Januvia) biotin 2,500 mcg capsule 5,000 mcg PO DAILY 06/02/19 02/11/25 Unknown History metformin 1,000 mg tablet 500 mg PO BID 01/16/23 02/11/25 Unknown History gabapentin 300 mg capsule 600 mg PO QHS 03/10/23 02/11/25 Unknown History CBD Gummies PO 06/06/24 02/11/25 Unknown History ezetimibe 10 mg tablet (Zetia) 10 mg PO DAILY 10/08/24 02/11/25 Unknown History liothyronine 5 mcg tablet (Cytomel) 5 mcg PO BID 10/08/24 02/11/25 Unknown History Glipizide PO 12/12/24 02/11/25 Unknown History calcium 500 mg (as 2 tablet PO DAILY 12/12/24 02/11/25 Unknown History carbonate)-vitamin D3 3.125 mcg (125 unit) tablet (Calcium) immodium PO 12/12/24 02/11/25 Unknown History glipizide 5 mg tablet mg 12/18/24 02/11/25 Unknown History Allergies Allergy/AdvReac Type Severity Reaction Status Date / Time azithromycin Allergy Intermediate Hives / Verified 03/04/25 17:24 Red Face Beta-Blockers Allergy Intermediate respiratory Verified 03/04/25 17:24 (Beta-Adrenergic Bloc distress bupivacaine Allergy Intermediate Hives Verified 03/04/25 17:24 cephalexin Allergy Intermediate Hives Verified 03/04/25 17:24 codeine Allergy Intermediate Hives / Verified 03/04/25 17:24 Red Face doxycycline Allergy Intermediate Hives Verified 03/04/25 17:24 erythromycin base Allergy Intermediate Hives / Verified 03/04/25 17:24 Red Face oxycodone Allergy Intermediate Hives / Verified 03/04/25 17:24 Red Face prochlorperazine Allergy Intermediate Hives Verified 03/04/25 17:24 promethazine Allergy Intermediate Hives Verified 03/04/25 17:24 epinephrine Allergy Unknown Unknown Verified 03/04/25 17:24 [id number] Reductase AdvReac Intermediate Cramping Verified 03/04/25 17:24 Inhibitor of the Muscles Review of Systems Review of Systems: CONSTITUTIONAL: Denies body aches, fever, chills EYES: Denies visual changes ENT: Denies rhinorrhea, congestion CARDIOVASCULAR: Denies chest pain, palpitations, or edema. RESPIRATORY: Denies cough or dyspnea. SKIN: Denies rash, itching, or wounds. MUSCULOSKELETAL: reports back pain, joint pain, or myalgia. NEUROLOGIC: Denies headache, numbness, tingling, or weakness. All systems reviewed & are unremarkable except as noted in HPI and below PMFSH Past Medical History Medical History ROGE (generalized anxiety disorder) Habitual self-excoriation Coronary artery spasm Kidney stones Gall stones Chronic diarrhea Opioid dependence Incontinence of feces Unspecified open wound of abdominal wall, unspecified quadrant without penetration into peritoneal cavity, subsequent encounter Chronic cluster headache, not intractable Chronic pain disorder Continuous urine leakage Hypothyroidism, acquired, autoimmune MDD (major depressive disorder), recurrent episode, moderate Metacarpophalangeal joint pain of right hand Mixed obsessional thoughts and acts Other iron deficiency anemias Primary osteoarthritis of first carpometacarpal joint of left hand Surgical History Surgical History H/O gynecological procedure 1983 ASCUS colposcopy hysterotomy & D&C *UTERUS/OVARIES INTACTS* June 1984 hysterotomy History of cholecystectomy History of appendectomy Status post gastric bypass for obesity History of thyroidectomy History of parathyroidectomy History of tonsillectomy History of umbilical hernia repair Family History Family History Mother Diabetes mellitus Hypertension Patient's mother is in good health Family history of coronary artery disease Father Diabetes mellitus Patient's father is Family history of cardiovascular disease Social History Social History Social History: Smoking status: Former smoker Tobacco type: cigarettes Second hand tobacco smoke exposure: No Smoking end date: 07/03/91 Alcohol intake: never Substance use: never Substance use type: marijuana Do You Feel Safe in your Home?: Yes Lack of Transportation: YES Lack of Food: Never True Current Housing: Decline to Answer Concerned About Future Housing: Decline to Answer Difficulty Paying Gas/Electric Bills: Decline to Answer Difficulty Paying for Meds: YES Currently Unemployed: Decline to Answer Education: Bachelor's Degree Difficulty w/ Childcare or Family Care: Decline to Answer Living arrangements: with family Additional living arrangements comments: lives with mother Occupation/Education: retired Gender identity (if verbalized by the patient): Female Sexual Orientation (if Verbalized by the Patient): Straight or Heterosexual Comments At time of signature, I have reviewed and agree with nursing past medical, surgical, social and family history unless otherwise noted. Please see nursing chart for further information. There is no relevant family history pertinent to the presenting complaint Exam Narrative: GENERAL: well appearing, in no acute distress. CHEST: Speaks in full sentences. No respiratory distress. HEART: Regular rate and rhythm. Normal and equal peripheral pulses. MUSC: Bilateral lower ribs tender with palpation, no bruising noted EXTREMITIES: Right knee with mild swelling. Using walker at times. SKIN: Warm, dry, Mid lower abdominal incision has chronically unhealing wounds, scant serous and bloody drainage, no apparent cellulitis or odor. Left lateral hip also with chronic nonhealing ulcerations, no drainage, no surrounding induration. NEURO: Alert and oriented x3. PSYCH: Normal mood and affect Course Course Emergency Course: Patient is aware of diagnosis, understands and agrees to treatment plan. Anticipatory guidance given. Patient agrees to follow-up as directed and is aware of reasons to seek care at the emergency department. Portions of this record may have been created with voice recognition software Level of Care: Express Care Visit Vital Signs Vital signs: Vital Signs Temperature 98.2 F 03/04/25 17:27 Pulse Rate 77 03/04/25 17:27 Respiratory Rate 18 03/04/25 17:27 Blood Pressure 147/53 H 03/04/25 17:27 Pulse Oximetry 99 03/04/25 17:27 Oxygen Delivery Room Air 03/04/25 17:27 Temperature 98.2 F 03/04/25 17:27 Pulse Rate 77 03/04/25 17:27 Respiratory Rate 18 03/04/25 17:27 Blood Pressure 147/53 H 03/04/25 17:27 Pulse Oximetry 99 03/04/25 17:27 Oxygen Delivery Room Air 03/04/25 17:27 Reviewed MDM - Fall MDM Narrative Medical decision making narrative: Discussed physical exam findings And x-ray. Right 9th rib fx. Provided with IS; instructed to use hourly and pt will remove the abdominal binder. patient has hydrocodone Advised supportive measures and signs/symptoms to go to the ER. Pt is appropriate for outpt treatment and f/u. Differential Diagnosis Differential diagnosis: Likely other (Shoulder dislocation, clavicle fracture, humerus fracture, scapular fracture, acromioclavicular joint injury, rotator cuff tear, bicep tendon rupture, tricep tendon rupture, cervical radiculopathy) Imaging Data Radiologist's impression: Patient: Mehdi Lai : 1955 MR#: [id number] Age: 69 Acct:[id number] Loc: [facility] ADM Date: 03/04/25Attending Dr: [[id number] ] INDICATION: Recent falls. Rib pain. TECHNIQUE: Frontal projection of the upper ribs, frontal projection of the lower ribs, oblique projection of all the ribs, frontal inspiratory chest x-ray for interpretation. FINDINGS: There is an acute right ninth rib fracture. There are age indeterminate fractures of the right fifth and sixth rib fractures anteriorly. IMPRESSION: 1: Acute right ninth rib fracture. Age-indeterminate fractures anterior aspect of the right fifth and sixth ribs. Discharge Plan Discharge Clinical Impression: Fractured rib Patient Disposition: Home Condition: Stable Instructions: Antibiotic Form, Rib Fracture (ED) Additional Instructions: Rest. Avoid pushing, pulling, lifting or anything that worsens the symptoms Tylenol every 8 hours as needed (not to exceed 3000mg from all sources in 24 hours) You can alternate with ibuprofen 600mg Alternate ice/heat to the site. Lidocaine or salon pas pain patch or use pain cream like icy/hot or biofreeze. Do not wrap your ribs or use a brace. It is important to allow the ribs to expand fully to reduce the complication of pneumonia. abdominal wounds: Keep the areas clean and dry - cleanse with warm water and mild soap and allow to fully dry. recommend using sterile gauze pads if the wounds are draining Do not use hydrogen peroxide or alcohol. Discuss further treatment with your pcp Follow up with your primary care provider as needed in 1 week Go to the ER for worsening symptoms or concerns Patient Language: Welsh Prescriptions: No Action biotin 2,500 mcg Capsule 5,000 mcg PO DAILY calcium carbonate-vitamin D3 [Calcium 500 + D (D3)] 500 mg-3.125 mcg (125 unit) tablet 2 tablet PO DAILY glipizide 5 mg tablet fluticasone propionate [Flonase Allergy Relief] 50 mcg/actuation spray,suspension 1 spray intranasal DAILY Qty: 16 0RF Rx Instructions: administer into each nostril albuterol sulfate 90 mcg/actuation HFA aerosol inhaler 1 inh inhalation Q4H PRN (Reason: shortness of breath or wheezing) Qty: 6.7 0RF sertraline [Zoloft] 100 mg tablet 150 mg PO DAILY Qty: 135 2RF CBD Gummies PO liothyronine [Cytomel] 5 mcg tablet 5 mcg PO BID losartan 25 mg tablet 25 mg PO DAILY Qty: 90 1RF ezetimibe [Zetia] 10 mg tablet 10 mg PO DAILY Patient Comments: as per cardio immodium PO Glipizide PO Rx Instructions: BID dextroamphetamine-amphetamine [Adderall XR] 20 mg capsule,extended release 24hr 20 mg PO DAILY Qty: 30 0RF hydrocodone-acetaminophen 5-325 mg tablet 1 tablet PO Q8H PRN (Reason: pain) Qty: 90 0RF Januvia 100 mg tablet 100 mg PO DAILY cetirizine [Zyrtec] 10 mg tablet 10 mg PO DAILY levothyroxine [Synthroid] 100 mcg tablet 100 mcg PO DAILY fluticasone propionate 50 mcg/actuation spray,suspension 2 spray NASAL BID metformin 1,000 mg tablet 500 mg PO BID gabapentin 300 mg capsule 600 mg PO QHS Patient Comments: as per podiatry Rx Instructions: 1 in am , 2 in pm clonazepam [Klonopin] 1 mg tablet 1 - 2 mg PO DAILY Qty: 60 1RF esomeprazole magnesium [Nexium] 40 mg capsule,delayed release(DR/EC) 40 mg PO DAILY Qty: 100 3RF montelukast 10 mg tablet See Rx Instructions .ROUTE .COMPLEX Qty: 90 2RF Dose Instruction: Take 1 tablet by mouth once daily Rx Instructions: Take 1 tablet by mouth once daily mupirocin 2 % ointment See Rx Instructions .ROUTE .COMPLEX Qty: 22 0RF Dose Instruction: APPLY OINTMENT TOPICALLY TO THE AFFECTED AREA(S) TWICE DAILY Rx Instructions: APPLY OINTMENT TOPICALLY TO THE AFFECTED AREA(S) TWICE DAILY divalproex 125 mg tablet,delayed release (DR/EC) See Rx Instructions .ROUTE .COMPLEX Qty: 180 1RF Dose Instruction: Take 1 tablet by mouth twice daily Rx Instructions: Take 1 tablet by mouth twice daily alendronate 70 mg tablet See Rx Instructions .ROUTE .COMPLEX Qty: 12 1RF Dose Instruction: Take 1 tablet by mouth once a week Rx Instructions: Take 1 tablet by mouth once a week buspirone 5 mg tablet 5 mg PO TID PRN (Reason: anxiety) Qty: 60 0RF Follow-up/Referrals: Sherman Goodwin MD [Primary Care Provider, Family Practice] Time of Disposition: 18:20
== END 2025-03-04 18:38 | disposition home or self-care (01) ==
PROVIDERS: Emergency Provider Nurse Practitioner Family; PCP Family Medicine
DX: S22.31XA Fracture of one rib, right side, initial encounter for closed fracture (principal); W19.XXXA Unspecified fall, initial encounter; Z87.891 Personal history of nicotine dependence; E03.9 Hypothyroidism, unspecified; F41.1 Generalized anxiety disorder; F33.9 Major depressive disorder, recurrent, unspecified; M18.12 Unilateral primary osteoarthritis of first carpometacarpal joint, left hand
CPT/HCPCS: 71110; 99213; G0463

== ENCOUNTER 2025-03-06 15:09 | Outpatient (CLI) | payer MEDICARE, SELFPAY ==
--- NOTE | ~2025-03-06 | XR_ITS ---
X-rays right knee Indication: Pain Comparison: None Technique: 3 views right knee Findings/Impression: 1. No fracture, dislocation, or effusion right knee. 2. Osteopenia. 3. Moderate medial and patellofemoral compartment joint space narrowing, with mild marginal osteophytes. 4. Peripheral arterial disease. Reviewed, dictated and finalized at location R.
--- OUTSIDE RECORDS SUMMARY | 2025-03-06 15:14 | XMS_ITS | Clinical Summary ---
Author Organization [facility] Health Address [address] [place] [address] Care Team Providers Care Displayer Merchandise Name Role Phone Unavailable Primary Care Provider [...]
--- OUTSIDE RECORDS SUMMARY | 2025-03-06 15:14 | XMS_ITS | Encounter Summary ---
Author Organization [facility] Health Address [address] [place] [address] Care Team Providers Care 3D Modeler Name Role Phone Unavailable Primary Care Provider Unavailabl e Prior Encounters Date Type Department Care Team Description 07/22/2019 Converted CPS Chart Documents [facility] [address] [place] [id number] <No scans attached> 07/22/2019 Converted 13x Documents [facility] [address] [place] [phone] <No scans attached> Plan of Treatment Not [...]
--- OUTSIDE RECORDS SUMMARY | 2025-03-06 15:14 | XMS_ITS | Clinical Summary ---
Author Organization [facility] [address] [place] [address] [place] [phone] Care Team Providers Care Roller Stitcher Name Role Phone Leticia Crane MD Unavailable [phone] Jneni Leblanc Unavailable [phone] Sherman Goodwin MD Primary Care Provider Allergies [...] Rash Medium 11/20/2017 Prochlorperazine Hives High 05/09/2014 Efodlcx-Iyp-Qum Reductase Inhibitors Muscle pain Medium 09/21/2021 Medications carisoprodol (SOMA) 350 mg tabletIndications :Muscle Spasm Take 1 tablet (350 mg total) by mouth every 8 (eight) hours as needed 3 018 Active montelukast (SINGULAIR) 10 mg tablet Take 1 tablet (10 mg total) by mouth daily as needed 2 018 Active sertraline (ZOLOFT) 100 mg tablet Take 1 tablet (100 mg total) by mouth daily Take 2 tablet every night 1 Active glucosamine-chond roit-vit C-Mn 500-400 mg capsule [...] (20 mg total) by mouth daily 0 Active gabapentin (NEURONTIN) 100 mg capsule Take 1 capsule (100 mg total) by mouth 2 (two) times a day 3 Active loperamide (IMODIUM A-D) 2 mg tablet Take 1 tablet (2 mg total) by mouth as needed for diarrhea Taken once a day Active divalproex DR (DEPAKOTE) 125 mg EC tablet Take 1 tablet (125 mg total) by mouth 2 (two) times a day Active oxybutynin XL (DITROPAN-XL) 10 mg 24 hr tablet Take 1 tablet (10 mg total) by mouth nightly Active alendronate (FOSAMAX) 70 mg tablet TAKE 1 TABLET BY MOUTH ONCE A WEEK Active HYDROcodone-aceta minophen (NORCO) 5-325 mg per tablet Take by mouth every 8 (eight) hours as needed Active melatonin 2.5 mg tablet,chewable Take by mouth Active losartan (COZAAR) 50 mg tablet Take 1 tablet (50 mg total) by mouth daily 022 Active docosanoL (ABREVA) 10 % cream Active mupirocin (BACTROBAN) 2 % ointment APPLY OINTMENT TOPICALLY TWICE DAILY TO THE AFFECTED AREA(S) [address] (NexIUM) 40 mg capsule TAKE 1 CAPSULE BY MOUTH ONCE DAILY BEFORE BREAKFAST 90 capsule 023 Active predniSONE (DELTASONE) 10 mg tablet 023 Active gabapentin (NEURONTIN) 300 mg capsule Take 1 capsule (300 mg total) by mouth 3 (three) times a day 023 Active ezetimibe (ZETIA) 10 mg tablet Take 1 tablet (10 mg total) by mouth daily 90 tablet 3 024 Active metFORMIN (GLUCOPHAGE) 1,000 mg tabletIndications :Type 2 diabetes mellitus with hyperglycemia, without long-term current use of insulin (HCC) Take 1 tablet (1,000 mg total) by mouth 2 (two) times a day with meals 180 tablet 3 024 Active SITagliptin phosphate (JANUVIA) 100 mg tabletIndications :type 2 diabetes mellitus Take 1 tablet (100 mg total) by mouth daily 90 tablet 3 024 Active liothyronine (CYTOMEL) 5 mcg tabletIndications :Postoperative hypothyroidism Take 1 tablet (5 mcg total) by mouth daily 90 tablet 3 024 Active pen needle, diabetic (Pen Needle) 31 gauge x 5/16 needle Use to inject 1-4 times daily as directed 100 each 1 024 Active insulin lispro (HumaLOG, ADMELOG) 100 unit/mL pen for injection INJECT 3 TO 8 UNITS THREE TIMES DAILY WITH MEALS 15 mL 1 025 Active glipiZIDE (GLUCOTROL) 5 mg tabletIndications :Type 2 diabetes mellitus with hyperglycemia, without long-term current use of insulin (HCC) TAKE 1 TABLET BY MOUTH TWICE DAILY WITH MEALS 180 tablet 025 Active levothyroxine (SYNTHROID) 112 mcg tablet Take 1 tablet (112 mcg total) by mouth daily 025 Active insulin glargine 100 unit/mL (3 mL) pen for injectionIndicati ons:Type 2 diabetes mellitus with hyperglycemia, without long-term current use of insulin ([facility]) Inject 15 Units under the skin nightly 15 mL 3 025 2025 Active Contour Next Test Strips stripIndications: Type 2 diabetes mellitus with hyperglycemia, without long-term current use of insulin ([facility]) Check blood sugar 4 times daily if CGM failure 400 strip 3 025 Active blood-glucose meter (Contour Next EZ Meter) kitIndications:Ty pe 2 diabetes mellitus with hyperglycemia, without long-term current use of insulin ([facility]) Check blood sugar 4 times daily 1 kit 025 Active lancets 30 gauge miscIndications:T ype 2 diabetes mellitus with hyperglycemia, without long-term current use of insulin ([facility]) 1 each 4 (four) times a day before meals and nightly Dx:E11.65 not insulin dependent 400 each 3 025 2025 Active lancets 30 gauge misc 1 each 3 (three) times a day before meals Dx:E11.65 not insulin dependent 300 each 3 021 2024 Discontinued(Naomi may) blood-glucose meter kit One touch verio reflect meter test blood sugars three times every day DX E11.65 not insulin dependent 1 each 021 2024 Discontinued blood glucose diagnostic (OneTouch Verio test strips) strip USE STRIP TO CHECK GLUCOSE THREE TIMES DAILY 300 each 6 023 2024 Discontinued Active Problems Problem Noted Date Diagnosed Date Rupture of extensor tendon of right hand 025 JUAN III (vulvar intraepithelial neoplasia III) 0 01/17/2025 Arthritis 04/04/2024 Hypertension associated with type 2 diabetes mariia litus 09/01/2022 Assessment & Plan (02/18/2025 2:49 PM CDT): Chronic problem. Currently taking losartan 50mg daily Reports she recently had labs completed at [place]. Will sign release to get copy of labs. Assessment & Plan (02/19/2024 3:31 PM CDT): Chronic, fairly controlled C/w losartan Assessment & Plan (10/29/2023 9:41 PM CDT): Chronic, fairly controlled C/w losartan Assessment & Plan (07/11/2023 12:30 PM SALES REPRESENTATIVE METALS): Chronic, well controlled C/w losartan Assessment & Plan (03/20/2023 4:01 PM CDT): Chronic, well controlled C/w losartan Assessment & Plan (12/26/2022 10:00 PM CDT): Chronic, well controlled C/w losartan Assessment & Plan (09/05/2022 2:43 PM SALES REPRESENTATIVE METALS): Controlled on losartan. No changes. Acquired trigger [...] (04/30/2020): Added automatically from request for surgery [id number] Osteoarthritis of carpometacarpal (CMC) joint of thumb 02/25/2020 Iron deficiency anemia 06/04/2019 Fracture of zygomaticomaxillary complex 06/28/20 18 Psoriasis 06/22/2018 Diabetic polyneuropathy asso ciated with type 2 diabetes mellitus 11/21/2017 Assessment & Plan (02/18/2025 2:07 PM CDT): Chronic problem. Currently taking Gabapentin 300mg tid. Reviewed foot care; needs to lotion daily. Aware to check feet nightly, not to go barefoot. Assessment & Plan (07/11/2023 12:30 PM SALES REPRESENTATIVE METALS): Keep working on better glycemic control C/w [...] relief Assessment & Plan (09/07/2020 4:37 PM SALES REPRESENTATIVE METALS): Keep working on better glycemic control C/w gabapentin for symptomatic relief Assessment & Plan (05/18/2020 3:02 PM SALES REPRESENTATIVE METALS): Keep working on better glycemic control C/w gabapentin for symptomatic relief Assessment & Plan (02/10/2020 1:14 PM CDT): Keep working on better glycemic control C/w gabapentin for symptomatic relief Assessment & Plan (11/04/2019 3:27 PM CDT): Keep working on better glycemic control C/w gabapentin for symptomatic relief Assessment & Plan (08/13/2019 11:59 AM SALES REPRESENTATIVE METALS): Keep working on better glycemic control C/w gabapentin for symptomatic relief Assessment & Plan (05/06/2019 4:01 PM SALES REPRESENTATIVE METALS): Keep working on better glycemic control C/w gabapentin for symptomatic relief Assessment & Plan (05/07/2018 2:25 PM SALES REPRESENTATIVE METALS): Keep working on better glycemic control Bariatric surgery status 11/20/2017 Assessment & Plan (05/06/2019 4:01 PM SALES REPRESENTATIVE METALS): serum calcium and ionized gallito and vitamin d 25 ( [place]) and PTH intact - WNL Assessment & Plan (02/12/2018 8:26 PM CDT): Recent serum calcium and ionized gallito and vitamin d 25 ( [place]) and PTH intact - WNL Postoperative hypothyroidism 11/20/2017 Assessment & Plan (02/18/2025 2:49 PM CDT): Chronic problem. Clinically & biochemically euthyroid on current levothyroxine 112 mcg daily (since 12/2024). Aware to take 1st thing in morning, 30-60 minutes before food/drink/other medications. Reports she recently had labs completed at [place]. Will sign release to get copy of labs. Assessment & Plan (02/19/2024 3:35 PM CDT): [...] daily Assessment & Plan (07/11/2023 12:30 PM SALES REPRESENTATIVE METALS): Chronic, stable Patient currently on Synthroid 100 [...] taken. Assessment & Plan (09/05/2022 2:44 PM SALES REPRESENTATIVE METALS): Clinically and biochemically euthyroid. No medication changes. [...] taken. Assessment & Plan (09/07/2020 4:37 PM SALES REPRESENTATIVE METALS): - Advised c/w Synthroid 100 mcg oral [...] taken. Assessment & Plan (05/18/2020 3:02 PM SALES REPRESENTATIVE METALS): - Advised c/w Synthroid 100 mcg oral [...] taken. Assessment & Plan (08/13/2019 11:59 AM SALES REPRESENTATIVE METALS): - Advised c/w Synthroid 100 mcg oral [...] taken. Assessment & Plan (05/06/2019 4:00 PM SALES REPRESENTATIVE METALS): - Advised c/w Synthroid 100 mcg oral [...] taken. Assessment & Plan (05/07/2018 2:24 PM SALES REPRESENTATIVE METALS): - Advised c/w Synthroid 100 mcg oral [...] use of insulin 02/13/2014 Assessment & Plan (02/18/2025 2:50 PM CDT): Chronic problem; uncontrolled. A1c worsened from 9.1% 08/12/24 to now 10.5%. poor food choices. Not taking meds as she should. Will start insulin glargine (long- acting) in evening (15 units). Current medications: Metformin 1000mg twice daily with meals Januvia 100mg daily Insulin glargine 15 units nightly Humalog 3 times daily with meals If blood sugar is <150, take 3 units. If blood sugar is between 151-200, take 4 units. If blood sugar is between 201-250, take 5 units. If blood sugar is between 251-300, take 6 units. If blood sugar is between 301-350, take 7 units. If blood sugar is between >351, take 8 units. DM eye exam 2024 at [facility] in [place]. Will send letter to get copy of report. Reports she recently had labs completed at [place]. Will sign release to get copy of labs. Discussed with Jh Lai: Strive for regular exercise (30min most days) and diet (get at least 4-5 servings of fruit and veggies daily, avoid processed foods, increase lean protein intake and decrease carb portions as well as fruit juices, regular soda & desserts). Watch carbs and simple sugars. Check the blood sugar: Dexcom G7. Check the feet daily for skin breakdown and infection. Assessment & Plan (02/19/2024 3:34 PM CDT): [...] months Assessment & Plan (07/11/2023 12:31 PM SALES REPRESENTATIVE METALS): Chronic, uncontrolled , improving but still above [...] scheduled Assessment & Plan (09/05/2022 2:56 PM SALES REPRESENTATIVE METALS): Chronic stable problem. Continue same medication regimen. [...] months Assessment & Plan (09/07/2020 4:38 PM SALES REPRESENTATIVE METALS): Chronic, uncontrolled, improving counseled on diet and [...] months Assessment & Plan (05/18/2020 3:01 PM SALES REPRESENTATIVE METALS): Chronic, uncontrolled, unchanged counseled on diet and [...] months Assessment & Plan (08/13/2019 11:59 AM SALES REPRESENTATIVE METALS): Diabetes is slightly worsening A1c 7.5 % [...] months Assessment & Plan (05/06/2019 4:00 PM SALES REPRESENTATIVE METALS): Diabetes is improving A1c 7.3 % Advise [...] weeks Assessment & Plan (05/07/2018 2:23 PM SALES REPRESENTATIVE METALS): Diabetes is fair controlled , unchanged A1c [...] dysphagia 04/30/2020 020 Functional diarrhea 04/30/2020 04/30/20 Preoperative evaluation to r ule out surgical contraindication 07/10/2018 05/24/2024 Overview (04/18/2022): Added automatically from request for surgery [id number] Diabetic autonomic neuropath y associated with type 2 diabetes mellitus 11/21/2017 05/24/2024 Encounters Date Type Department Care Team Description 02/19/2025 Results Follow-Up [facility] Diabetes and Endocrinology [address] [place] [phone] Afua Vila NP Albumin Creatinine Ratio, Urine 02/18/2025 3:10 PM CDT Lab [address] [address] Type 2 diabetes mellitus with hyperglycemia, without long-term current use of insulin (HCC) 02/18/2025 1:30 PM CDT Office Visit [facility] Diabetes and Endocrinology [address] [place] [phone] Afua Vila NP Type 2 diabetes mellitus with hyperglycemia, without long-term current use of insulin (HCC) (Primary Dx); Hypertension associated with type 2 diabetes mellitus (HCC); Diabetic polyneuropathy associated with type 2 diabetes mellitus (HCC); Postoperative hypothyroidism 02/10/2025 1:10 PM CDT Office Visit [facility] Medicine Orthopaedic Surgery [address] [facility] 1st [address] [place] [address] Gama Hodge MD Rupture of extensor tendon of thumb (Primary Dx) 01/28/2025 [facility] [id number] [place] [address] [address] [place] [address] Leticia Crane MD [place] 01/21/2025 Telephone [facility] Obstetrics and Gynecology [address] [place] [address] 13th [place] [phone] Skyla Cherry MD Surgery 01/17/2025 8:30 AM CDT Office Visit [facility] Obstetrics and Gynecology [address] [place] [address] 13th [place] [phone] Skyla Cherry MD JUAN III (vulvar intraepithelial neoplasia III) (Primary Dx) 01/17/2025 Documentation [facility] Obstetrics and Gynecology [address] [place] [address] 13th [place] [phone] Marcy Borjas RN 01/07/2025 Telephone [facility] Diabetes and Endocrinology [address] [place] [phone] Leticia Crane MD Appointment/Schedules 12/31/2024 Orders Only [facility] Pathology Outreach [address] [place] [address] Skyla Cherry MD Moderate dysplasia of vulva 12/30/2024 Orders Only [facility] Obstetrics and Gynecology [address] [place] [address] 13th [place] [phone] Skyla Cherry MD Moderate dysplasia of vulva (Primary Dx) from Last 3 Months Immunizations Immunization Administration [...] History Date Comments Type 2 diabetes mellitus Sleep apnea Ventricular hypertrophy Osteoarthritis GERD (gastroesophageal [...] on file Legal Sex Female 10:44 PM SALES REPRESENTATIVE METALS Gender Identity Not on file Sexual Orientation Not on file Obstetrics History Last Filed Vital Signs Vital Sign Reading Time Taken Comments Blood Pressure 130/66 02/18/2025 1:37 PM CDT Pulse 76 02/18/2025 1:37 PM CDT Temperature 36.9 C (98.4 F) 01/17/2025 8:30 AM CDT Respiratory Rate 18 02/18/2025 1:37 PM CDT Oxygen Saturation 98% 01/17/2025 8:30 AM CDT Inhaled Oxygen Concentration - - Weight 58.7 kg (129 lb 8 oz) 02/18/2025 1:37 PM CDT Height 162.6 cm (5' 4) 02/18/2025 1:37 PM CDT Body Mass Index 22.23 02/18/2025 1:37 PM CDT Plan of Treatment Upcoming Encounters Date Type Department Care Team (Late st Contact Info) Description 03/27/2025 1:20 PM CDT Hospital Encounter [facility] [address] [place] [address] Gama Hodge MD [address] [facility] [address] [place] [address] 03/27/2025 1:20 PM CDT - 03/27/2025 3:05 PM CDT Surgery [facility] [address] [place] [address] Gama Hodge MD [address] [facility] [address] [place] [address] Right Hand Tendon Transfer Scheduled Procedures Name Priority Associated Diagnoses Date/Ti me TRANSFER TENDON - UPPER EXTREMITY Rupture of extensor tendon of right hand, initial encounter 03/27/2025 1:20 PM CDT WIDE LOCAL EXCISION - VULVA JUAN III (vulvar intraepithelial neoplasia III) LASER CO2 JUAN III (vulvar intraepithelial neoplasia III) Health Maintenance Due Date Last Done Comments [...] (2 - Td or Tdap) 12/18/2024 12/18/2014 Lipid Panel 02/18/2025 02/19/2024, 12/0 12/2021, 02/16/2021, Additional history exists eGFR 02/18/2025 02/19/2024, 12/0 12/2021, 02/16/2021, Additional history exists Influenza Vaccine (#1) 2025 , 02/27/2019, 02/26/2018, Additional history exists Hemoglobin A1C 08/21/2025 02/18/2025, 08/03, 02/19/2024, Additional history exists Albumin Creatinine Ratio, Urine 02/18/2026 02/18/2025, 02/19/2024, 09/06/2022, Additional history exists Foot Exam 02/18/2026 02/18/2025, 01/31, 10/25/2023, Additional history exists Colon Cancer Screening-Colonoscopy 05/13/2030 05/13/2020 Zoster Vaccine Completed 05/22/2019, 02/27/2019 Colon Cancer Screening-CT Colonography Discontinued 05/13/2020 Colon Cancer Screening-DNA Stool Discontinued 05/13/20 Colon Cancer Screening-FIT Discontinued 05/13/2020 Colon Cancer Screening-Sigmoidoscopy Discontinued 05/13/2020 Goals Goal Patient Goal Type Associated Problems Recent Progress Patient-Stated? Author Autogenerat ed Goal Care Plan Autogenerated Problem Ton Langley Procedures Procedure Name Priority Date/Time Associated Diagnosis Comments ALBUMIN CREATININE RATIO, URINE Routine 02/18/2025 3:30 PM CDT Type 2 diabetes mellitus with hyperglycemia, without long-term current use of insulin (HCC) POCT GLUCOSE Routine 02/18/2025 1:37 PM CDT Type 2 diabetes mellitus with hyperglycemia, without long-term current use of insulin (HCC) POCT HEMOGLOBIN A1C Routine 02/18/2025 1 :37 PM CDT Type 2 diabetes mellitus with hyperglycemia, without long-term current use of insulin (HCC) SURGICAL PATHOLOGY Routine 12/31/2024 8: 58 AM CDT Moderate dysplasia of vulva EGFR Routine 02/19/2024 2:47 PM CDT Type 2 diabetes mellitus with hyperglycemia, without long-term current use of insulin (HCC) Hypertension associated with type 2 diabetes mellitus (HCC) LIPID PANEL Routine 02/19/2024 2:47 PM CDT Type 2 diabetes mellitus with hyperglycemia, without long-term current use of insulin (HCC) DIABETIC EYE EXAM Routine 04/18/2022 COLONOSCOPY 05/13/2020 2:37 PM SALES REPRESENTATIVE METALS from Last 3 Months or Most Recently Relevant to Health Maintenance Results * (ABNORMAL) Albumin Creatinine Ratio, Urine (02/18/2025 3:30 PM CDT) Pathologist [facility] Albumin Ur 35.4 mg/L Comment: Interpretive Data No reference range established. Current interpretive data was last revised 2018. Creatinine Ur 92.9 mg/dL [facility] Comment: Interpretive Data No reference range established. Current interpretive data was last revised 2018. Albumin Creatinine Ratio, Ur 38(H) 1 - 29 mg/g [facility] ZAMORA Urine 02/18/2025 3:30 PM CDT 02/18/2025 6:26 PM CDT us Afua Vila NP LAB URINE ORDERABLES Leah l Result [facility] [address] [facility] Department [place] [address] * (ABNORMAL) POCT hemoglobin A1c (02/18/2025 1:37 PM CDT) Pathologist [facility] Hemoglobin A1C, POC 10.5(A) 4.0 - 5.6 % Capillary blood 02/18/2025 1 :37 PM CDT us Afua Vila NP POINT OF CARE TEST ORDERA BLES Final Result * (ABNORMAL) POCT glucose (02/18/2025 1:37 PM CDT) Glucose Blood, POC 304 Normal Fasting 70 - 100, Random <200 mg/dL Comment:Snack 2 Hrs Blood 02/18/2025 1:37 PM CDT us Afua Vila NP POINT OF CARE TEST ORDERA BLES Final Result * Surgical pathology (12/31/2024 8:58 AM CDT) Tissue (Miscellaneous) 12/31/2024 8:58 AM CDT 12/31/2024 8:58 AM CDT Narrative [facility] - 01/08/2025 5:50 PM CDT EPIC results best viewed via link to PDF [facility] Pathology Consult Service [address], [place] [address] Note to Patients: This report may contain a detailed description of human tissue sent by a health care provider to the laboratory for pathologic evaluation. The content of this report is essential for diagnosis and may provide important critical findings. This information may be unfamiliar to patients to review without a medical professional present. It is advised that the patient review this report in the presence of a health care provider who can answer questions and explain the details. SURGICAL PATHOLOGY REPORT * Consult Report * [facility] is providing an additional review of previously collected tissue. FINAL Patient Name: JH LAI Address: [address] [place] [address] Gender: F : 1955 (Age: 69) [facility] #: [id number] Patient Type: [facility] Location: UNKNOWN Taken: 12/31/2024 Received: 12/31/2024 Accessioned: 12/31/2024 Reported: 01/08/2025 Physician(s): Skyla Cherry M.D. [facility] Department of Pathology [address] [place] [address] P: [phone] F: [phone] Diagnosis: Consult material received from [facility], [place], [place] (OSC: [id number]; 12/18/2024): Vulva, not otherwise specified, punch biopsy - High-grade squamous intraepithelial lesion (HALEY 2, moderate squamous dysplasia) extending to periphery of biopsy hrk/12/31/2024 17:37 By this signature, I attest that the above diagnosis is based upon my personal examination of the slides(and/or other material indicated in the diagnosis). Beverly Moore M.D. Report Electronically Reviewed and Signed Out By Beverly Moore M.D. 01/08/2025 17:50:58 Microscopic Description and Comment: Microscopic examination substantiates the above cited diagnosis. P16 immunostain, performed at the outside institution and submitted for our review, shows block positive staining. Ki-67 immunostain shows proliferation extending to the midportion of the epithelium History: The patient is a 69-year-old woman with a diagnosis of of moderate dysplasia of vulva. Materials Received: Received for review are four slides labeled [id number], accompanied by a corresponding pathology report. The [place]. Selected slide(s) may be digitally scanned for our files, and all materials are returned to the referring institution, along with a copy of our final report. Any testing required for diagnostic purposes was performed in the Department of Pathology and Immunology at [facility], [address] [place] [address] CLIA # [id number] The performance characteristics of the testing cited in this report (if any) were determined by the [facility] Department of Pathology and Immunology [facility], as part of an ongoing quality control inspector program and in compliance with federally mandated regulations drawn from the Clinical Laboratory Improvement Act of 1988 (CLIA '88). Some of these tests rely on the use of analyte specific reagents (ASR) and are subject to specific labeling requirements by the US Food and Drug Administration. Such diagnostic tests may only be performed in a facility that is certified by the Department of Health and Human Services as a high complexity laboratory under CLIA '88. The FDA has determined that such clearance or approval is not necessary. ASRs should not be regarded as investigational or for research. ASRs were developed and the performance characteristics determined by the [facility], [facility] Department of Pathology and Immunology. It has not been cleared or approved by the U.S. Food and Drug Administration. Any test designated as LDT was developed and its performance characteristics determined by [facility]. It has not been cleared or approved by the FDA. This test is used for clinical purposes and should not be regarded as investigational or for research. Report images and/or scanned reports, if included, only viewable in PDF version of report. Skyla Cherry MD LAB PATHOLOGY ORDERABLE S Final Result Performing Organization Address City/[facility]/ZIP Co de Phone Number [facility] [address] [place] [address] * eGFR (02/19/2024 2:47 PM CDT) eGFR [...] of Race in Diagnosing Kidney Disease, JASN 202). The CKD-EPI equation should not be used for patients with unstable renal function and has not been validated in children and those over 70. Current interpretive data was last reviewed 2021. Blood 02/19/2024 2:47 PM CDT 02/19/2024 8:22 PM CDT Leticia Miller MD LAB BLOOD ORDERABLE S Final Result Performing Organization Address City/[facility]/ZIP Co de Phone Number CAMILO [place]ONTELON[place] [address] [address] Department [place] [address] * (ABNORMAL) Lipid panel (02/19/2024 2:47 PM [...] 2018. LDL, calculated 87 <=129 mg/dL CAMILO MONTELONGO Comment: Interpretive Data Ages [...] last revised on 2018. Chol/HDL ratio 3 [facility] Blood 02/19/2024 2:47 PM CDT 02/19/2024 8:00 PM CDT Leticia Miller MD LAB BLOOD ORDERABLE S Final Result CAMILO [address] [address] Department [place] [address] * Diabetic Eye Exam (04/18/2022) Historical Provider HEALTH MAINTENANCE Edited Result - Final * COLONOSCOPY (05/13/2020 2:37 PM SALES REPRESENTATIVE METALS) Anatomical Region Laterality Modality Other Narrative Procedure Note Fred Marc MD - 05/13/2020 2:37 PM CST - [facility] Patient Name: Jh Lai Procedure Date: 05/13/2020 2:37 PM Date of : 1955 Admit Type: Outpatient Age: 64 Gender: Female Note Status: Finalized Attending MD: Fred Marc M.D. Procedure Date: 05/13/2020 Procedure: Colonoscopy Indications: Chronic diarrhea Providers: Fred Marc M.D., Deloris Vo RN, [facility], Dedicated Truck Driver, Anselmo Arevalo M.D. ([facility] Referring MD: Janie Ghotra MD Medicines: [...] for surveillance. Procedure Code(s): --- Professional --- 82270, Colonoscopy, flexible; with biopsy, single or multiple Diagnosis Code(s): --- Professional --- K52.9, Noninfective gastroenteritis and colitis, unspecified K57.30, Diverticulosis of large intestine without perforation or abscess without bleeding CPT copyright 2017 [employer]. All rights reserved. The codes documented in this report are preliminary and upon commercial underwriter reviewmay be revised to meet current compliance requirements. Electronically signed by Fred Marc MD Fred Marc M.D. 05/13/2020 3:12:17 PM Number of Addenda: 0 Note Initiated On: 05/13/2020 2:37 PM Fred Marc MD ENDOSCOPY PROCEDURES Final Resul t from Last 3 Months or Most Recently Relevant to Health Maintenance Additional Health Concerns Active Problems Noted Date Diagnosed Date Autogenerated Problem 02/11/2025 Insurance [facility] MEDIC[facility] ADVANT[facility] Member Subscriber Plan / Payer (Ef fective 2019-Present) Name:Jh Lai Relation to Subscriber:Self Name:Jh Lai Payer ID:[id number] (NAIC) Type:[facility] MEDIC[facility] Address: [id number] [place] [address] UHC MEDICARE ADVANTAGE UHC MEDICARE ADVANTAGE Care Teams Roller Stitcher Relationship Specialty Start Date End Date Sherman Goodwin MD [address] [facility] [address] [place] [address] PCP - General Family Medicine 08/06/24 [place] [address] [facility] [address] [address] Consulting Physician Endocrinology 11/24/20 Jenni Leblanc PA [address] [facility] [address] [place] [address] Physician Fisherman Helper 06/20/23
--- OUTSIDE RECORDS SUMMARY | 2025-03-06 15:14 | XMS_ITS | Clinical Summary ---
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 Acti ve liothyronine (CYTOMEL) 5 mcg Tablet Take 5 mcg by mouth daily. Active amphetamine-dextr oamphetamine (ADDERALL XR) 20 mg Extended Release 24 hour capsule Take 20 mg by mouth daily game programmer. Acti ve metFORMIN (GLUCOPHAGE) 1,000 mg tablet [...] bedtime. Active fluticasone propionate (FLONASE) 50 mcg/spray [place], Suspension nasal inhaler Administer 2 Sprays in [...] FINGERS 4 Active mometasone (NASONEX) 50 mcg/actuation [place], Non-Aerosol Nasonex 50 mcg/actuation [place] Activ e levoFLOXacin (LEVAQUIN) 500 mg tablet [...] Take 1 Tablet by mouth. Active vit B,P-SX-vthr-coppe r oxide-E (STRESS B-COMPLEX) 500-400-23.9-3 qv-tcu-zs-mg Tablet Stress B-Complex Take one tablet daily [...] office injection administered by the provider Active jgvt-MX-gsh-epa-F RK-SSAE-eh-mv 1.5 mg iron- 8.73 mg capsule,IR & [...] dependent Active lancets 30 gauge 1 Each. 021 Active Active Problems Problem Noted Date Diagnosed Date Vascular insufficiency 01/27/2021 Type 2 diabetes mellitus without complication Iron deficiency anemia 06/04/2019 Encounters Date Type Department Care Team Description 01/15/2025 External Device Data [facility] ABSTRACTION Provider, Abstract 01/14/2025 External Device Data [facility] ABSTRACTION Provider, Abstract 12/17/2024 External Device Data [facility]STRACTION Provider, Abstract [...] - PCV) 03/31/2019 03/31/2018 OSTEOPOROSIS SCREENING 11/01/2019 DIABETES HBA1C Q 6 MONTHS 08/21/20242023, 07/10/2023, 12/26/2022, Additional history exists DTAP/TDAP/TD VACCINES (2 - T d or Tdap) 12/18/2024 12/18/2014 INFLUENZA VACCINE (#1) 2025 0, 02/27/2019, 02/26/2018, Additional history exists DIABETES ANNUAL FOOT EXAM 02/18/2025 02/19/2024 COLORECTAL SCREENING 05/13/2030 05/13/2020, 05/13/20 Colorectal Cancer Screening 05/13/2030 ZOSTER VACCINE Completed 05/22/2019, 02/27/[address] [place] [address] [facility] [address] [place] [address] [facility] [id number] Care Teams Coffee Machine Technician Relationship Specialty Start Date End Date Janie Ghotra MD PCP - General Family Practice 11/27/18
--- OUTSIDE RECORDS SUMMARY | 2025-03-06 15:14 | XMS_ITS | Clinical Summary ---
Author Organization [facility] Address [address] [place] [address] Care Team Providers Care Algebra Teacher Name Role Phone Obi Byrd MD Primary Care Provider [phone] Source Comments [facility],non-owned Affiliates and Associated Physician Practices is amultiple site organization consisting of ambulatory clinics and hospital sitesin [place], [place], [place] and [place]. This disclosure is being madepursuant to the Care Everywhere program and may not contain all information available regarding this patient. Last updated 18.[facility] Social History Tobacco Use Types Packs/Day Years [...] 2004 ZOSTER VACCINE (1 of 2) 2004 DEPRESSION SCREENING 07/03/2024 COVID-19 VACCINE ( - 2023-2 5 season) 2025 INFLUENZA VACCINE (#1) 2025 Respiratory Syncytial Virus (RSV) Vaccine Pt: [...] to complete this topic Insurance Care Teams Algebra Teacher Relationship Specialty [place] [address] [address] PCP - General Internal Medicine 11/10/15
[2025-03-06 15:52] LABS: Hematocrit 32.4 % (37.0-47.0); Hemoglobin 9.9 g/dL (12.0-15.0); Immature Granulocyte Percent A 0.5 % (0-0.5); Lymphocytes Absolute Auto 1.66 K/mm3 (0.9-3.2); Mean Corpuscular HGB Conc 30.6 g/dl (32-36); Mean Corpuscular Hemoglobin 25.3 pg (26-34); Mean Corpuscular Volume 82.9 fl (80-100); Nucleated Red Blood Cells Absolute Auto 0.000 K/mm3 (0.0-0.012); Nucleated Red Blood Cells Perc 0.0 % (0.0-0.2); Platelet Count Result 280 k/mm3 (150-375); Red Blood Count 3.91 M/mm3 (4.2-5.4); White Blood Count 7.5 K/mm3 (4.5-10.0)
[2025-03-06 16:00] LABS: Alanine Aminotransferase 16 U/L (6-35); Albumin Level 3.9 g/dL (3.5-5.1); Alkaline Phosphatase 89 U/L (38-126); Anion Gap 8 mmol/L (4-12); Aspartate Amino Transferase 22 U/L (14-36); Bilirubin,Total 0.4 mg/dL (0.2-1.3); Blood Urea Nitrogen 17 mg/dL (7-17); Calcium 9.4 mg/dL (8.4-10.2); Carbon Dioxide 27 mmol/L (22-30); Chloride 99 mmol/L (98-107); Estimated Glomerular Filt Rate > 60; Glucose 237 mg/dL (65-110); Potassium 4.6 mmol/L (3.4-5.0); Sodium 134 mmol/L (137-145); Total Protein 7.0 g/dL (6.3-8.2)
[2025-03-06 16:03] LABS: Iron 54 ug/dL (37-170)
[2025-03-06 16:14] LABS: Percent Iron Saturation 14 % (20-50)
[2025-03-06 16:26] LABS: Free T4 Free Thyroxine 1.52 ng/dL (0.78-2.19)
[2025-03-06 16:36] LABS: Thyroid Stimulating Hormone 1.290 uIU/mL (0.465-4.680)
[2025-03-06 16:55] LABS: Vitamin B12 943.0 pg/mL (239-931)
== END 2025-03-06 15:10 | disposition home or self-care (01) ==
PROVIDERS: PCP Family Medicine; Visit Provider Physician Assistant
DX: E07.9 Disorder of thyroid, unspecified (principal); E11.43 Type 2 diabetes mellitus with diabetic autonomic (poly)neuropathy; E06.3 Autoimmune thyroiditis; M25.561 Pain in right knee; D50.8 Other iron deficiency anemias
CPT/HCPCS: 36415; 73562; 80053; 82607; 83540; 83550; 84439; 84443; 85025

== ENCOUNTER 2025-04-24 15:44 | Outpatient (CLI) | payer MEDICARE, SELFPAY ==
[2025-04-24 16:21] LABS: Hematocrit 32.0 % (37.0-47.0); Hemoglobin 9.5 g/dL (12.0-15.0); Immature Granulocyte Percent A 0.5 % (0-0.5); Lymphocytes Absolute Auto 1.92 K/mm3 (0.9-3.2); Mean Corpuscular HGB Conc 29.7 g/dl (32-36); Mean Corpuscular Hemoglobin 24.1 pg (26-34); Mean Corpuscular Volume 81.0 fl (80-100); Nucleated Red Blood Cells Absolute Auto 0.000 K/mm3 (0.0-0.012); Nucleated Red Blood Cells Perc 0.0 % (0.0-0.2); Platelet Count Result 426 k/mm3 (150-375); Red Blood Count 3.95 M/mm3 (4.2-5.4); White Blood Count 8.4 K/mm3 (4.5-10.0)
[2025-04-24 16:32] LABS: Alanine Aminotransferase 15 U/L (6-35); Albumin Level 4.4 g/dL (3.5-5.1); Alkaline Phosphatase 66 U/L (38-126); Anion Gap 8 mmol/L (4-12); Aspartate Amino Transferase 27 U/L (14-36); Bilirubin,Total 0.2 mg/dL (0.2-1.3); Blood Urea Nitrogen 24 mg/dL (7-17); Calcium 9.5 mg/dL (8.4-10.2); Carbon Dioxide 30 mmol/L (22-30); Chloride 97 mmol/L (98-107); Estimated Glomerular Filt Rate > 60; Glucose 129 mg/dL (65-110); Potassium 4.6 mmol/L (3.4-5.0); Sodium 135 mmol/L (137-145); Total Protein 7.7 g/dL (6.3-8.2)
[2025-04-24 16:34] LABS: Hypochromasia 1+; Ovalocytes 1+; Schistocytes None Seen
[2025-04-24 16:35] LABS: Iron 31 ug/dL (37-170)
--- OUTSIDE RECORDS SUMMARY | 2025-04-24 16:35 | XMS_ITS | Clinical Summary ---
Author Organization [facility] Address [address] [place] [address] Care Team Providers Care Pet House Sitter Name Role Phone Obi Byrd MD Primary Care Provider [phone] Source Comments [facility],non-owned Affiliates and Associated Physician Practices is amultiple site organization consisting of ambulatory clinics and hospital sitesin [place], [place], [place] and [place]. This disclosure is being madepursuant to the Care Everywhere program and may not contain all information available regarding this patient. Last updated 18.[facility] Social History Tobacco Use Types Packs/Day Years [...] to complete this topic Insurance Care Teams Pet House Sitter Relationship Specialty [place] [address] [address] PCP - General Internal Medicine 11/10/15
--- OUTSIDE RECORDS SUMMARY | 2025-04-24 16:36 | XMS_ITS | Clinical Summary ---
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 Acti ve liothyronine (CYTOMEL) 5 mcg Tablet Take 5 mcg by mouth daily. 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 Acti ve metFORMIN (GLUCOPHAGE) 1,000 mg tablet [...] bedtime. Active fluticasone propionate (FLONASE) 50 mcg/spray [place], Suspension nasal inhaler Administer 2 Sprays in [...] FINGERS 4 Active mometasone (NASONEX) 50 mcg/actuation Bant[place], Non-Aerosol Nasonex 50 mcg/actuation [place] Activ e levoFLOXacin (LEVAQUIN) 500 mg tablet [...] Take 1 Tablet by mouth. Active vit B,V-YE-gdqs-coppe r oxide-E (STRESS B-COMPLEX) 500-400-23.9-3 rm-stu-xo-mg Tablet Stress B-Complex Take one tablet daily [...] office injection administered by the provider Active imji-VW-mrf-epa-F DA-PBTC-de-mv 1.5 mg iron- 8.73 mg capsule,IR & [...] TABLET BY MOUTH ONCE A WEEK Active blood sugar diagnostic (OneTouch Verio test [...] Encounters Date Type Department Care Team Description 04/24/2025 Orders Only [facility] Oncology and Hematology - [place] [address] [address] Vito Frausto MD Iron deficiency anemia, unspecified iron deficiency anemia type (Primary Dx) 03/18/2025 External Device Data [facility] ABSTRACTION Provider, Abstract 03/11/2025 External Device Data [facility] ABSTRACTION Provider, Abstract [...] 01/18/2022 2:19 PM CDT Plan of Treatment Upcoming Encounters Date Type Department Care Team (Late st Contact Info) Description 05/08/2025 2:45 PM CLINICAL DATA ANALYST Office Visit [facility] Oncology and Hematology [facility] [address] [facility] [address] [place] [address] Vito Frausto MD [address] [place] [address] Health Maintenance Due Date Last Done Comments DIABETES ANNUAL RETINAL EXAM 1972 DIABETES MICROALBUMIN ANNUAL SCREEN 1972 LDL CHOLESTEROL ANNUAL 1972 BREAST CANCER SCREENING 1994 FIT-DNA Q 3 years 11/01/1999 FIT/FOBT Q 1 year 11/01/1999 Flex Sig/CT Colonography Q 5 years 11/01/1999 RSV VACCINE (60+ or ) (1 - Risk 50-74 years 1-dose series) 2004 PNEUMOCOCCAL VACCINE 50+ YEA RS (2 of 2 - PCV) 03/31/2019 03/31/2018 OSTEOPOROSIS SCREENING 11/01/2019 [place] Preventative Visit/Annual Wellness Visit 07/03/2024 DIABETES HBA1C Q 6 MONTHS 08/21/20242023, 07/10/2023, 12/26/2022, Additional history exists DTAP/TDAP/TD VACCINES (2 - T d or Tdap) 12/18/2024 12/18/2014 INFLUENZA VACCINE (#1) 2025 0, 02/27/2019, 02/26/2018, Additional history exists DIABETES ANNUAL FOOT EXAM 02/18/2025 02/19/2024 COLORECTAL SCREENING 05/13/2030 05/13/2020, 05/13/20 Colorectal Cancer Screening 05/13/2030 ZOSTER VACCINE Completed 05/22/2019, 02/27/2019 Insurance Care Teams Senior Associate Relationship Specialty Start Date End Date Janie Ghotra MD PCP - General Family Practice 11/27/18
--- OUTSIDE RECORDS SUMMARY | 2025-04-24 16:36 | XMS_ITS | Encounter Summary ---
Author Organization [facility] Address [address] [place] [address] Care Team Providers Care Newspaper Editor Managing Name Role Phone Unavailable Primary Care Provider Unavailabl e Prior Encounters Date Type Department Care Team Description 07/22/2019 Converted CPS Chart Documents [facility] [address] [place] [phone] <No scans attached> 07/22/2019 Converted 13x Documents [facility] [address] [place] [phone] <No scans attached> Plan of Treatment Not [...]
--- OUTSIDE RECORDS SUMMARY | 2025-04-24 16:36 | XMS_ITS | Clinical Summary ---
Author Organization [facility] [address] [place] [address] [place] [id number] Care Team Providers Care Student Dean Name Role Phone Leticia Crane MD Unavailable [phone] Jenni Leblanc Unavailable [phone] Sherman Goodwin MD Primary Care Provider Allergies [...] Rash Medium 11/20/2017 Prochlorperazine Hives High 05/09/2014 Yfesslu-Rlv-Vpv Reductase Inhibitors Muscle pain Medium 09/21/2021 Medications [...] hyperglycemia, without long-term current use of insulin ([facility]) Take 1 tablet (1,000 mg total) by [...] as directed 100 each 1 024 Active glipiZIDE (GLUCOTROL) 5 mg tabletIndications :Type 2 diabetes mellitus with hyperglycemia, without long-term current use of insulin ([facility]) TAKE 1 TABLET BY MOUTH TWICE DAILY WITH MEALS 180 tablet 025 Active levothyroxine (SYNTHROID) 112 mcg tablet Take 1 tablet (112 mcg total) by mouth daily 025 Active insulin glargine 100 unit/mL (3 mL) pen for injectionIndicati ons:Type 2 diabetes mellitus with hyperglycemia, without long-term current use of insulin ([facility]) Inject 15 Units under the skin nightly 15 mL 3 025 2025 Active Contour Next Test Strips stripIndications: Type 2 diabetes mellitus with hyperglycemia, without long-term current use of insulin ([facility]) Check blood sugar 4 times daily if CGM failure 400 strip 3 025 Active blood-glucose meter (Contour Next EZ Meter) kitIndications:Ty pe 2 diabetes mellitus with hyperglycemia, without long-term current use of insulin ([facility]) Check blood sugar 4 times daily 1 kit 025 Active lancets 30 gauge miscIndications:T ype 2 diabetes mellitus with hyperglycemia, without long-term current use of insulin ([facility]) 1 each 4 (four) times a day before meals and nightly Dx:E11.65 not insulin dependent 400 each 3 025 2025 Active insulin lispro (HumaLOG, ADMELOG) 100 unit/mL pen for injectionIndicati ons:Type 2 diabetes mellitus with hyperglycemia, without long-term current use of insulin ([facility]) INJECT 3 TO 8 UNITS SUBCUTANEOUSLY THREE TIMES DAILY WITH MEALS 15 mL 1 025 Active liothyronine (CYTOMEL) 5 mcg tabletIndications :Postoperative hypothyroidism Take 1 tablet by mouth once daily 90 tablet 025 Active liothyronine (CYTOMEL) 5 mcg tabletIndications :Postoperative hypothyroidism Take 1 tablet (5 mcg total) by mouth daily 90 tablet 3 024 2024 Discontinued Active Problems Problem Noted Date Diagnosed Date Rupture of extensor tendon of right hand 025 JUAN III (vulvar intraepithelial neoplasia III) 0 01/17/2025 Arthritis 04/04/2024 Hypertension associated with type 2 diabetes mariia litus 09/01/2022 Assessment & Plan (02/18/2025 2:49 PM CDT): Chronic problem. Currently taking losartan 50mg daily Reports she recently had labs completed at [place]. Will sign release to get copy of labs. Assessment & Plan (02/19/2024 3:31 PM CDT): Chronic, fairly controlled C/w losartan Assessment & Plan (10/29/2023 9:41 PM CDT): Chronic, fairly controlled C/w losartan Assessment & Plan (07/11/2023 12:30 PM LIBRARY TECHNICAL ASSISTANT): Chronic, well controlled C/w losartan Assessment & Plan (03/20/2023 4:01 PM CDT): Chronic, well controlled C/w losartan Assessment & Plan (12/26/2022 10:00 PM CDT): Chronic, well controlled C/w losartan Assessment & Plan (09/05/2022 2:43 PM LIBRARY TECHNICAL ASSISTANT): Controlled on losartan. No changes. Acquired trigger [...] (04/30/2020): Added automatically from request for surgery [id number] Osteoarthritis of carpometacarpal (CMC) joint of thumb [...] barefoot. Assessment & Plan (07/11/2023 12:30 PM LIBRARY TECHNICAL ASSISTANT): Keep working on better glycemic control C/w [...] relief Assessment & Plan (09/07/2020 4:37 PM LIBRARY TECHNICAL ASSISTANT): Keep working on better glycemic control C/w gabapentin for symptomatic relief Assessment & Plan (05/18/2020 3:02 PM LIBRARY TECHNICAL ASSISTANT): Keep working on better glycemic control C/w gabapentin for symptomatic relief Assessment & Plan (02/10/2020 1:14 PM CDT): Keep working on better glycemic control C/w gabapentin for symptomatic relief Assessment & Plan (11/04/2019 3:27 PM CDT): Keep working on better glycemic control C/w gabapentin for symptomatic relief Assessment & Plan (08/13/2019 11:59 AM LIBRARY TECHNICAL ASSISTANT): Keep working on better glycemic control C/w gabapentin for symptomatic relief Assessment & Plan (05/06/2019 4:01 PM LIBRARY TECHNICAL ASSISTANT): Keep working on better glycemic control C/w gabapentin for symptomatic relief Assessment & Plan (05/07/2018 2:25 PM LIBRARY TECHNICAL ASSISTANT): Keep working on better glycemic control Bariatric surgery status 11/20/2017 Assessment & Plan (05/06/2019 4:01 PM LIBRARY TECHNICAL ASSISTANT): serum calcium and ionized gallito and vitamin [...] Reports she recently had labs completed at [place]. Will sign release to get copy of [...] daily Assessment & Plan (07/11/2023 12:30 PM LIBRARY TECHNICAL ASSISTANT): Chronic, stable Patient currently on Synthroid 100 [...] taken. Assessment & Plan (09/05/2022 2:44 PM LIBRARY TECHNICAL ASSISTANT): Clinically and biochemically euthyroid. No medication changes. [...] taken. Assessment & Plan (09/07/2020 4:37 PM LIBRARY TECHNICAL ASSISTANT): - Advised c/w Synthroid 100 mcg oral [...] taken. Assessment & Plan (05/18/2020 3:02 PM LIBRARY TECHNICAL ASSISTANT): - Advised c/w Synthroid 100 mcg oral [...] taken. Assessment & Plan (08/13/2019 11:59 AM LIBRARY TECHNICAL ASSISTANT): - Advised c/w Synthroid 100 mcg oral [...] taken. Assessment & Plan (05/06/2019 4:00 PM LIBRARY TECHNICAL ASSISTANT): - Advised c/w Synthroid 100 mcg oral [...] taken. Assessment & Plan (05/07/2018 2:24 PM LIBRARY TECHNICAL ASSISTANT): - Advised c/w Synthroid 100 mcg oral [...] 8 units. DM eye exam 2024 at [facility] in [place]. Will send letter to get copy of report. Reports she recently had labs completed at [place]. Will sign release to get copy of labs. Discussed with Mehdi Lai: Strive for regular exercise (30min most [...] months Assessment & Plan (07/11/2023 12:31 PM LIBRARY TECHNICAL ASSISTANT): Chronic, uncontrolled , improving but still above [...] scheduled Assessment & Plan (09/05/2022 2:56 PM LIBRARY TECHNICAL ASSISTANT): Chronic stable problem. Continue same medication regimen. [...] months Assessment & Plan (09/07/2020 4:38 PM LIBRARY TECHNICAL ASSISTANT): Chronic, uncontrolled, improving counseled on diet and [...] months Assessment & Plan (05/18/2020 3:01 PM LIBRARY TECHNICAL ASSISTANT): Chronic, uncontrolled, unchanged counseled on diet and [...] months Assessment & Plan (08/13/2019 11:59 AM LIBRARY TECHNICAL ASSISTANT): Diabetes is slightly worsening A1c 7.5 % [...] months Assessment & Plan (05/06/2019 4:00 PM LIBRARY TECHNICAL ASSISTANT): Diabetes is improving A1c 7.3 % Advise [...] weeks Assessment & Plan (05/07/2018 2:23 PM LIBRARY TECHNICAL ASSISTANT): Diabetes is fair controlled , unchanged A1c [...] (04/18/2022): Added automatically from request for surgery [id number] Diabetic autonomic neuropath y associated with type 2 diabetes mellitus 11/21/2017 05/24/2024 Encounters Date Type Department Care Team Description 04/08/2025 Telephone [facility] Diabetes and Endocrinology [address] [place] [phone] Leticia Crane MD [facility] care considerations 03/18/2025 Telephone [facility] Medicine Orthopaedic Surgery [address] [facility] [address] 1st [address] [place] [address] Daily, SUSHIL Paul 03/17/2025 Telephone [facility] Medicine Obstetrics and Gynecology [address] [facility] 13th [place] [address] [place] [address] Skyla Cherry MD Surgery 03/11/2025 Orders Only [facility] Diabetes and Endocrinology [address] [place] [phone] Myron Weber MD 03/07/2025 Orders Only [facility] [address] [address] [place] [address] Myron Weber MD 02/19/2025 Results Follow-Up [facility] Diabetes and Endocrinology [address] [place] [address] Afua V[place], REMOTE MEDICAL CODER Albumin Creatinine Ratio, Urine 02/18/2025 3:10 PM CDT Lab [address] [address] Type 2 diabetes mellitus with hyperglycemia, without long-term current use of insulin (HCC) 02/18/2025 1:30 PM CDT Office Visit [facility] Diabetes and Endocrinology [address] [place] [phone] Afua Vila, LISSA Type 2 diabetes mellitus with hyperglycemia, without long-term current use of insulin (HCC) (Primary Dx); Hypertension associated with type 2 diabetes mellitus (HCC); Diabetic polyneuropathy associated with type 2 diabetes mellitus (HCC); Postoperative hypothyroidism 02/10/2025 1:10 PM CDT Office Visit [facility] Orthopaedic Surgery [address] [facility] 1st [address] [place] [address] Gama Hodge MD Rupture of extensor tendon of thumb (Primary Dx) 01/28/2025 Telephone [facility] [id number] [place] [address] [address] [place] [address] Leticia Crane MD [facility] from Last 3 Months Immunizations Immunization Administration [...] on file Legal Sex Female 10:44 PM LIBRARY TECHNICAL ASSISTANT Gender Identity Not on file Sexual Orientation [...] 02/18/2025 1:37 PM CDT Plan of Treatment Health Maintenance Due Date Last Done Comments Breast Cancer Screening-Mammogram 1955 Hepatitis C Screening 1955 Osteoporosis Screening-Bone Density Scan 1955 Hepatitis B Screening 1972 Pneumococcal vaccine 65+ (2 of 2 - PCV) 03/31/2019 03/31/2018 Well Visit 65+ 11/01/2019 Depression Screening 04/21/2023 04/21/2022, 02/16/2021, 09/07/2020, Additional history exists Fall Risk Assessment 10/24/2024 10/25/2023, 05/13/20 DTaP/Tdap/Td Vaccine (2 - Td or Tdap) 12/18/2024 12/18/2014 Lipid Panel 02/18/2025 02/19/2024, 12/0 12/2021, 02/16/2021, Additional history exists Influenza Vaccine (#1) 2025 , 02/27/2019, 02/26/2018, Additional history exists Hemoglobin A1C 08/21/2025 02/18/2025, 12/01, 08/12/2024, Additional history exists eGFR 12/10/2025 12/10/2024, 01/31, 06/07/2022, Additional history exists Albumin Creatinine Ratio, Urine 02/18/2026 02/18/2025, 02/19/2024, 09/06/2022, Additional history exists Foot Exam 02/18/2026 02/18/2025, 01/31, 10/25/2023, Additional history exists Dilated Eye Exam 03/05/2026 03/05/2025, , 04/05/2021 Colon Cancer Screening-Colonoscopy 05/13/2030 05/13/2020 Zoster Vaccine Completed 05/22/2019, 02/27/2019 Colon Cancer Screening-CT Colonography Discontinued 05/13/2020 Colon Cancer Screening-DNA Stool Discontinued 05/13/20 Colon Cancer Screening-FIT Discontinued 05/13/2020 Colon Cancer Screening-Sigmoidoscopy Discontinued 05/13/2020 Procedures Procedure Name Priority Date/Time Associated Diagnosis Comments HM DIABETES EYE EXAM Routine 03/05/2025 7:07 AM CDT ALBUMIN CREATININE RATIO, URINE Routine 02/18/2025 3:30 [...] without long-term current use of insulin (HCC) COMPREHENSIVE METABOLIC PANEL Routine 12/10/2024 LIPID PANEL Routine 02/19/2024 2:47 PM CDT Type 2 diabetes mellitus with hyperglycemia, without long-term current use of insulin (HCC) COLONOSCOPY 05/13/2020 2:37 PM LIBRARY TECHNICAL ASSISTANT from Last 3 Months or Most Recently Relevant to Health Maintenance Results * DIABETES EYE EXAM (03/05/2025 7:07 AM CDT) Historical Provider HEALTH MAINTENANCE Final Result * (ABNORMAL) Albumin Creatinine Ratio, Urine (02/18/2025 3:30 PM CDT) Albumin Ur 35.4 mg/L Comment: Interpretive Data No reference range established. Current interpretive data was last revised 2018. Creatinine Ur 92.9 mg/dL [facility] Comment: Interpretive Data No reference range established. Current interpretive data was last revised 2018. Albumin Creatinine Ratio, Ur 38(H) 1 - 29 mg/g [facility] Urine 02/18/2025 3:30 PM CDT 02/18/2025 6:26 PM CDT Afua Vila NP LAB URINE ORDERABLES Leah l Result [facility] [address] [facility] [place] [address] * (ABNORMAL) POCT hemoglobin A1c (02/18/2025 1:37 PM CDT) Hemoglobin A1C, POC 10.5(A) 4.0 - 5.6 % Capillary blood 02/18/2025 1 :37 PM CDT Afua Vila NP POINT OF CARE TEST ORDERA BLES Final Result * (ABNORMAL) POCT glucose (02/18/2025 1:37 PM CDT) Glucose Blood, POC 304 Normal Fasting 70 - 100, Random <200 mg/dL Comment:Snack 2 Hrs Blood 02/18/2025 1:37 PM CDT Afua Vila REMOTE MEDICAL CODER POINT OF CARE TEST ORDERA BLES Final Result * (ABNORMAL) Comprehensive metabolic panel (12/10/2024) SCRIBED Sodium 139 137 - 145 mmol/L EXTERNAL LAB SCRIBED Potassium 4.9 3.4 - 5.0 mmol/L EXTERNAL LAB SCRIBED Chloride 103 98 - 107 mmol/L EXTERNAL LAB SCRIBED Carbon Dioxide 28 22 - 30 mmol/L EXTERNAL LAB SCRIBED Anion Gap 8 4 - 12 mmol/L EXTERNAL LAB SCRIBED Urea Nitrogen (BUN) 19(A) 7 - 17 mg/dL EXTERNAL LAB SCRIBED Creatinine 0.82 0.7 - 1.0 mg/dL EXTERNAL LAB SCRIBED Glucose 154(A) 65 - 110 mg/dL EXTERNAL LAB SCRIBED Calcium 9.5 8.4 - 10.2 mg/dL EXTERNAL LAB SCRIBED Bilirubin 0.4 0.2 - 1.3 mg/dL EXTERNAL LAB SCRIBED Plasma Protein 6.8 6.3 - 8.2 g/dL EXTERNAL LAB SCRIBED Albumin 3.9 3.5 - 5.1 g/dL EXTERNAL LAB SCRIBED Alkaline Phosphatase 60 38 - 126 Units/L EXTERNAL LAB SCRIBED Alanine Transaminase (ALT) 16 6 - 35 Units/L EXTERNAL LAB SCRIBED Aspartate Transaminase (AST) 25 14 - 36 Units/L EXTERNAL LAB SCRIBED eGFR 60 >=60 mL/min/1.7 3 m2 EXTERNAL LAB Blood 12/10/2024 us Historical Provider LAB BLOOD ORDERABLES Edit ed Result - Final EXTERNAL LAB * (ABNORMAL) Lipid panel (02/19/2024 2:47 PM [...] on 2018. Non-HDL Cholesterol 122 mg/dL [facility] Comment: Interpretive Data Ages < [...] last revised on 2018. Chol/HDL ratio 3 [facility] Blood 02/19/2024 2:47 PM CDT 02/19/2024 8:00 PM CDT us Leticia Miller MD LAB BLOOD ORDERABLE S Final Result [facility] [address] Department [place] [address] * COLONOSCOPY (05/13/2020 2:37 PM LIBRARY TECHNICAL ASSISTANT) Anatomical Region Laterality Modality Other Narrative Procedure Note Fred Marc MD - 05/13/2020 2:37 PM CST - [facility] Endoscopy Lab Patient Name: Mehdi Lai Procedure Date: 05/13/2020 2:37 PM Date of : 1955 Admit Type: Outpatient Age: 64 Gender: Female Note Status: Finalized Attending MD: Fred Marc M.D. Procedure Date: 05/13/2020 Procedure: Colonoscopy Indications: Chronic diarrhea Providers: Fred Marc M.D., Deloris Vo RN, [facility], Services Delivery Driver, Anselmo Arevalo M.D. ([facility] Referring MD: Janie Ghotra MD Medicines: [...] for surveillance. Procedure Code(s): --- Professional --- 27338, Colonoscopy, flexible; with biopsy, single or multiple Diagnosis Code(s): --- Professional --- K52.9, Noninfective gastroenteritis and colitis, unspecified K57.30, Diverticulosis of large intestine without perforation or abscess without bleeding CPT copyright 2017 [employer]. All rights reserved. The codes documented in this report are preliminary and upon remote medical coder reviewmay be revised to meet current compliance requirements. Electronically signed by Fred Marc MD Fred Marc M.D. 05/13/2020 3:12:17 PM Number of Addenda: 0 Note Initiated On: 05/13/2020 2:37 PM Fred Marc MD ENDOSCOPY PROCEDURES Final Resul t from Last 3 Months or Most Recently Relevant to Health Maintenance Insurance [facility] MEDICARE ADVANTAGE [facility] [place] [address] [facility] MEDICARE ADVANTAGE Care Teams Student Dean Relationship Specialty Start Date End Date Sherman Goodwin MD [address] [place] [address] PCP - General Family Medicine 08/06/24 [place] [address] [facility] [address] [place] [address] Consulting Physician Endocrinology 11/24/20 Jenni Leblanc PA [address] [place] [address] Physician Cash Grain Grower 06/20/23
--- OUTSIDE RECORDS SUMMARY | 2025-04-24 16:36 | XMS_ITS | Encounter Summary ---
Author Organization [facility] [employer] [facility] Address [address] [place] [address] Care Team Providers Care Benefits Representative Name Role Phone Janie Ghotra MD Primary Care Provider + [phone] Encounter Details Date Type Department Care Team (Late Contact Info) Description 04/24/2025 Orders Only [facility] Oncology and Hematology - [address] [place] [address] Vito Frausto MD [address] [facility] [address] [place] [address] Iron deficiency anemia, unspecified iron deficiency anemia type (Primary Dx) Social History Tobacco Use Types Packs/Day Years Used Date Smoking Tobacco: Former Cigarettes 2 18 0 12/05/1973 - 12/06/1991 Smokeless Tobacco: Never Alcohol Use Standard Drinks/Week Comments Not Currently 0 (1 standard drink = 0.6 oz pur e alcohol) Comments No Sex and Gender Information Value Date Recorded Sex Assigned at Not on file Legal Sex Female 12:35 PM CDT Gender Identity Not on file Sexual Orientation Not on file documented as of this encounter Plan of Treatment Upcoming Encounters Date Type Department Care Team (Late Contact Info) Description 05/08/2025 2:45 PM INDIGO VAT TENDER CLOTH Office Visit [facility] Oncology and Hematology - [address] [place] [address] Vito Frausto MD [address] [facility] [address] [place] [phone] Scheduled Orders Name Type Priority Associated Diagnoses Orde r Schedule CBC WITH DIFFERENTIAL Lab Routine Iron deficiency anemia, unspecified iron deficiency anemia type Expected: 04/24/2025, Expires: 04/24/2026 COMPREHENSIVE METABOLIC PANEL Lab Routine Iron deficiency anemia, unspecified iron deficiency anemia type Expected: 04/24/2025, Expires: 04/24/2026 IRON, TIBC, AND PERCENT SATURATION Lab Routine Iron deficiency anemia, unspecified iron deficiency anemia type Expected: 04/24/2025, Expires: 04/24/2026 FERRITIN Lab Routine Iron deficiency anemia, unspecified iron deficiency anemia type Expected: 04/24/2025, Expires: 04/24/2026 VITAMIN B12 AND FOLATE Lab Routine Iron deficiency anemia, unspecified iron deficiency anemia type Expected: 04/24/2025, Expires: 04/24/2026 documented as of this encounter Visit Diagnoses Diagnosis Iron deficiency anemia, unspecified iron deficiency anemia type- Primary documented in this encounter Care Teams Benefits Representative Relationship Specialty Start Date End Date Janie Ghotra MD PCP - General Family Practice 11/27/18 documented as of this encounter
--- OUTSIDE RECORDS SUMMARY | 2025-04-24 16:36 | XMS_ITS | Clinical Summary ---
Author Organization [facility] Health Address [address] [place] [address] Care Team Providers Care Bench Tool Maker Name Role Phone Unavailable Primary Care Provider [...]
[2025-04-24 16:45] LABS: Percent Iron Saturation 8 % (20-50)
[2025-04-24 17:16] LABS: Ferritin 6.27 ng/mL (11.1-264)
[2025-04-24 17:42] LABS: Vitamin B12 990.0 pg/mL (239-931)
== END 2025-04-24 15:45 | disposition home or self-care (01) ==
LOC: ANHLAB 15:44
PROVIDERS: PCP Family Medicine; Visit Provider Internal Medicine Hematology & Oncology
DX: D50.9 Iron deficiency anemia, unspecified (principal)
CPT/HCPCS: 36415; 80053; 82607; 82728; 82746; 83540; 83550; 85025

== ENCOUNTER 2025-05-01 18:39 | Emergency (ER) | payer MEDICARE, SELFPAY ==
--- NOTE | 2025-05-01 18:45 | ED.FEMALEGU ---
HPI - Female Genitourinary General Chief complaint: Urogenital-Female Stated complaint: UTI Time Seen by Provider: 05/01/25 18:43 Source: patient Mode of arrival: ambulatory Limitations: no limitations History of Present Illness HPI Narrative: Patient is a 69-year-old female who presents with 1 week of burning after urination that worsened in the last few hours. Patient states she was shopping when all the sudden symptoms hit her harder. Denies any fever, chills, nausea, vomiting, diarrhea, low back pain. Patient was on Bactrim for abscess on hip and symptoms had resolved and then returned a week later MD elicited complaint: dysuria Related Data Home Medications ?Medication ?Instructions ?Recorded ?Confirmed ?Last Taken ?Type cetirizine 10 mg tablet (Zyrtec) 10 mg PO DAILY 05/23/19 04/10/25 Unknown History fluticasone propionate 50 2 spray intranasal BID 05/23/19 04/10/25 Unknown History mcg/actuation nasal spray,suspension sitagliptin phosphate 100 mg 100 mg PO DAILY 05/23/19 04/10/25 Unknown History tablet (Januvia) biotin 2,500 mcg capsule 5,000 mcg PO DAILY 06/02/19 04/10/25 Unknown History CBD Gummies PO 06/06/24 04/10/25 Unknown History ezetimibe 10 mg tablet (Zetia) 10 mg PO DAILY 10/08/24 04/10/25 Unknown History liothyronine 5 mcg tablet (Cytomel) 5 mcg PO BID 10/08/24 04/10/25 Unknown History calcium 500 mg (as 2 tablet PO DAILY 12/12/24 04/10/25 Unknown History carbonate)-vitamin D3 3.125 mcg (125 unit) tablet (Calcium) immodium PO 12/12/24 04/10/25 Unknown History insulin glargine 100 unit/mL 15 unit subcut QAM 03/06/25 04/10/25 Unknown History subcutaneous solution (Lantus U-100 Insulin) insulin lispro 100 unit/mL 1 sliding scale dose subcut 03/06/25 04/10/25 Unknown History subcutaneous cartridge (Humalog USEASDIRECTD U-100 Insulin) Held on 04/24/25. Instructions: Patient no longer taking metformin 1,000 mg tablet 1,000 mg PO BID 03/06/25 04/10/25 Unknown History Allergies Allergy/AdvReac Type Severity Reaction Status Date / Time azithromycin Allergy Intermediate Hives / Verified 05/01/25 20:13 Red Face Beta-Blockers Allergy Intermediate respiratory Verified 05/01/25 20:13 (Beta-Adrenergic Bloc distress bupivacaine Allergy Intermediate Hives Verified 05/01/25 20:13 cephalexin Allergy Intermediate Hives Verified 05/01/25 20:13 codeine Allergy Intermediate Hives / Verified 05/01/25 20:13 Red Face doxycycline Allergy Intermediate Hives Verified 05/01/25 19:17 erythromycin base Allergy Intermediate Hives / Verified 05/01/25 19:17 Red Face oxycodone Allergy Intermediate Hives / Verified 05/01/25 19:17 Red Face prochlorperazine Allergy Intermediate Hives Verified 05/01/25 19:17 promethazine Allergy Intermediate Hives Verified 05/01/25 19:17 epinephrine Allergy Unknown Unknown Verified 05/01/25 19:17 vancomycin Allergy unknown Verified 05/01/25 20:13 [id number] Reductase AdvReac Intermediate Cramping Verified 05/01/25 19:17 Inhibitor of the Muscles Review of Systems Review of Systems: All systems reviewed & are unremarkable except as noted in HPI and below Constitutional: Constitutional: Denies chills, Denies fever(s), Denies headache(s), Denies malaise and Denies weakness Eyes: Eyes: Denies change in vision, Denies eye discharge and Denies irritation ENT: Denies otalgia, Denies headache(s), Denies nasal congestion, Denies nasal discharge, Denies sinus pain and Denies sore throat Cardiovascular: Cardiovascular: Denies chest pain, Denies edema, Denies palpitations and Denies dyspnea Respiratory: Respiratory: Denies cough and Denies dyspnea Gastrointestinal: Gastrointestinal: Denies abdominal pain, Denies diarrhea, Denies nausea and Denies vomiting Genitourinary: Genitourinary: Denies hematuria, Reports nocturia, Reports dysuria, Denies flank pain and Reports urinary urgency Musculoskeletal: Musculoskeletal: Denies back pain and Denies numbness Integumentary/Breasts: Skin/Breast: Denies pruritus and Denies rash Neurologic: Denies headache(s), Denies numbness and Denies weakness Psychiatric: Psychiatric: Reports no additional psychiatric complaints Endocrine: Endocrine: Denies palpitations PMFSH Past Medical History Medical History ROGE (generalized anxiety disorder) Habitual self-excoriation Coronary artery spasm Kidney stones Gall stones Chronic diarrhea Opioid dependence Incontinence of feces Unspecified open wound of abdominal wall, unspecified quadrant without penetration into peritoneal cavity, subsequent encounter Chronic cluster headache, not intractable Chronic pain disorder Continuous urine leakage Hypothyroidism, acquired, autoimmune MDD (major depressive disorder), recurrent episode, moderate Metacarpophalangeal joint pain of right hand Mixed obsessional thoughts and acts Other iron deficiency anemias Primary osteoarthritis of first carpometacarpal joint of left hand Surgical History Surgical History H/O gynecological procedure 1983 ASCUS colposcopy hysterotomy & D&C *UTERUS/OVARIES INTACTS* June 1984 hysterotomy History of cholecystectomy History of appendectomy Status post gastric bypass for obesity History of thyroidectomy History of parathyroidectomy History of tonsillectomy History of umbilical hernia repair Family History Family History Mother Diabetes mellitus Hypertension Patient's mother is in good health Family history of coronary artery disease Father Diabetes mellitus Patient's father is Family history of cardiovascular disease Social History Social History Social History: Smoking status: Former smoker Tobacco type: cigarettes Second hand tobacco smoke exposure: No Smoking end date: 07/03/91 Alcohol intake: never Substance use: never Substance use type: marijuana Do You Feel Safe in your Home?: Yes Lack of Transportation: YES Lack of Food: Never True Current Housing: Decline to Answer Concerned About Future Housing: Decline to Answer Difficulty Paying Gas/Electric Bills: Decline to Answer Difficulty Paying for Meds: YES Currently Unemployed: Decline to Answer Education: Bachelor's Degree Difficulty w/ Childcare or Family Care: Decline to Answer Living arrangements: with family Additional living arrangements comments: lives with mother Occupation/Education: retired Gender identity (if verbalized by the patient): Female Sexual Orientation (if Verbalized by the Patient): Straight or Heterosexual Comments At time of signature, agree with nursing past medical, surgical, social and family history. There is no relevant family history pertinent to the presenting complaint. Exam Const: General: cooperative, healthy appearing, comfortable, no acute distress and well nourished Nutritional Appearance: well nourished Orientation/consciousness: patient oriented x3 HENMT: Head: normocephalic and atraumatic Ears: external ears normal Face/Nose/Sinus: Normal external nose present, Normal nares present and normal facial exam Face and sinus: normal facial exam Eyes: General: appearance normal, both eyes and all related structures Pupils: Equal, round and reactive pupils present EOM: EOMs intact bilaterally Neck: Neck: normal visual inspection, full ROM and supple Chest: Chest palpation & inspection: normal inspection of the chest Resp: Effort & Inspection: normal respiratory effort and able to speak in complete sentences Cardio: Rate: regular rate Rhythm: regular rhythm GI: Inspection: normal to inspection GI Palp: No abdominal tenderness and Yes Soft to palpation : General: Yes no CVA tenderness Back/Spine/Pelvis: Back: no CVA tenderness Skin: General skin exam: normal color and no rashes or lesions noted Neuro: General: patient oriented x3 and moves all extremities Cranial nerves: Yes Equal, round and reactive pupils present Extrem: General: normal to inspection and full ROM Psych: Appearance: grossly normal and well kempt Course Course Emergency Course: Patient is aware of diagnosis, understands and agrees to treatment plan. Anticipatory guidance given. Patient agrees to follow-up as directed and is aware of reasons to seek care at the emergency department. Portions of this record may have been created with voice recognition software Level of Care: Express Care Visit Vital Signs Vital signs: Vital Signs Temperature 36.2 C L 05/01/25 18:55 Pulse Rate 85 05/01/25 18:55 Respiratory Rate 16 05/01/25 18:55 Blood Pressure 143/54 H 05/01/25 18:55 Pulse Oximetry 100 05/01/25 18:55 Oxygen Delivery Room Air 05/01/25 18:55 Temperature 36.2 C L 05/01/25 18:55 Pulse Rate 85 05/01/25 18:55 Respiratory Rate 16 05/01/25 18:55 Blood Pressure 143/54 H 05/01/25 18:55 Pulse Oximetry 100 05/01/25 18:55 Oxygen Delivery Room Air 05/01/25 18:55 Reviewed MDM - Female Genitourinary MDM Narrative Medical decision making narrative: Positive for UTI. Will treat with Augmentin as patient has several allergies and was just on Bactrim within the last month. Pt well hydrated appearing, in no respiratory distress, hemodynamically stable. Recommend supportive care. The patient is stable at time of discharge the clinical impression was discussed and the patient was given the opportunity to ask questions, which were addressed as completely as possible given the information available at present. Anticipatory guidance and return to care precautions were discussed and the importance of primary care follow-up was stressed and encouraged. The patient voiced understanding of the plan, indications to return, and the need for follow-up. Exam findings show no acute concerns or changes Patient is appropriate for outpatient treatment and follow-up. Differential Diagnosis Differential diagnosis: Likely urinary tract infection, bacterial vaginosis, trichomoniasis, cervicitis, vaginitis and cystitis Medical Records Attestation: I reviewed the patient's medical records. Lab Data Attestation: I reviewed the patient's lab results. Labs: Lab Results 05/01/25 Range/Units 19:31 POC Urine Color Yellow POC Urine Clarity Cloudy POC Urine pH 7.5 POC Ur Specif [place] 1.020 POC Urine Protein Negative (Negative) POC Ur Glucose (UA) Negative (Negative) POC Urine Ketones Negative (Negative) POC Urine Blood Negative (Negative) POC Urine Nitrite Positive (Negative) POC Urine Bilirubin Negative (Negative) POC Urine Urobilinogen 2.0 POC U Leukocyte Esteras 1+ (Negative) Discharge Plan Discharge Clinical Impression: Acute UTI Patient Disposition: Home Condition: Stable Instructions: Urinary Tract Infection in Women (ED) Additional Instructions: We will send a urine culture to the lab, based on your symptoms and urine dip we will start treatment today. If culture comes back and bacteria is not susceptible to antibiotic, your prescription may change. Your symptoms should improve within a day of starting antibiotics, but you should finish all the antibiotic pills you get. Otherwise your infection might come back Continue with increased water intake. Take Tylenol or ibuprofen as needed for pain or fever. Follow-up with primary care provider for urine recheck or see ER visit if condition worsens with high fever, nausea, vomiting, severe back pain Patient Language: Yoruba Prescriptions: New amoxicillin-pot clavulanate 875-125 mg tablet 1 tablet PO Q12H 7 Days Qty: 14 0RF No Action biotin 2,500 mcg Capsule 5,000 mcg PO DAILY calcium carbonate-vitamin D3 [Calcium 500 + D (D3)] 500 mg-3.125 mcg (125 unit) tablet 2 tablet PO DAILY fluticasone propionate [Flonase Allergy Relief] 50 mcg/actuation spray,suspension 1 spray intranasal DAILY Qty: 16 0RF Rx Instructions: administer into each nostril albuterol sulfate 90 mcg/actuation HFA aerosol inhaler 1 inh inhalation Q4H PRN (Reason: shortness of breath or wheezing) Qty: 6.7 0RF sertraline [Zoloft] 100 mg tablet 150 mg PO DAILY Qty: 135 2RF CBD Gummies PO liothyronine [Cytomel] 5 mcg tablet 5 mcg PO BID losartan 25 mg tablet 25 mg PO DAILY Qty: 90 1RF ezetimibe [Zetia] 10 mg tablet 10 mg PO DAILY Patient Comments: as per cardio immodium PO metformin 1,000 mg tablet 1,000 mg PO BID insulin glargine [Lantus U-100 Insulin] 100 unit/mL solution 15 unit subcut QAM Humalog U-100 Insulin 100 unit/mL cartridge 1 sliding scale dose subcut USEASDIRECTD Januvia 100 mg tablet 100 mg PO DAILY cetirizine [Zyrtec] 10 mg tablet 10 mg PO DAILY fluticasone propionate 50 mcg/actuation spray,suspension 2 spray NASAL BID clonazepam [Klonopin] 1 mg tablet 1 - 2 mg PO DAILY Qty: 60 1RF sulfamethoxazole-trimethoprim [Bactrim DS] 800-160 mg tablet 1 tablet PO Q12H Qty: 12 0RF esomeprazole magnesium [Nexium] 40 mg capsule,delayed release(DR/EC) 40 mg PO DAILY Qty: 100 3RF montelukast 10 mg tablet See Rx Instructions .ROUTE .COMPLEX Qty: 90 2RF Dose Instruction: Take 1 tablet by mouth once daily Rx Instructions: Take 1 tablet by mouth once daily mupirocin 2 % ointment See Rx Instructions .ROUTE .COMPLEX Qty: 22 0RF Dose Instruction: APPLY OINTMENT TOPICALLY TO THE AFFECTED AREA(S) TWICE DAILY Rx Instructions: APPLY OINTMENT TOPICALLY TO THE AFFECTED AREA(S) TWICE DAILY divalproex 125 mg tablet,delayed release (DR/EC) See Rx Instructions .ROUTE .COMPLEX Qty: 180 1RF Dose Instruction: Take 1 tablet by mouth twice daily Rx Instructions: Take 1 tablet by mouth twice daily alendronate 70 mg tablet See Rx Instructions .ROUTE .COMPLEX Qty: 12 1RF Dose Instruction: Take 1 tablet by mouth once a week Rx Instructions: Take 1 tablet by mouth once a week levothyroxine 112 mcg tablet See Rx Instructions .ROUTE .COMPLEX Qty: 90 1RF Dose Instruction: Take 1 tablet by mouth once daily Rx Instructions: Take 1 tablet by mouth once daily gabapentin 300 mg capsule 300 mg PO TID Qty: 270 0RF dextroamphetamine-amphetamine [Adderall XR] 20 mg capsule,extended release 24hr 20 mg PO DAILY Qty: 30 0RF hydrocodone-acetaminophen 5-325 mg tablet 1 tablet PO Q8H PRN (Reason: pain) Qty: 90 0RF Follow-up/Referrals: Sherman Goodwin MD [Primary Care Provider, Family Practice] - 3 Days Time of Disposition: 20:09
[2025-05-01 18:55] VITALS: BP 143/54; PULSE 85; RESP 16; TEMP 36.2; O2SAT 100
[2025-05-01 19:37] LABS: EDUAAPPEAR Cloudy; EDUABILI Negative (Negative); EDUABLOOD Negative (Negative); EDUACOLOR1 Yellow; EDUAGLUCOSE Negative (Negative); EDUAKETONE Negative (Negative); EDUALEUKO 1+ (Negative); EDUANITRATE Positive (Negative); EDUAPH 7.5; EDUAPROTEIN Negative (Negative); EDUASPGRAVITY 1.020; EDUAUROBILI 2.0
== END 2025-05-01 20:16 | disposition home or self-care (01) ==
PROVIDERS: Emergency Provider Nurse Practitioner Family; PCP Family Medicine
DX: N39.0 Urinary tract infection, site not specified (principal); E03.9 Hypothyroidism, unspecified; M18.12 Unilateral primary osteoarthritis of first carpometacarpal joint, left hand; Z87.891 Personal history of nicotine dependence
CPT/HCPCS: 81003; 87077; 87086; 87186; 99213; G0463